=== PATIENT | male | born 1945 | race Caucasian/White ===

== ENCOUNTER 2018-01-03 00:15 | Emergency (ER) | payer MEDICARE ==
[2018-01-03] MEDS ORDERED: SODIUM CHLORIDE 0.9% 1,000 ML IV ONE (00:27)
[2018-01-03] MEDS ORDERED: ONDANSETRON 4 MG/2 ML VIAL IVP STA (00:27)
[2018-01-03] MEDS ORDERED: fentaNYL 100 MCG/2 ML VIAL IVP STA (00:44)
[2018-01-03 01:32] LABS: BASOPHILS # (AUTO) 0.1 10^3/uL (0.0-0.1); BASOPHILS % (AUTO) 1.7 %; EOSINOPHILS # (AUTO) 0.1 10^3/uL (0.0-0.7); EOSINOPHILS % (AUTO) 2.3 %; HGB - HEMOGLOBIN 16.4 g/dL (14.0-18.0); LYMPHOCYTES # (AUTO) 0.7 10^3/uL (1.5-3.5); LYMPHOCYTES % (AUTO) 11.3 %; MEAN CORPUSCULAR HEMOGLOBIN 28.8 pg (27.0-31.0); MEAN CORPUSCULAR HGB CONC 34.4 g/dL (32.0-36.0); MEAN CORPUSCULAR VOLUME 83.9 fL (80.0-94.0); MONOCYTES # (AUTO) 0.4 10^3/uL (0.0-1.0); MONOCYTES % (AUTO) 6.6 %; NEUTROPHILS # (AUTO) 4.7 10^3/uL (1.5-6.6); NEUTROPHILS % (AUTO) 78.1 %; PLT - PLATELET COUNT 181 10^3/uL (130-450); RED BLOOD COUNT 5.68 10^6/uL (4.70-6.10); RED CELL DISTRIBUTION WIDTH 14.2 % (12.0-15.0)
--- NOTE | 2018-01-03 01:32 | ED Physician Documentation ---
History of Present Illness - Stated complaint Stated Complaint: ABD PX - Chief complaint Chief Complaint: Abd Pain - History obtained from History obtained from: Patient - Additonal information Additional information: 72-year-old male presents the emergency department with mid abdominal pain which started earlier this evening. The patient's symptoms are described as moderate. The patient's pain is associated with nausea but the patient denies vomiting or diarrhea. The patient had an episode of pain similar to this a week ago which resolved spontaneously. The patient denies fever, chest pain or shortness of breath. The patient was recently diagnosed with metastatic melanoma but has not started therapy yet. No triggering factors. No relieving factors. Review of Systems Constitutional: denies: Fever Eyes: denies: Discharge Ears: denies: Ear pain Nose: denies: Congestion Throat: denies: Sore throat Cardiac: denies: Chest pain / pressure Respiratory: denies: Cough GI: reports: Abdominal Pain, Nausea. denies: Vomiting, Diarrhea : denies: Dysuria Skin: denies: Rash Musculoskeletal: denies: Neck pain Neurologic: denies: Generalized weakness Immunocompromised: denies: Asplenic, Transplant PD PAST MEDICAL HISTORY - Past Medical History Past Medical History: Yes Cardiovascular: Hypertension Respiratory: None Neuro: None Endocrine/Autoimmune: None, HyPOthyroidism GI: Other : Kidney stones HEENT: Other Musculoskeletal: Other Derm: Other - Past Surgical History Past Surgical History: Yes General: Other HEENT: Tonsil/Adenoidectomy - Present Medications Home Medications: Ambulatory Orders Medication Instructions Recorded Confirmed Levothyroxine Sodium [Levoxyl] 0 mg PO DAILY 08/28/15 12/30/17 hydroCHLOROthiazide 12.5 mg PO DAILY 08/28/15 12/30/17 [Hydrochlorothiazide] Hydrocodone/Acetaminophen 1 each PO Q6H PRN #14 tablet 01/03/18 [Hydrocodon-Acetaminophen 5-325] Ondansetron Odt [Zofran] 4 mg TL Q6H PRN #30 tablet 01/03/18 - Allergies Allergies/Adverse Reactions: Allergies Allergy/AdvReac Type Severity Reaction Status Date / Time morphine AdvReac Unknown Verified 01/03/18 00:26 - Social History Does the pt smoke?: No Smoking Status: Never smoker Does the pt drink ETOH?: No Does the pt have substance abuse?: No - Immunizations Immunizations are current?: Yes - POLST Patient has POLST: No PD ED PE NORMAL - General General: Alert and oriented X 3. No: No acute distress (The patient appears acutely uncomfortable) - HEENT HEENT: Atraumatic, PERRL, EOMI, Ears normal, Moist mucous membranes - Cardiac Cardiac: RRR, Strong equal pulses - Respiratory Respiratory: No respiratory distress, Clear bilaterally - Abdomen Abdomen: Soft, Non distended. No: Non tender (The patient is tender generalized throughout his abdomen, he has no rebound or peritoneal signs) - Derm Derm: Normal color - Extremities Extremities: No deformity, No tenderness to palpate, No edema - Neuro Neuro: Alert and oriented X 3, Normal speech - Psych Psych: Normal affect Results - Vitals Vitals: Vital Signs - 24 hr 01/03/18 01/03/18 01/03/18 00:24 01:22 02:43 Temperature 36.4 C L Heart Rate 61 53 L 94 Respiratory 18 16 17 Rate Blood Pressure 141/75 H 138/82 H 132/87 H O2 Saturation 98 95 98 Oxygen O2 Source Room air - EKG (time done) 02:14 Rate: Rate (enter#) Rhythm: Sinus bradycardia Intervals: Normal DC, QRS normal Ischemia: Normal ST segments - Labs Labs: Laboratory Tests 01/03/18 01/03/18 01/03/18 01:16 01:16 02:25 WBC 6.0 RBC 5.68 Hgb 16.4 Hct 47.7 MCV 83.9 MCH 28.8 MCHC 34.4 RDW 14.2 Plt Count 181 MPV 9.0 Neut # (Auto) 4.7 Lymph # (Auto) 0.7 L [place] # (Auto) 0.4 Eos # (Auto) 0.1 Baso # (Auto) 0.1 Absolute Nucleated RBC 0.00 Nucleated RBC % 0.1 Sodium 137 Potassium 3.1 L Chloride 103 Carbon Dioxide 26 Anion Gap 8.0 BUN 24 H Creatinine 0.8 Estimated GFR (MDRD) 95 Glucose 129 H Calcium 8.2 L Total Bilirubin 0.7 AST 18 ALT 13 Alkaline Phosphatase 54 Total Protein 6.1 L Albumin 3.4 Globulin 2.7 Albumin/Globulin Ratio 1.3 Lipase 24 Urine Color YELLOW Urine Clarity CLEAR Urine pH 6.0 Ur Specific [place] 1.020 Urine Protein NEGATIVE Urine Glucose (UA) NEGATIVE Urine Ketones NEGATIVE Urine Occult Blood NEGATIVE Urine Nitrite NEGATIVE Urine Bilirubin NEGATIVE Urine Urobilinogen 0.2 (NORMAL) Ur Leukocyte Esterase NEGATIVE Ur Microscopic Review NOT INDICATED Urine Culture Comments NOT INDICATED - Rads (name of study) CT abdomen/pelvis Radiology: Final report received (1. No acute inflammatory or obstructive process seen in the abdomen or pelvis 2. Widespread metastatic disease in the lungs, right kidney, peritoneal cavity, and subcutaneous tissues at least.3. Approximately 5 cm soft tissue density at the fundus of the gallbladder. Favor stone and/or sludge ball over metastasis. 4. Fatty liver. 5. Mildly enlarged prostate. ) PD MEDICAL DECISION MAKING - ED course ED course: The patient's workup does not reveal any acute abnormality that would necessitate admission to the hospital or acute surgical consultation. The patient is aware of the metastatic disease which apparently is from melanoma. The patient is already following with oncology and is scheduled to start therapy. The patient's pain on reevaluation is under control. I discussed with the patient and his the findings and plan for discharge. I discussed warning signs and recommended returning to the emergency department immediately for any worsening or any concerns. - Sepsis Event Vital Signs: Vital Signs - 24 hr 01/03/18 01/03/18 01/03/18 00:24 01:22 02:43 Temperature 36.4 C L Heart Rate 61 53 L 94 Respiratory 18 16 17 Rate Blood Pressure 141/75 H 138/82 H 132/87 H O2 Saturation 98 95 98 Oxygen O2 Source Room air Departure - Departure Disposition: 01 Home, Self Care Clinical Impression: Metastatic disease Abdominal pain Qualifiers: Abdominal location: generalized Qualified Code(s): R10.84 - Generalized abdominal pain Gallstone Qualifiers: Cholecystitis presence: without cholecystitis Biliary obstruction: without biliary obstruction Qualified Code(s): K80.20 - Calculus of gallbladder without cholecystitis without obstruction Condition: Good Instructions: Abdominal Pain, Gallstones Dc Follow-Up: Joanna hSepherd MD [Primary Care Provider] - ANUSHA DALEY MD [Provider Admit Priv/Credential] - (Call to schedule an appointment for further evaluation of your gallstone) Prescriptions: Hydrocodone/Acetaminophen [Hydrocodon-Acetaminophen 5-325] 1 each PO Q6H PRN # 14 tablet PRN Reason: pain Ondansetron Odt [Zofran] 4 mg TL Q6H PRN #30 tablet PRN Reason: Nausea / Vomiting Comments: Please return to the ER for worsening symptoms or any concerns
[2018-01-03 02:03] LABS: ALBUMIN 3.4 g/dL (3.2-5.5); ALBUMIN/GLOBULIN RATIO 1.3 (1.0-2.2); BILIRUBIN,TOTAL 0.7 mg/dL (0.2-1.0); CALCIUM 8.2 mg/dL (8.5-10.3); CREATININE 0.8 mg/dL (0.6-1.2); TOTAL PROTEIN 6.1 g/dL (6.7-8.2)
[2018-01-03] MEDS ORDERED: IOPAMIDOL-300 100 ML VIAL ONE (02:05)
[2018-01-03 02:31] LABS: BILIRUBIN,URINE NEGATIVE (NEGATIVE); GLUCOSE, URINE (UA) NEGATIVE (NEGATIVE); KETONES,URINE (UA) NEGATIVE (NEGATIVE); LEUKOCYTE ESTERASE, URINE NEGATIVE (NEGATIVE); NITRITE,URINE NEGATIVE (NEGATIVE); OCCULT BLOOD,URINE NEGATIVE (NEGATIVE); PROTEIN,URINE NEGATIVE (NEGATIVE); UROBILINOGEN,URINE 0.2 (NORMAL) E.U./dL (NORMAL)
[2018-01-03 02:32] LABS: CLARITY,URINE CLEAR (CLEAR)
[2018-01-03] MEDS ORDERED: POTASSIUM CHLORIDE 20 MEQ TABLET PO STA (02:36)
[2018-01-03 02:45] VITALS: BP 132/87
[2018-01-03] MEDS ORDERED: IOPAMIDOL-300 100 ML VIAL IVP ONE (02:48)
--- NOTE | 2018-01-03 03:01 | CT Report ---
Reason: abdominal pain Procedure Date: 01/03/2018 Accession Number: [id number] / [id number] Procedure: CT - Abdomen/Pelvis W/ CPT Code: FULL RESULT: EXAM: CT ABDOMEN AND PELVIS EXAM DATE: 01/03/2018 02:46 AM. CLINICAL HISTORY: Abdominal pain, metastatic melanoma. COMPARISONS: None. TECHNIQUE: Routine helical CT imaging was performed through the abdomen and pelvis. IV contrast: Yes . Enteric contrast: No . Reconstructions: Coronal and sagittal. In accordance with CT protocol optimization, one or more of the following dose reduction techniques were utilized for this exam: automated exposure control, adjustment of mA and/or KV based on patient size, or use of iterative reconstructive technique. FINDINGS: Lung Bases: Numerous pulmonary nodules, consistent with metastatic disease. Liver: Fatty. No definitively suspicious masses. Indeterminate tiny hypodensity in the left liver on image 14, favor cyst. Gallbladder/Bile Ducts: Soft tissue density at the fundus of the gallbladder measuring more than 5 cm without evidence of definitive cholecystitis. Spleen: Unremarkable. Pancreas: Unremarkable. Adrenal Glands: Unremarkable. Kidneys: Right renal solid nodule posteriorly on image 35 measures 28 x 27 mm. Additional right renal cysts. No suspicious left renal masses or hydronephrosis. Peritoneal Cavity/Bowel: No bowel obstruction or inflammatory process seen. No free air or significant free fluid. No masses or adenopathy. The appendix is not seen but there is no evidence of appendicitis. No excessive stool burden. Peritoneal nodule anterior to the liver measuring 13 mm on image 17. Peritoneal nodule noted on image 52 series 3 right paramedian measuring approximately 5 mm. Additional couple of left pelvic sidewall nodules measuring up to 10 mm on image 49. Pelvic Organs: Mildly enlarged prostate. The bladder appears within normal limits. Vasculature: No aneurysms or other significant abnormality. Bones: No significant abnormality. Other: Several subcutaneous nodules, consistent with metastases. These measure up to 18 mm in the right buttock on image 69. Abnormal left inguinal node or subcutaneous metastasis on image 79 measuring 18 x 21 mm. No retroperitoneal adenopathy. IMPRESSION: 1. No acute inflammatory or obstructive process seen in the abdomen or pelvis. 2. Widespread metastatic disease in the lungs, right kidney, peritoneal cavity, and subcutaneous tissues at least. 3. Approximately 5 cm soft tissue density at the fundus of the gallbladder. Favor stone and/or sludge ball over metastasis. 4. Fatty liver. 5. Mildly enlarged prostate. RADIA
== END 2018-01-03 03:30 | disposition home or self-care (01) ==
LOC: ED 00:15
DX: C43.9 Malignant melanoma of skin, unspecified (principal); R10.84 Generalized abdominal pain; K80.20 Calculus of gallbladder without cholecystitis without obstruction; R94.31 Abnormal electrocardiogram [ECG] [EKG]; I10 Essential (primary) hypertension; E03.9 Hypothyroidism, unspecified
CPT/HCPCS: 36415; 74177; 80053; 81003; 83690; 85025; 93005; 96361; 96374; 99284; A9270; Q9967; 81001; 87086

== ENCOUNTER 2018-02-04 12:34 | Outpatient (CLI) | payer MEDICARE ==
[2018-02-04] MEDS ORDERED: SODIUM CHLORIDE FLUSH 0.9% 10 ML SYRINGE ONE (13:07)
--- NOTE | 2018-02-04 16:14 | XRAY Report ---
Reason: OBESITY, HTN, MELANOMA, STAVE IV Procedure Date: 02/04/2018 Accession Number: [id number] / [id number] Procedure: XR - Chest 2 View X-Ray CPT Code: 16577 FULL RESULT: EXAM: CHEST RADIOGRAPHY EXAM DATE: 02/04/2018 12:46 PM. CLINICAL HISTORY: Obesity, hypertension, melanoma stage IV. COMPARISON: 02/17/2010 6:23 AM ABDOMEN/PELVIS W/ 01/03/2018 2:32 AM. TECHNIQUE: 2 views. FINDINGS: Interval development of multiple pulmonary masses. The largest mass in the right lung measures 2.8 cm. The largest left lung mass measures 3.9 cm. At least three additional approximately 1 cm masses are seen in the lower left lung. IMPRESSION: Interval development of pulmonary metastases measuring up to 3.9 cm as described. RADIA
== END 2018-02-04 12:35 | disposition home or self-care (01) ==
LOC: DI 12:34
PROVIDERS: ATTEND Internal Medicine Gastroenterology
DX: C43.9 Malignant melanoma of skin, unspecified (principal); C78.00 Secondary malignant neoplasm of unspecified lung; E66.9 Obesity, unspecified; I10 Essential (primary) hypertension
CPT/HCPCS: 71046

== ENCOUNTER 2018-02-05 13:47 | Outpatient (CLI) | payer MEDICARE ==
[2018-02-05 14:27] LABS: BASOPHILS % (AUTO) 0.4 %; EOSINOPHILS # (AUTO) 0.2 10^3/uL (0.0-0.7); HGB - HEMOGLOBIN 15.7 g/dL (14.0-18.0); LYMPHOCYTES # (AUTO) 0.6 10^3/uL (1.5-3.5); LYMPHOCYTES % (AUTO) 10.9 %; MEAN CORPUSCULAR HEMOGLOBIN 28.6 pg (27.0-31.0); MEAN CORPUSCULAR HGB CONC 33.9 g/dL (32.0-36.0); MEAN CORPUSCULAR VOLUME 84.1 fL (80.0-94.0); MEAN PLATELET VOLUME 8.4 fL (7.4-11.4); MONOCYTES # (AUTO) 0.5 10^3/uL (0.0-1.0); MONOCYTES % (AUTO) 8.7 %; NEUTROPHILS # (AUTO) 4.1 10^3/uL (1.5-6.6); PLT - PLATELET COUNT 184 10^3/uL (130-450); RED CELL DISTRIBUTION WIDTH 13.8 % (12.0-15.0); WHITE BLOOD COUNT 5.3 x10^3/uL (4.8-10.8)
[2018-02-05 14:39] LABS: ALBUMIN 3.7 g/dL (3.2-5.5); ALBUMIN/GLOBULIN RATIO 1.2 (1.0-2.2); BILIRUBIN,TOTAL 0.9 mg/dL (0.2-1.0); CALCIUM 8.8 mg/dL (8.5-10.3); CREATININE 0.8 mg/dL (0.6-1.2); TOTAL PROTEIN 6.8 g/dL (6.7-8.2)
== END 2018-02-05 13:48 | disposition home or self-care (01) ==
LOC: LAB 13:47
PROVIDERS: ATTEND Internal Medicine Gastroenterology
DX: Z01.812 Encounter for preprocedural laboratory examination (principal); C43.9 Malignant melanoma of skin, unspecified
CPT/HCPCS: 36415; 80053; 85025

== ENCOUNTER 2018-02-09 09:11 | Day surgery (SDC) | payer MEDICARE ==
[2018-02-09] MEDS ORDERED: ceFAZolin 2 GM/50 ML 2 GM/50 ML BAG IV ONE (09:26)
--- NOTE | 2018-02-09 09:43 | ANESTHESIA ---
Pre-Anesthesia VS, & Labs - Diagnosis stage 4 melanoma - Procedure portacath placement Vital Signs: Temp Pulse Resp BP Pulse Ox 36.4 C L 72 18 138/80 H 97 02/09/18 09:32 02/09/18 09:32 02/09/18 09:32 02/09/18 09:32 02/09/18 09:32 Height 5 ft 10 in Weight (kg) 100 kg Body Mass Index 32.3 - NPO >8 hours Home Medications and Allergies Levothyroxine Sodium [Levoxyl] 0 mg PO DAILY 08/28/15 hydroCHLOROthiazide [Hydrochlorothiazide] 12.5 mg PO DAILY 08/28/15 Allergies/Adverse Reactions: Allergies Allergy/AdvReac Type Severity Reaction Status Date / Time morphine AdvReac Itching Verified 02/09/18 09:34 Anes History & Medical History - Anesthetic History Anesthesia Complications: reports: No previous complications - Medical History Cardiovascular: reports: Hypertension. denies: Angina Pulmonary: reports: Shortness of breath (states recently has sob with exertion) Gastrointestinal: reports: GERD, Other (takes tums) Urinary: reports: Kidney stones Neuro: reports: None Musculoskeletal: reports: Other Endocrine/Autoimmune: reports: None, HyPOthyroidism Blood Disorders: reports: None Skin: reports: Other Smoking Status: Never smoker - Surgical History General: Other Eyes Ears Nose Throat (EENT): Tonsil/Adenoidectomy, Other (thyroidectomy) Exam General: Alert Dental: WNL, Partials Upper Mouth Openin Fingerbreadth Neck Mobility: Normal Mallampati classification: II Thyromental Distance: 4-6 cm Respiratory: Lungs clear Cardiovascular: Regular rate, Normal S1, Normal S2 Mental/Cognitive Status: Alert/Oriented X3 Plan Anesthesia Type: MAC Consent for Procedure(s) Verified and Reviewed: Yes Code Status: Attempt Resuscitation ASA classification: 4-Incapacitating disease (secondary to metatasitic disease) Is this case an emergency?: No
[2018-02-09] MEDS ORDERED: LACTATED RINGERS 1,000 ML IV ONE ×2 (09:52→12:54)
[2018-02-09] MEDS ORDERED: LIDOCAINE-MPF 1% 30 ML VIAL ONE (09:57)
[2018-02-09] MEDS ORDERED: SODIUM CHLORIDE FLUSH 0.9% 10 ML SYRINGE ONE (09:58)
[2018-02-09] MEDS ORDERED: ceFAZolin 1 GM VIAL ONE (10:01)
[2018-02-09 10:38] LABS: CALCIUM 8.5 mg/dL (8.5-10.3)
[2018-02-09] MEDS ORDERED: LIDOCAINE-MPF 2% 5 ML VIAL IM ONE (10:50)
[2018-02-09] MEDS ORDERED: MIDAZOLAM 2 MG/2 ML VIAL IVP ONE (10:50)
[2018-02-09] MEDS ORDERED: KETAMINE 500 MG/10 ML VIAL IVP ONE (10:50)
[2018-02-09] MEDS ORDERED: PROPOFOL 1000 MG/100 ML IV ONE (10:50)
[2018-02-09] MEDS ORDERED: PROPOFOL 200 MG/20 ML VIAL IVP ONE (10:50)
[2018-02-09] MEDS ORDERED: GLYCOPYRROLATE 1 MG/5 ML VIAL IVP ONE (10:50)
[2018-02-09] MEDS ORDERED: oxyCODONE 5 MG TABLET PO PRN (12:59)
[2018-02-09] MEDS ORDERED: ONDANSETRON 4 MG/2 ML VIAL IVP PRN (12:59)
[2018-02-09 14:38] VITALS: BP 120/66
--- NOTE | 2018-02-09 15:28 | XRAY Report ---
Reason: port a cath placement Procedure Date: 02/09/2018 Accession Number: [id number] / [id number] Procedure: FL - OR Port-A-Cath CPT Code: FULL RESULT: EXAM: FLUOROSCOPIC GUIDANCE EXAM DATE: 02/09/2018 12:37 PM. CLINICAL HISTORY: Port a cath placement. COMPARISON: None. FINDINGS IMPRESSION: Fluoroscopic guidance provided for right Port-A-Cath placement.. Total number of images: 1. RADIA
--- NOTE | 2018-02-09 15:32 | XRAY Report ---
Reason: s/p port placement Procedure Date: 02/09/2018 Accession Number: [id number] / [id number] Procedure: XR - Chest 1 View X-Ray CPT Code: 23863 FULL RESULT: EXAM: CHEST RADIOGRAPHY EXAM DATE: 02/09/2018 01:41 PM. CLINICAL HISTORY: S/p port placement. Metastatic melanoma COMPARISON: 02/04/2018 TECHNIQUE: 1 view. FINDINGS: Lungs/Pleura: Shallow inspiratory effort. No pneumothorax or pleural fluid. Multiple bilateral pulmonary metastasis. Mediastinum: Within exam limitations, the cardiomediastinal contour is unremarkable. Other: Right Port-A-Cath ends at approximately the cavoatrial junction. Question destructive lesion right shoulder. Suggest correlation with the any history of surgery or trauma to the right shoulder. If no significant history exists consider right shoulder x-rays. Surgical clip right chest IMPRESSION: Multiple metastatic lesions to the lungs. Right Port-A-Cath in place. Question destructive lesion right shoulder. See above. RADIA
--- NOTE | 2018-02-09 15:59 | PROCEDURE REPORT ---
DATE OF SERVICE: 02/09/2018 Physician: Con Luz MD PREOPERATIVE DIAGNOSIS: Stage IV melanoma. POSTOPERATIVE DIAGNOSIS: Stage IV melanoma. PROCEDURE PERFORMED: Insertion of PowerPort implantable venous access device. ANESTHESIA: Local plus monitored anesthesia care by Trino Haines CRNA. SURGEON: Con Luz MD ESTIMATED BLOOD LOSS: Minimal. COMPLICATIONS: None. FINDINGS: Initial attempts at placement on the left side were unsuccessful due to inability to pass the guidewire into the central venous circulation. On the right side; however, this was able to be accomplished. A standard PowerPort reservoir was placed in the right infraclavicular location with catheter tip located in the superior vena cava, near the junction with the right atrium confirmed on fluoroscopy. INDICATIONS: Patient is a 72-year-old gentleman with recent diagnosis of stage IV melanoma. He is in need of venous access to facilitate palliative chemotherapy and was advised to undergo placement of an implantable venous access device. TECHNIQUE: After informed consent, the patient was taken to the operating room where he was sedated and monitored. Preoperative preparation included application of sequential calf compression boots, administration 2 grams cefazolin intravenously within an hour of the incision. His anterior neck and chest wall were prepared with ChloraPrep solution and draped in the usual sterile fashion. Lidocaine 1% plain was used for local infiltration anesthesia, approximately 15 mL was used altogether. Beginning with the left side the patient was placed in Trendelenburg position. Needle and syringe were used to easily percutaneously access the left subclavian vein via an infraclavicular approach. The vein was readily accessed and a guidewire was passed into the subclavian vein, but was unable to be passed centrally with the catheter continuing to migrate up the internal jugular vein despite all the usual maneuvers. The guide wire was removed and then using ultrasound guidance, the left internal jugular vein was identified and cannulated. However, attempts to pass centrally were also unsuccessful with guidewire repeatedly entering the cephalic vein and the subclavian vein and unable to be passed centrally. Therefore, the needle and guidewire were removed and then attention was turned to the right side where using an infraclavicular approach, needle and syringe were used to access the right subclavian vein and a guidewire was able to be passed into the central venous circulation with guidewire location confirmed with fluoroscopy. The tract was dilated and an 8-[place] catheter, which had been soaked in antibiotic solution and flushed with heparinized saline was then advanced through the breakaway sheath into the central venous circulation. The sheath was removed. Catheter tip was confirmed to be located near the junction of the SVC and the right atrium. Catheter was seen to aspirate blood and flushed easily. An incision was made medial to the exit site of the catheter, approximately 3 cm in length. A subcutaneous pocket was created. A sufficient size to admit the reservoir, which had been soaked in antibiotic solution and flushed with heparinized saline. After hemostasis had been assured and the pocket irrigated with antibiotic solution the catheter was trimmed to appropriate length and attached to the reservoir hub with a locking device securely attached to the hub. The reservoir was placed into the pocket. Care was taken to avoid kinking of the catheter. The wound was irrigated with antibiotic solution. The reservoir was secured to the pectoral fascia with 4-0 Prolene sutures. Wound closure was accomplished in layers using continuous 3-0 Vicryl reapproximated [place]'s fascia and 4-0 Monocryl subcuticular skin closure, followed by Dermabond. The reservoir was then accessed percutaneously and seen to aspirate blood and flushed easily. It was flushed with 10 mL of heparinized saline and the location of the reservoir was marked with indelible ink. The procedure was terminated and patient transferred out of the operating room in satisfactory condition. Sponge and needle counts correct x2. No drains used. TD: 02/09/2018 13:24 IMAN
== END 2018-02-09 09:12 | disposition home or self-care (01) ==
LOC: SDS 09:11
PROVIDERS: ATTEND Internal Medicine Gastroenterology
PROC: 02HV33Z Insertion of Infusion Device into Superior Vena Cava, Percutaneous Approach (ICD-10-PCS; 2018-02-09)
PROC: 0JH60WZ Insertion of Totally Implantable Vascular Access Device into Chest Subcutaneous Tissue and Fascia, Open Approach (ICD-10-PCS; principal; 2018-02-09 10:15)
DX: C43.9 Malignant melanoma of skin, unspecified (principal); C78.02 Secondary malignant neoplasm of left lung; C78.01 Secondary malignant neoplasm of right lung; C79.31 Secondary malignant neoplasm of brain; C78.80 Secondary malignant neoplasm of unspecified digestive organ; I10 Essential (primary) hypertension; Z85.850 Personal history of malignant neoplasm of thyroid; E89.0 Postprocedural hypothyroidism; Z88.5 Allergy status to narcotic agent; Z79.899 Other long term (current) drug therapy; E66.9 Obesity, unspecified; Z68.32 Body mass index [BMI] 32.0-32.9, adult
CPT/HCPCS: 36415; 36561; 71045; 80048; C1788; J0690; J7120

== ENCOUNTER 2018-03-11 18:41 | Emergency (ER) | payer MEDICARE ==
[2018-03-11 19:18] LABS: BASOPHILS % (AUTO) 0.5 %; EOSINOPHILS # (AUTO) 0.2 10^3/uL (0.0-0.7); EOSINOPHILS % (AUTO) 5.4 %; HGB - HEMOGLOBIN 15.8 g/dL (14.0-18.0); LYMPHOCYTES # (AUTO) 0.6 10^3/uL (1.5-3.5); LYMPHOCYTES % (AUTO) 12.6 %; MEAN CORPUSCULAR HEMOGLOBIN 28.6 pg (27.0-31.0); MEAN CORPUSCULAR HGB CONC 33.4 g/dL (32.0-36.0); MEAN CORPUSCULAR VOLUME 85.6 fL (80.0-94.0); MEAN PLATELET VOLUME 7.9 fL (7.4-11.4); MONOCYTES # (AUTO) 0.4 10^3/uL (0.0-1.0); NEUTROPHILS # (AUTO) 3.3 10^3/uL (1.5-6.6); NEUTROPHILS % (AUTO) 72.5 %; PLT - PLATELET COUNT 204 10^3/uL (130-450); RED BLOOD COUNT 5.53 10^6/uL (4.70-6.10); RED CELL DISTRIBUTION WIDTH 14.9 % (12.0-15.0); WHITE BLOOD COUNT 4.6 x10^3/uL (4.8-10.8)
[2018-03-11 19:34] LABS: ALBUMIN 4.1 g/dL (3.2-5.5); ALBUMIN/GLOBULIN RATIO 1.2 (1.0-2.2); BILIRUBIN,TOTAL 5.6 mg/dL (0.2-1.0); CALCIUM 9.6 mg/dL (8.5-10.3); CREATININE 0.8 mg/dL (0.6-1.2); TOTAL PROTEIN 7.4 g/dL (6.7-8.2)
[2018-03-11 20:03] LABS: GLUCOSE, URINE (UA) NEGATIVE (NEGATIVE); KETONES,URINE (UA) NEGATIVE (NEGATIVE); LEUKOCYTE ESTERASE, URINE NEGATIVE (NEGATIVE); NITRITE,URINE NEGATIVE (NEGATIVE); OCCULT BLOOD,URINE NEGATIVE (NEGATIVE); PH,URINE 5.5 PH (5.0-7.5); PROTEIN,URINE NEGATIVE (NEGATIVE); UROBILINOGEN,URINE 0.2 (NORMAL) E.U./dL (NORMAL)
[2018-03-11 20:08] LABS: BILIRUBIN,URINE MODERATE (NEGATIVE); CLARITY,URINE CLEAR (CLEAR); ICTOTEST,URINE POSITIVE
--- NOTE | 2018-03-11 20:26 | ED Physician Documentation ---
History of Present Illness - Stated complaint Stated Complaint: ABD PX - Chief complaint Chief Complaint: Abd Pain - Additonal information Additional information: hx from pt 72 male [place] metastatic melanoma seenSept for abd pain found to have tumor blocking CBD no ERCP stent etc today inc abd pain same as prior nausea no diarrhea no urinary sx no fever last CT was Sept Review of Systems Constitutional: denies: Fever, Chills Cardiac: denies: Chest pain / pressure Respiratory: denies: Dyspnea GI: reports: Abdominal Pain, Nausea. denies: Diarrhea : denies: Dysuria Endocrine: denies: Easy bruising / bleeding Immunocompromised: denies: Immunocompromised PD PAST MEDICAL HISTORY - Past Medical History Cardiovascular: Hypertension Respiratory: Shortness of breath Neuro: None Endocrine/Autoimmune: None, HyPOthyroidism GI: GERD, Other : Kidney stones HEENT: Other Musculoskeletal: Other Derm: Other - Past Surgical History Past Surgical History: Yes General: Other HEENT: Tonsil/Adenoidectomy, Other - Present Medications Home Medications: Ambulatory Orders Medication Instructions Recorded Confirmed Levothyroxine Sodium [Levoxyl] 0 mg PO DAILY 08/28/15 02/17/18 hydroCHLOROthiazide 12.5 mg PO DAILY 08/28/15 02/17/18 [Hydrochlorothiazide] Ondansetron Odt [Zofran] 4 mg TL Q6H PRN #30 tablet 01/03/18 02/17/18 Hydrocodone/Acetaminophen 1 each PO Q8H PRN 03/03/18 02/17/18 [Hydrocodon-Acetaminophen 5-325] - Allergies Allergies/Adverse Reactions: Allergies Allergy/AdvReac Type Severity Reaction Status Date / Time morphine AdvReac Itching Verified 03/11/18 19:04 - Social History Does the pt smoke?: No Smoking Status: Never smoker Does the pt drink ETOH?: No Does the pt have substance abuse?: No - Immunizations Immunizations are current?: Yes - POLST Patient has POLST: No PD ED PE NORMAL - Vitals Vital signs reviewed: Yes - Cardiac Cardiac: RRR - Respiratory Respiratory: No respiratory distress - Abdomen Abdomen: Soft, Non tender, Other (moderate TTP mid upper abd s peritoneal signs or pulsatile mass) - Derm Derm: Normal color - Neuro Neuro: Alert and oriented X 3 Results - Vitals Vitals: Vital Signs - 24 hr 03/11/18 03/11/18 03/11/18 19:01 21:15 22:33 Temperature 36.9 C 36.8 C Heart Rate 87 79 79 Respiratory 16 17 17 Rate Blood Pressure 169/89 H 132/75 H 123/75 O2 Saturation 98 94 95 03/11/18 03/12/18 23:12 00:06 Temperature Heart Rate 81 88 Respiratory 17 17 Rate Blood Pressure 147/87 H 133/89 H O2 Saturation 95 95 Oxygen O2 Source Room air - Labs Labs: Laboratory Tests 03/11/18 03/11/18 03/11/18 19:13 19:13 19:57 WBC 4.6 L RBC 5.53 Hgb 15.8 Hct 47.3 MCV 85.6 MCH 28.6 MCHC 33.4 RDW 14.9 Plt Count 204 MPV 7.9 Neut # (Auto) 3.3 Lymph # (Auto) 0.6 L [place] # (Auto) 0.4 Eos # (Auto) 0.2 Baso # (Auto) 0.0 Absolute Nucleated RBC 0.00 Nucleated RBC % 0.1 Sodium 141 Potassium 3.1 L Chloride 100 L Carbon Dioxide 32 Anion Gap 9.0 BUN 18 Creatinine 0.8 Estimated GFR (MDRD) 95 Glucose 123 H Calcium 9.6 Total Bilirubin 5.6 H AST 381 H ALT 423 H Alkaline Phosphatase 188 H Total Protein 7.4 Albumin 4.1 Globulin 3.3 Albumin/Globulin Ratio 1.2 Lipase 31 Urine Color DARK YELLOW Urine Clarity CLEAR Urine pH 5.5 Ur Specific [place] >=1.030 H Urine Protein NEGATIVE Urine Glucose (UA) NEGATIVE Urine Ketones NEGATIVE Urine Occult Blood NEGATIVE Urine Nitrite NEGATIVE Urine Bilirubin MODERATE H Urine Urobilinogen 0.2 (NORMAL) Ur Leukocyte Esterase NEGATIVE Ur Microscopic Review NOT INDICATED Urine Culture Comments NOT INDICATED PD MEDICAL DECISION MAKING - ED course ED course: d/w [facility] doc re potential transfer for abd pain elev bili and known tumor blocking GB/CBD many hr later still waiting pt is pain free after toradol he has no fever nl WBC he just wants to go home unlieky ERCP or stent would be done at night any way they live close by will return if worse I will continue to communicate with Jerry but focus on trying to set up outpt Departure - Departure Disposition: 01 Home, Self Care Clinical Impression: Abnormal liver function test Abdominal pain Qualifiers: Abdominal location: right upper quadrant Qualified Code(s): R10.11 - Right upper quadrant pain Condition: Good Comments: We know from your previous CT scan that the tumor is blocking your gallbladder. Today you liver tests were much higher than before The plan was to transfer you to a bigger hospital for consideration of a stent to drain your gallbladder. But after several hr of waiting you have chosen to go home for now and touch base with [facility] tomorrow to proceed as an outpatient If you are worse in any way, please return to the ER
[2018-03-11] MEDS: ONDANSETRON 4 MG/2 ML VIAL IVP STA (20:45)
[2018-03-11] MEDS: SODIUM CHLORIDE 0.9% 1,000 ML IV ONE (20:45)
[2018-03-11] MEDS: KETOROLAC 60 MG/2 ML VIAL IVP STA (20:46)
[2018-03-12 01:01] VITALS: BP 148/85
[2018-03-12] MEDS: POTASSIUM CHLORIDE 20 MEQ TABLET PO STA (01:12)
== END 2018-03-12 01:05 | disposition home or self-care (01) ==
LOC: ED 18:41
DX: R94.5 Abnormal results of liver function studies (principal); R10.11 Right upper quadrant pain; I10 Essential (primary) hypertension; E03.9 Hypothyroidism, unspecified; Z87.442 Personal history of urinary calculi; C43.9 Malignant melanoma of skin, unspecified
CPT/HCPCS: 36415; 80053; 81001; 81003; 83690; 85025; 87086; 96361; 96374; 96375; 99283

== ENCOUNTER 2018-08-27 11:50 | Outpatient (CLI) | payer MEDICARE ==
[2018-08-27] MEDS ORDERED: IOVERSOL 320 50 ML VIAL ONE (12:09)
[2018-08-27] MEDS ORDERED: IOVERSOL 320 100 ML VIAL IVP ONE ×2 (12:10→13:28)
[2018-08-27] MEDS ORDERED: IOVERSOL 320 50 ML VIAL PO ONE (13:28)
--- NOTE | 2018-08-27 16:07 | CT Report ---
Reason: MELANOMA/DEHYDRATION Procedure Date: 08/27/2018 Accession Number: [id number] / [id number] Procedure: CT - SOFT TISSUE NECK W CPT Code: FULL RESULT: EXAM: CT SOFT TISSUE NECK WITH CONTRAST. EXAM DATE: 08/27/2018 01:04 PM. HISTORY: Melanoma. COMPARISONS: No prior soft tissue neck CT. TECHNIQUE: Routine soft tissue neck CT protocol. Reconstructions: Coronal and sagittal. IV contrast: 90 mL Isovue-300. In accordance with CT protocol optimization, one or more of the following dose reduction techniques were utilized for this exam: automated exposure control, adjustment of mA and/or KV based on patient size, or use of iterative reconstructive technique. FINDINGS: No pathologically enlarged cervical lymph node. No focal solid enhancing or space-occupying neck mass. Nonvisualized thyroid gland. Unremarkable appearance of the parotid and submandibular salivary glands. No acute inflammatory changes or enhancing mass of the pharynx or larynx. No significant asymmetry of the larynx. Symmetric unremarkable appearing orbits. No focal intracranial space occupying lesion identified. Chronic arthritic changes are present in the regional skeleton. Patent cervical carotid and vertebral arteries. No IJ obstruction or thrombus. Central venous catheter with chest port is present on the right. IMPRESSION: No evidence for tumor mass or adenopathy in the neck. RADIA
--- NOTE | 2018-08-27 16:53 | CT Report ---
Reason: MELANOMA/DEHYDRATION Procedure Date: 08/27/2018 Accession Number: [id number] / [id number] Procedure: CT - CHEST W CPT Code: FULL RESULT: EXAM: CT CHEST EXAM DATE: 08/27/2018 01:04 PM. CLINICAL HISTORY: Melanoma, dehydration COMPARISONS: CHEST ANGIO (AORTA) 04/21/2018 9:[address] WHOLE BODY 06/08/2018 2:09 PM. TECHNIQUE: Routine helical CT imaging was performed through the chest. IV contrast: 90 cc Isovue-300. Reconstructions: Coronal and sagittal. In accordance with CT protocol optimization, one or more of the following dose reduction techniques were utilized for this exam: automated exposure control, adjustment of mA and/or KV based on patient size, or use of iterative reconstructive technique. FINDINGS: Lungs/Pleura: Interval decrease in size of nodules within the lungs. Examples include left upper lobe 1.5 x 1.1 cm image 31 series 3 (1.7 x 1.6 cm on the previous examination), right upper lobe 0.4 x 0.9 cm image 21 (0.7 x 1.0 cm), and right middle lobe 0.5 x 0.8 cm image 32 (1.0 x 1.0 cm). No new nodules are seen. No evidence of consolidation or effusion. There is no evidence of lung edema. No pneumothorax. Mediastinum: Mild interval decrease in size of mediastinal and hilar lymph nodes. Index examples include low paratracheal 0.9 x 0.6 cm image 25 series 2 (0.7 x 1.1 cm on the previous examination), right hilar 1.7 x 1.0 cm image 29 (2.1 x 1.4 cm), and left hilar 1.0 x 0.7 cm image 32 (1.2 x 1.1 cm). No new enlarged thoracic lymph nodes are seen. Heart size is within normal limits. Aortic contour is within normal limits. Bones: No acute bony abnormalities are seen. Visualized Abdomen: Findings are detailed separately. Other: None. IMPRESSION: 1. Interval decrease in size of nodules within the lungs. 2. Mild interval decrease in size of mediastinal and hilar lymph nodes. 3. No acute pulmonary CT process. 4. Findings within the abdomen and pelvis are detailed separately. RADIA
--- NOTE | 2018-08-27 17:19 | CT Report ---
Reason: MELANOMA/DEHYDRATION Procedure Date: 08/27/2018 Accession Number: [id number] / [id number] Procedure: CT - Abdomen/Pelvis W CPT Code: FULL RESULT: EXAM: CT ABDOMEN AND PELVIS EXAM DATE: 08/27/2018 01:04 PM. CLINICAL HISTORY: Melanoma, dehydration COMPARISONS: CHEST ANGIO (AORTA) 04/21/2018 9:[address] WHOLE BODY 06/08/2018 2:09 PM ABDOMEN/PELVIS ANGIO 04/21/2018 9:31 AM. TECHNIQUE: Routine helical CT imaging was performed through the abdomen and pelvis. IV contrast: ISOVUE 300 90mL. Enteric contrast: Positive. Reconstructions: Coronal and sagittal. In accordance with CT protocol optimization, one or more of the following dose reduction techniques were utilized for this exam: automated exposure control, adjustment of mA and/or KV based on patient size, or use of iterative reconstructive technique. FINDINGS: Lung Bases: Findings are detailed separately. Liver: No suspicious hepatic lesions are seen. Gallbladder/Bile Ducts: There is hyperdensity within the gallbladder fundus. This demonstrated increased metabolic activity on PET scan; this suggests gallbladder metastasis. Spleen: Normal. Pancreas: There is fatty replacement of the pancreas. Adrenal Glands: Normal. Kidneys: There is a 2.3 x 2.3 cm isodense lesion within the posterior cortex of the right kidney. This is stable. Peritoneal Cavity/Bowel: No dilated or thick-walled bowel is seen. No intraperitoneal free air or free fluid. No enlarged mesenteric or retroperitoneal lymph nodes. No evidence of appendicitis. Pelvic Organs: Normal. The bladder and visualized pelvic organs are within normal limits. Vasculature: No acute vascular abnormalities are seen. Bones: No acute bony abnormalities. Other: Previously visualized right gluteal region soft tissue nodule is not definitely seen on this examination. Previously visualized hypermetabolic left inguinal lymph node has significantly decreased in size. No new subcutaneous nodules are seen. IMPRESSION: 1. Findings within the chest are detailed separately. 2. Relatively stable gallbladder intraluminal hyperdensity which is suspicious for metastasis. 3. Stable iso-to hypodense lesion within the posterior cortex of the right kidney. 4. No acute gastrointestinal tract abnormality is seen. 5. No significant bony abnormalities. RADIA
[2018-08-27] MEDS ORDERED: GADOBUTROL 10 MMOL/10 ML VIAL ONE (18:19)
[2018-08-27] MEDS ORDERED: GADOBUTROL 10 MMOL/10 ML VIAL IVP ONE (18:37)
--- NOTE | 2018-08-27 23:12 | MRI Report ---
Reason: MELANOMA/DEHYDRATION Procedure Date: 08/27/2018 Accession Number: [id number] / [id number] Procedure: MRI - Brain W/WO CPT Code: FULL RESULT: EXAM: MRI BRAIN WITHOUT AND WITH CONTRAST EXAM DATE: 08/27/2018 06:25 PM. CLINICAL HISTORY: Metastatic melanoma. Evaluate for brain metastasis. COMPARISON: Prior PET/CT imaging study 06/08/2018. TECHNIQUE: Multiplanar, multisequence T1-weighted and fluid-sensitive MR sequences of the brain were performed. Sequences optimized for routine evaluation. Other: None. IV Contrast: 8 cc Gadavist. Findings: Relevant images are indicated (image number, series number). There is no acute/subacute ischemic change in the brain. Mild brain atrophy. There is mild scattered periventricular, subcortical white matter disease. Mild compensatory ventricular enlargement. Shunt there does appear to be a 5.2 mm enhancing nodule within the left basal ganglia, abnormality seen on unenhanced axial T1 weighted image (64, 402). No other suspicious enhancing lesions of the brain, meninges. Note, postcontrast imaging does not show the entirety of the brain including vertex. No suspicious marrow lesion. Impressions: 1. Findings suspicious for single intra-axial enhancing lesion left basal ganglia, in junction with the left caudate head (65, 1002), measuring 5.2 mm diameter in this patient with history of metastatic melanoma, consider solitary brain metastasis. Otherwise no suspicious enhancement in the brain. 2. No acute or subacute ischemic change. 3. Mild brain atrophy. 4. Mild superimposed scattered white matter disease most likely related to chronic small vessel ischemic disease. RADIA
== END 2018-08-27 11:51 | disposition home or self-care (01) ==
LOC: DI 11:50
PROVIDERS: ATTEND Internal Medicine Hematology & Oncology
DX: C43.8 Malignant melanoma of overlapping sites of skin (principal); C79.31 Secondary malignant neoplasm of brain; E86.0 Dehydration; G31.9 Degenerative disease of nervous system, unspecified; R90.82 White matter disease, unspecified; N28.9 Disorder of kidney and ureter, unspecified; R91.8 Other nonspecific abnormal finding of lung field; K82.9 Disease of gallbladder, unspecified
CPT/HCPCS: 70491; 70553; 71260; 74177

== ENCOUNTER 2018-09-29 08:00 | Outpatient (CLI) | payer MEDICARE ==
[2018-09-29 12:52] LABS: CREATININE 0.9 mg/dL (0.6-1.2)
== END 2018-09-29 23:59 | disposition home or self-care (01) ==
LOC: LAB.R 08:00
PROVIDERS: ATTEND Radiology Radiation Oncology
DX: C43.8 Malignant melanoma of overlapping sites of skin (principal); C79.31 Secondary malignant neoplasm of brain
CPT/HCPCS: 82565; 84520

== ENCOUNTER 2018-11-10 09:00 | Outpatient (CLI) | payer MEDICARE ==
[2018-11-10 09:37] LABS: PSA TOTAL 4.18 ng/mL (0.000-2.000)
== END 2018-11-10 23:59 | disposition home or self-care (01) ==
LOC: LAB.R 09:00
PROVIDERS: ATTEND Student in an Organized Health Care Education/Training Program
DX: E29.1 Testicular hypofunction (principal)
CPT/HCPCS: 84153; 84403; 85014

== ENCOUNTER 2018-12-31 14:15 | Outpatient (CLI) | payer MEDICARE ==
[2018-12-31] MEDS ORDERED: GADOBUTROL 10 MMOL/10 ML VIAL ONE (14:39)
[2018-12-31] MEDS ORDERED: GADOBUTROL 15 MMOL/15 ML VIAL ONE (14:40)
[2018-12-31] MEDS ORDERED: GADOBUTROL 15 MMOL/15 ML VIAL IVP ONE (15:14)
--- NOTE | 2018-12-31 16:48 | MRI Report ---
Reason: METASTATIC MELANOMA Procedure Date: 12/31/2018 Accession Number: [id number] / [id number] Procedure: MRI - Brain W/WO CPT Code: FULL RESULT: EXAM: MRI BRAIN WITHOUT AND WITH CONTRAST EXAM DATE: 12/31/2018 03:24 PM. CLINICAL HISTORY: 73-year-old male. METASTATIC MELANOMA. COMPARISON: BRAIN W/WO 08/27/2018 5:53 PM. TECHNIQUE: Multiplanar, multisequence T1-weighted and fluid-sensitive MR sequences of the brain were performed before and after administration of intravenous contrast. Sequences optimized for routine evaluation. Other: None. IV Contrast: 10 ML Gadavist. FINDINGS: Brain Volume: Mild to moderate diffuse cerebral volume loss with ex vacuo dilatation of the ventricles and sulci. Parenchyma: No acute hemorrhage, mass effect, or infarct. Scattered T2/FLAIR hyperintense periventricular, deep, and subcortical white matter lesions within cerebral hemispheres bilaterally. Redemonstration 6 mm focus of enhancement left-sided anterior limb of internal capsule (series 1000 doing 58), with associated T2 hypointensity (series 601 image 11) and prominent susceptibility artifact (series 801 image 11). No other enhancing lesions. However, additional punctate T2 hypointense lesions with associated susceptibility artifact are seen in the right occipital lobe (series 601 image 12, series 801 image 12), anterior right frontal lobe (series 601 image 12, series 801 image 12), and 2 lesions in the right parietal lobe (series 601 image 17, series 801 image 17) Ventricles/Cisterns: No hydrocephalus. No abnormal extra-axial fluid collection or hemorrhage. Orbits: Symmetric and unremarkable. Sella Turcica: The pituitary gland, cavernous sinuses, suprasellar cistern and optic chiasm are unremarkable. IAC: Symmetric and unremarkable. Vasculature: Normal signal flow void is seen in the major arterial structures at the skull base. The dural sinuses are patent and enhance normally. Sinuses: Moderate mucosal thickening bilateral maxillary sinuses. The remaining paranasal sinuses are clear. Bones: No focal pathologic appearing marrow signal changes. Other: None. IMPRESSION: 1. No MRI evidence of acute intracranial abnormality. Specifically, no evidence of acute or subacute infarct, acute intracranial hemorrhage, mass effect, midline shift, or hydrocephalus. 2. Redemonstration 6 mm focus of enhancement left-sided anterior limb of internal capsule (series 1000 doing 58), with associated T2 hypointensity (series 601 image 11) and prominent susceptibility artifact (series 801 image 11). As previously discussed, this lesion may represent a melanoma metastasis, possibly a treated metastasis, with intralesional blood products. 3. No other enhancing lesions. However, there are additional punctate T2 hypointense lesions with associated susceptibility artifact: right occipital lobe (series 601 image 12, series 801 image 12), anterior right frontal lobe (series 601 image 12, series 801 image 12), and 2 lesions in the right parietal lobe (series 601 image 17, series 801 image 17). Excluding enhancement, these lesions share imaging characteristics with the enhancing lesion discussed above, and may also represent melanoma metastases as some metastases can solely be observable on T2*. This includes the possibility of treated metastases. However, other diagnostic considerations are possible, including chronic microhemorrhages and small cavernous malformations. 4. Scattered T2/FLAIR hyperintense periventricular, deep, and subcortical white matter lesions within cerebral hemispheres bilaterally. While nonspecific, these have a rectal represent sequela of chronic microangiopathy. [facility]
== END 2018-12-31 14:16 | disposition home or self-care (01) ==
LOC: DI 14:15
PROVIDERS: ATTEND Physician Assistant
DX: C43.8 Malignant melanoma of overlapping sites of skin (principal); C79.31 Secondary malignant neoplasm of brain
CPT/HCPCS: 70553; A9585

== ENCOUNTER 2019-01-01 13:40 | Outpatient (CLI) | payer MEDICARE ==
[2019-01-01] MEDS ORDERED: IOVERSOL 320 100 ML VIAL IVP ONE ×2 (14:03→15:14)
[2019-01-01] MEDS ORDERED: IOVERSOL 320 50 ML VIAL ONE (14:03)
[2019-01-01] MEDS ORDERED: IOVERSOL 320 50 ML VIAL PO ONE (15:14)
--- NOTE | 2019-01-04 10:45 | CT Report ---
Reason: METASTATIC MELANOMA Procedure Date: 01/01/2019 Accession Number: [id number] / [id number] Procedure: CT - CHEST W CPT Code: FULL RESULT: EXAM: CT CHEST EXAM DATE: 01/01/2019 03:28 PM. CLINICAL HISTORY: Metastatic melanoma. COMPARISONS: CHEST W/ 08/27/2018 1:04 PM CHEST ANGIO (AORTA) 04/21/2018 9:31 AM. TECHNIQUE: Routine helical CT imaging was performed through the chest. IV contrast: 90 cc Optiray 320. Reconstructions: Coronal and sagittal. In accordance with CT protocol optimization, one or more of the following dose reduction techniques were utilized for this exam: automated exposure control, adjustment of mA and/or KV based on patient size, or use of iterative reconstructive technique. FINDINGS: Lungs/Pleura: Bilateral pulmonary nodules again demonstrated. Within the left lung, the dominant nodule is again demonstrated within the anterior medial left upper lobe measuring 1.4 x 0.9 cm nodule, previously 1.5 x 1.2 cm. Just anterior to that there are 2 small peripheral nodules (3/, 29), one of which is new or increased. A previous very small lingular segment left upper lobe nodule (previously 3/31) is now not definitely seen. An ill-defined approximate 5 mm nodule within the anterior lingular segment likely represents a different new nodule. Some tiny nodules within the left lower lobe appear new and/or increased (3/, 37). Within the right lung, a medial upper lobe apical nodule measures 4 x 9 mm (3/19), is without change. A 3 mm right middle lobe nodule is stable (3/37) and an anteromedial peripheral right lower lobe 3 mm nodule(3/37) are stable. An irregular 4 x 8 mm right middle lobe nodule appears slightly decreased (3/31), previously 5 x 8 mm. A very small nodule within the anterior right middle lobe is stable (3/39, 40). No acute infiltrate. No pleural effusion. No pneumothorax. Mediastinum: An enlarged right hilar lymph node has decreased, now measuring 1.0 x 1.4 cm, previously 1.0 x 1.7 cm. A subcarinal lymph node has decreased, short axis 0.7 cm, previously 0.9 cm. Additional subcentimeter short axis mediastinal and left hilar lymph nodes are without substantial change. Normal heart size. No pericardial effusion. Right central venous port tip projects to near the cavoatrial junction. No axillary adenopathy. Bones: Unremarkable. Visualized Abdomen: Refer to the abdomen and pelvis CT report from today. Other: None. IMPRESSION: 1. Multiple bilateral pulmonary nodules again demonstrated, some new, some stable and some decreased, as detailed above. 2. Decreased right hilar adenopathy. Decreased subcarinal lymph node. Additional subcentimeter short axis mediastinal left hilar lymph nodes are without significant change. [facility]
--- NOTE | 2019-01-04 17:36 | CT Report ---
Reason: METASTATIC MELANOMA Procedure Date: 01/01/2019 Accession Number: [id number] / [id number] Procedure: CT - Abdomen/Pelvis W CPT Code: FULL RESULT: EXAM: CT ABDOMEN AND PELVIS WITH IV CONTRAST EXAM DATE: 01/01/2019 03:28 PM. CLINICAL HISTORY: Metastatic melanoma. COMPARISONS: ABDOMEN/PELVIS W/ 08/27/2018 1:04 PM. ABDOMEN/PELVIS ANGIO 04/21/2018 9:31 AM. ABDOMEN/PELVIS W/ 01/03/2018 2:32 AM. TECHNIQUE: Routine helical CT imaging was performed through the abdomen and pelvis. IV contrast: OPTI 320, 90 mL. Enteric contrast: Yes. Reconstructions: Coronal and sagittal. In accordance with CT protocol optimization, one or more of the following dose reduction techniques were utilized for this exam: automated exposure control, adjustment of mA and/or KV based on patient size, or use of iterative reconstructive technique. FINDINGS: Lung bases: Minimal bibasilar atelectasis. Liver: Small hypodensity again seen at the lateral segment left hepatic lobe measuring 1 cm, mildly increased, probable liver cyst. Gallbladder: The gallbladder is contracted, which limits evaluation. There is new calcification within the gallbladder, could represent calcification of a known gallbladder mass/metastasis versus calcified gallstones versus calcification of the gallbladder wall. Bile ducts: Unremarkable. Pancreas: Pancreatic lipomatosis. Spleen: Unremarkable. Adrenals: Small bilateral adrenal glands. Kidneys: Right upper pole renal cyst measuring 4 cm. A couple of small right renal cysts. Solid-appearing renal mass seen at the mid pole posterior right kidney, measures 2.5 x 2.6 cm, appears similar to the prior. Tiny hypodensity lower pole left kidney. No hydronephrosis. Left parapelvic renal cysts, small. Bowel: No dilated bowel loops are seen. No acute bowel findings. The appendix is not seen. No free fluid or free air. Pelvis: The bladder and remaining pelvic organs appear unremarkable. Vasculature: No acute findings. No inguinal or pelvic lymphadenopathy. No retroperitoneal or mesenteric lymphadenopathy. No subcutaneous nodules are seen. Bones: No acute bone findings. IMPRESSION: 1. The gallbladder is contracted, which limits evaluation. There is new calcification within the gallbladder, could represent calcification of a known gallbladder mass/metastasis versus calcified gallstones versus calcification of the gallbladder wall. 2. Solid-appearing right renal mass appears similar to the prior. This is concerning for renal cell carcinoma versus metastasis. Correlate clinically. 3. See above. [facility]
== END 2019-01-01 13:41 | disposition home or self-care (01) ==
LOC: DI 13:40
PROVIDERS: ATTEND Physician Assistant
DX: C43.8 Malignant melanoma of overlapping sites of skin (principal); C79.31 Secondary malignant neoplasm of brain; R91.8 Other nonspecific abnormal finding of lung field; R59.0 Localized enlarged lymph nodes; K82.8 Other specified diseases of gallbladder; N28.9 Disorder of kidney and ureter, unspecified
CPT/HCPCS: 71260; 74177; Q9967

== ENCOUNTER 2019-03-30 23:39 | Outpatient (CLI) | payer MEDICARE | END 2019-03-30 23:59 | disposition critical access hospital (66) | LOC: EMS 23:39 | PROVIDERS: ATTEND Surgery | DX: R41.0 Disorientation, unspecified (principal); R19.7 Diarrhea, unspecified; R03.1 Nonspecific low blood-pressure reading; R11.2 Nausea with vomiting, unspecified; R50.9 Fever, unspecified; Z91.81 History of falling | CPT/HCPCS: A0425; A0427 ==

== ENCOUNTER 2019-03-30 23:45 | Inpatient (IN) | payer MEDICARE ==
[2019-03-30] MEDS ORDERED: SODIUM CHLORIDE 0.9% 1,000 ML IV ONE (23:52)
--- NOTE | 2019-03-31 00:19 | ED Physician Documentation ---
PD HPI ALTERED MENTAL STATUS - Stated complaint Stated Complaint: ALOC - Chief complaint Chief Complaint: Neuro - History obtained from History obtained from: Patient, EMS - History of Present Illness Timing - onset: Last night (He started feeling generally ill with some nausea and malaise. He was seen in the [facility] clinic by Dr. Kebede this morning when he was supposed to be getting some interim immunotherapy for his melanoma. He had been receiving immunotherapy for over the last 6 months or so without any notable side effects. Since he was feeling ill this morning he was just given IV fluids and no chemotherapy. His states they went home and he was resting in bed. She went out for some errands and came home to find him on the floor with some diarrhea and unable to get himself back up. He felt warm. EMS was called and they found him to have a temperature of 104. He denied any headache chest pain or belly pain. He had had the nausea and malaise through the day and then this afternoon had vomiting and diarrhea.) Timing - details: Abrupt onset Quality / character: Confused, Disoriented Associated symptoms: Fever, NVD, General weakness. No: Headache, Cough, Urinary sx, Focal weakness Contributing factors: Cancer. No: Anticoagulated, Diabetic, New medication, Recent illness, Recent injury Basline status: Alert and oriented X 3 Treatment [employer]: Accucheck Similar symptoms before: Has not had sx before Recently seen: Clinic Review of Systems Constitutional: reports: Fever (today) Eyes: denies: Loss of vision Throat: reports: Sore throat GI: reports: Nausea, Vomiting, Diarrhea (today) Skin: denies: Rash, Lesions Musculoskeletal: denies: Neck pain, Back pain Neurologic: reports: Altered mental status (sluggish thought process). denies: Headache Endocrine: reports: Weight loss Immunocompromised: reports: Immunocompromised PD PAST MEDICAL HISTORY - Past Medical History Cardiovascular: Hypertension Respiratory: Shortness of breath Neuro: None Endocrine/Autoimmune: None, HyPOthyroidism GI: GERD, Other : Kidney stones HEENT: Other Musculoskeletal: Other Derm: Other - Past Surgical History Past Surgical History: Yes General: Other HEENT: Tonsil/Adenoidectomy, Other - Present Medications Home Medications: Ambulatory Orders Medication Instructions Recorded Confirmed Levothyroxine Sodium [Levoxyl] 88 mcg PO DAILY 08/28/15 03/30/19 Hydrocodone/Acetaminophen 1 each PO Q8H PRN 03/03/18 03/30/19 [Hydrocodon-Acetaminophen 5-325] Potassium Chloride 20 meq ORAL BID 04/21/18 03/30/19 oxyCODONE [Roxicodone] 5 mg PO Q4-6H PRN #20 tablet 04/21/18 03/30/19 Megestrol Acetate [Megace Es] 40 mg PO BID 05/26/18 03/30/19 Ondansetron [Ondansetron Odt] 8 mg PO Q8H PRN 07/15/18 03/30/19 Hydrocortisone 10 mg PO BID 07/21/18 03/30/19 Fludrocortisone [Florinef] 0.05 mg PO DAILY 07/22/18 03/30/19 dimenhyDRINATE [Dimenhydrinate] 12.5 mg PO Q8HR PRN 08/18/18 03/30/19 Fludrocortisone [Florinef] 0.5 mg PO DAILY 09/15/18 03/30/19 Testosterone [Androderm] 1 each TD DAILY 10/13/18 03/30/19 - Allergies Allergies/Adverse Reactions: Allergies Allergy/AdvReac Type Severity Reaction Status Date / Time nivolumab [From Opdivo] AdvReac Intermediate LOWER Verified 03/30/19 09:38 EXTREMITY PAIN morphine AdvReac Itching Verified 03/30/19 09:38 - Social History Does the pt smoke?: No Smoking Status: Never smoker Does the pt drink ETOH?: No Does the pt have substance abuse?: No - Immunizations Immunizations are current?: Yes - POLST Patient has POLST: No PD ED PE NORMAL - Vitals Vital signs reviewed: Yes - General General: Alert and oriented X 3 (He is alert and conversant though seems to have a bit of a weak voice.), Well developed/nourished, Other (Dry oral mucosa with some chapped lips. There is some redness in the posterior pharynx uniformly without any exudate. No white spots.) - HEENT HEENT: Atraumatic. No: Moist mucous membranes - Neck Neck: Supple, no meningeal sign, No adenopathy - Cardiac Cardiac: RRR, No murmur - Respiratory Respiratory: No respiratory distress, Clear bilaterally - Abdomen Abdomen: Normal bowel sounds, Soft, Non tender, Non distended, No organomegaly - Male Male : Deferred - Rectal Rectal: Deferred, Other (No rash or sores seen at the perirectal area. Digital exam was not performed.) - Back Back: No CVA TTP - Derm Derm: Warm and dry. No: Normal color (He is having some flushing coloration around the face. Generally there is no rash seen.) - Extremities Extremities: No tenderness to palpate, Normal ROM s pain, No edema - Neuro Neuro: Alert and oriented X 3, No motor deficit Eye Opening: Spontaneous Motor: Obeys Commands Verbal: Oriented GCS Score: 15 Results - Vitals Vitals: Vital Signs - 24 hr 03/30/19 03/30/19 03/31/19 23:47 23:58 00:40 Temperature 39 C H Heart Rate 98 96 Respiratory 14 18 Rate Blood Pressure 103/58 L 98/50 L O2 Saturation 97 87 L 99 03/31/19 03/31/19 03/31/19 01:15 01:30 01:48 Temperature 37.8 C H Heart Rate 100 105 H 104 H Respiratory 22 19 19 Rate Blood Pressure 116/63 77/50 L 81/54 L O2 Saturation 99 96 97 03/31/19 01:54 Temperature Heart Rate 104 H Respiratory 22 Rate Blood Pressure 71/49 L O2 Saturation 94 Oxygen O2 Source Nasal cannula - Labs Labs: Laboratory Tests 03/31/19 03/31/19 03/31/19 00:20 00:20 00:20 WBC 3.4 L RBC 5.62 Hgb 16.3 Hct 51.0 MCV 90.7 MCH 29.0 MCHC 32.0 RDW 14.7 Plt Count 114 L MPV 10.9 Neut # (Auto) 2.4 Lymph # (Auto) 0.6 L [place] # (Auto) 0.2 Eos # (Auto) 0.1 Baso # (Auto) 0.0 Absolute Nucleated RBC 0.00 Nucleated RBC % 0.0 Sodium 138 Potassium 3.6 Chloride 109 Carbon Dioxide 20 L Anion Gap 9.0 BUN 33 H Creatinine 1.4 H Estimated GFR (MDRD) 50 L Glucose 89 Lactic Acid 0.9 Calcium 7.5 L Magnesium Total Bilirubin 1.7 H AST 25 ALT 17 Alkaline Phosphatase 39 L Total Creatine Kinase Total Protein 5.7 L Albumin 3.3 Globulin 2.4 Albumin/Globulin Ratio 1.4 Lipase 26 Urine Color Urine Clarity Urine pH Ur Specific [place] Urine Protein Urine Glucose (UA) Urine Ketones Urine Occult Blood Urine Nitrite Urine Bilirubin Urine Urobilinogen Ur Leukocyte Esterase Urine RBC Urine WBC Urine WBC Clumps Ur Epithelial Cells Ur Squamous Epith Cells Urine Crystals Amorphous Sediment Urine Bacteria Urine Casts Urine Starch Urine Mucus Urine Trichomonas Urine Yeast Urine Sperm Ur Oval Fat Bodies Ur Microscopic Review Urine Culture Comments Influenza A (Rapid) Influenza B (Rapid) Group A Strep Rapid 03/31/19 03/31/19 03/31/19 00:20 00:20 00:20 WBC RBC Hgb Hct MCV MCH MCHC RDW Plt Count MPV Neut # (Auto) Lymph # (Auto) [place] # (Auto) Eos # (Auto) Baso # (Auto) Absolute Nucleated RBC Nucleated RBC % Sodium 139 Potassium 3.5 Chloride 109 Carbon Dioxide 20 L Anion Gap 10.0 BUN 34 H Creatinine 1.4 H Estimated GFR (MDRD) 50 L Glucose 89 Lactic Acid Calcium 7.6 L Magnesium 1.5 L Total Bilirubin 1.6 H AST 26 ALT 18 Alkaline Phosphatase 41 L Total Creatine Kinase 103 Total Protein 5.6 L Albumin 3.3 Globulin 2.3 Albumin/Globulin Ratio 1.4 Lipase Urine Color Urine Clarity Urine pH Ur Specific [place] Urine Protein Urine Glucose (UA) Urine Ketones Urine Occult Blood Urine Nitrite Urine Bilirubin Urine Urobilinogen Ur Leukocyte Esterase Urine RBC Urine WBC Urine WBC Clumps Ur Epithelial Cells Ur Squamous Epith Cells Urine Crystals Amorphous Sediment Urine Bacteria Urine Casts Urine Starch Urine Mucus Urine Trichomonas Urine Yeast Urine Sperm Ur Oval Fat Bodies Ur Microscopic Review Urine Culture Comments Influenza A (Rapid) Negative Influenza B (Rapid) Negative Group A Strep Rapid Negative 03/31/19 00:53 WBC RBC Hgb Hct MCV MCH MCHC RDW Plt Count MPV Neut # (Auto) Lymph # (Auto) [place] # (Auto) Eos # (Auto) Baso # (Auto) Absolute Nucleated RBC Nucleated RBC % Sodium Potassium Chloride Carbon Dioxide Anion Gap BUN Creatinine Estimated GFR (MDRD) Glucose Lactic Acid Calcium Magnesium Total Bilirubin AST ALT Alkaline Phosphatase Total Creatine Kinase Total Protein Albumin Globulin Albumin/Globulin Ratio Lipase Urine Color YELLOW Urine Clarity CLEAR Urine pH 5.0 Ur Specific [place] 1.020 Urine Protein NEGATIVE Urine Glucose (UA) NEGATIVE Urine Ketones NEGATIVE Urine Occult Blood TRACE-INTA Urine Nitrite NEGATIVE Urine Bilirubin NEGATIVE Urine Urobilinogen 0.2 (NORMAL) Ur Leukocyte Esterase NEGATIVE Urine RBC Cancelled Urine WBC Cancelled Urine WBC Clumps Cancelled Ur Epithelial Cells Cancelled Ur Squamous Epith Cells Cancelled Urine Crystals Cancelled Amorphous Sediment Cancelled Urine Bacteria Cancelled Urine Casts Cancelled Urine Starch Cancelled Urine Mucus Cancelled Urine Trichomonas Cancelled Urine Yeast Cancelled Urine Sperm Cancelled Ur Oval Fat Bodies Cancelled Ur Microscopic Review NOT INDICATED Urine Culture Comments NOT INDICATED Influenza A (Rapid) Influenza B (Rapid) Group A Strep Rapid PD MEDICAL DECISION MAKING - ED course Complexity details: re-evaluated patient (Prior to antibiotics starting but after the IV acetaminophen, the patient's blood pressure did lower down to the 80s systolic. He developed a bit more flushing of the face and chest. He denied any itching or trouble breathing. His temperature has decreased. His heart rate is still normal. I do not think it is an allergic reaction to the Tylenol. Again he had not started the antibiotics as yet. Still concern for infections and given the fever and some redness of the skin, be concern for toxin related such as staph scalded skin or such. Will be sure to promptly continue the IV antibiotics. He is given more IV fluids and if this has not improved his pressure promptly, will we can start low-dose pressors. is in the department evaluating the patient. The patient will go to the ICU.), considered differential (Concern for infection with a fever and general malaise. Presume intestinal illness given his symptoms of vomiting and diarrhea. He does not have belly pain or focal tenderness. We will check sepsis markers and blood count and give IV fluids. However we want to cover for general infections and sepsis so we will check chest x-ray and urine test and provide initial IV antibiotics.), d/w patient Departure - Departure Disposition: 66 [facility] DC/Xfer Clinical Impression: Immunocompromised, Generalized weakness, Nausea vomiting and diarrhea Fever Qualifiers: Fever type: unspecified Qualified Code(s): R50.9 - Fever, unspecified Condition: Stable Record reviewed to determine appropriate education?: Yes
[2019-03-31] MEDS ORDERED: SODIUM CHLORIDE 0.9% 1,000 ML IV ONE ×2 (00:30→01:55)
[2019-03-31] MEDS ORDERED: ACETAMINOPHEN 1,000 MG/100 ML 100 ML IV STA (00:30)
[2019-03-31 00:31] LABS: BASOPHILS % (AUTO) 0.9 %; EOSINOPHILS # (AUTO) 0.1 10^3/uL (0.0-0.7); EOSINOPHILS % (AUTO) 2.6 %; HGB - HEMOGLOBIN 16.3 g/dL (14.0-18.0); LYMPHOCYTES # (AUTO) 0.6 10^3/uL (1.5-3.5); LYMPHOCYTES % (AUTO) 18.7 %; MEAN CORPUSCULAR VOLUME 90.7 fL (80.0-94.0); MEAN PLATELET VOLUME 10.9 fL (7.4-11.4); MONOCYTES # (AUTO) 0.2 10^3/uL (0.0-1.0); MONOCYTES % (AUTO) 6.4 %; NEUTROPHILS # (AUTO) 2.4 10^3/uL (1.5-6.6); NEUTROPHILS % (AUTO) 68.8 %; PLT - PLATELET COUNT 114 10^3/uL (130-450); RED BLOOD COUNT 5.62 10^6/uL (4.70-6.10); RED CELL DISTRIBUTION WIDTH 14.7 % (12.0-15.0); WHITE BLOOD COUNT 3.4 x10^3/uL (4.8-10.8)
[2019-03-31] MEDS ORDERED: VANCOMYCIN INJ 2 GM in SODIUM CHLORIDE 0.9% 500 ML IV STA (00:31)
[2019-03-31] MEDS ORDERED: CEFEPIME 2 GM in SODIUM CHLORIDE 0.9% MINIBAG 100 ML IV STA (00:31)
[2019-03-31 00:41] LABS: ALBUMIN 3.3 g/dL (3.2-5.5); ALBUMIN/GLOBULIN RATIO 1.4 (1.0-2.2); BILIRUBIN,TOTAL 1.7 mg/dL (0.2-1.0); CALCIUM 7.5 mg/dL (8.5-10.3); CREATININE 1.4 mg/dL (0.6-1.2); TOTAL PROTEIN 5.7 g/dL (6.7-8.2)
[2019-03-31 00:44] LABS: ALBUMIN 3.3 g/dL (3.2-5.5); ALBUMIN/GLOBULIN RATIO 1.4 (1.0-2.2); BILIRUBIN,TOTAL 1.6 mg/dL (0.2-1.0); CALCIUM 7.6 mg/dL (8.5-10.3); CREATININE 1.4 mg/dL (0.6-1.2); MAGNESIUM 1.5 mg/dL (1.7-2.8); TOTAL PROTEIN 5.6 g/dL (6.7-8.2)
--- NOTE | 2019-03-31 00:58 | XRAY Report ---
Reason: ALOC, hypoxia Procedure Date: 03/31/2019 Accession Number: [id number] / [id number] Procedure: XR - Chest 2 View X-Ray CPT Code: 31941 Final Report FULL RESULT: EXAM: CHEST RADIOGRAPHY EXAM DATE: 03/31/2019 12:43 AM. CLINICAL HISTORY: ALOC, hypoxia. COMPARISON: CHEST 1 VIEW 02/09/2018 1:26 PM. TECHNIQUE: 2 views. FINDINGS: Lungs/Pleura: No focal opacities evident. No pleural effusion. No pneumothorax. Normal volumes. Mediastinum: Heart and mediastinal contours are unremarkable. Other: Port-A-Cath remains on the right with the tip in the superior vena cava. IMPRESSION: No acute infiltrates. RADIA
[2019-03-31 01:06] LABS: BILIRUBIN,URINE NEGATIVE (NEGATIVE); GLUCOSE, URINE (UA) NEGATIVE (NEGATIVE); KETONES,URINE (UA) NEGATIVE (NEGATIVE); LEUKOCYTE ESTERASE, URINE NEGATIVE (NEGATIVE); NITRITE,URINE NEGATIVE (NEGATIVE); OCCULT BLOOD,URINE TRACE-INTA (NEGATIVE); PROTEIN,URINE NEGATIVE (NEGATIVE); UROBILINOGEN,URINE 0.2 (NORMAL) E.U./dL (NORMAL)
[2019-03-31 01:07] LABS: CLARITY,URINE CLEAR (CLEAR)
[2019-03-31] MEDS ORDERED: IOVERSOL 320 100 ML VIAL IVP ONE ×2 (01:48→02:58)
[2019-03-31] MEDS ORDERED: WATER FOR INJECTION,STERILE 40 ML ONE (01:56)
[2019-03-31] MEDS ORDERED: ACETAMINOPHEN 325 MG TABLET PO PRN ×2 (02:12→12:49)
[2019-03-31] MEDS ORDERED: ONDANSETRON 4 MG/2 ML VIAL IVP PRN (02:12)
[2019-03-31] MEDS ORDERED: MAGNESIUM SULFATE 2 GRAM 2 GM/50 ML BAG IV ONE (02:26)
--- NOTE | 2019-03-31 02:36 | HISTORY & PHYSICAL EXAMINATION ---
Chief Complaint - Chief Complaint Chief Complaint: n/v/d, AMS, fever History of Present Illness - Admitted From Admitted From:: [facility] - History Obtained From Records Reviewed: yes History obtained from: patient and spouse - History of Present Illness HPI Comment/Other: Patient is a 73 y/o male who presented to the ED with complain of n/v/d and fever. His reports that he had 4 episodes of completely liquid stool that she witnessed today but it may have been more. He has metastatic melanoma and is on immunosuppresants (nivolumab and ipi limumab) every [address] [place]ebede [place] [facility] His last visit was 03/30/19. It was decided that he would not receive any treatment today because he appeared weak. Instead he was given IV hydration. When he went home he had the episodes of diarrhea. His found him where he had slumped to the floor and couldn't get up. He seemed confused at the time and felt warm. In the ED he was found to have a temperature of 39C. He had dry/chapped lips. He had a WBC of 3.4. Blood cultures were drawn. He was given IV fluids and started on antibiotics. In the course of treatment his blood pressure dropped to a SBP of 71. This did not improve despite 3L of IV fluids. The patient also suddenly became very flushed while receiving cefepime. As a result he was admitted to the ICU. History - Past Medical History Cardiovascular: reports: Hypertension Neuro: reports: None Endocrine/Autoimmune: reports: None, HyPOthyroidism GI: reports: GERD, Other : reports: Kidney stones HEENT: reports: Other Musculoskeletal: reports: Other Derm: reports: Other MRSA Hx?: No Other Past Medical History: Metastatic melanoma - Past Surgical History General: reports: Other HEENT: reports: Tonsil/Adenoidectomy, Other Other past surgical history: lithotripsy. port placement. thyroidectomy - Family & Social History Family History Comment/Other: mother and four aunts had lung cancer. They were a ll smokers. An uncle had leukemia Living arrangement: At home Living Situation: With spouse/s.o. Social History Notes: He denies alcohol, tobacco or illicit drug use - POLST Patient has POLST: No Meds/Allgy - Home Medications Home Medications: Ambulatory Orders Medication Instructions Recorded Confirmed Levothyroxine Sodium [Levoxyl] 88 mcg PO DAILY 08/28/15 03/30/19 Hydrocodone/Acetaminophen 1 each PO Q8H PRN 03/03/18 03/30/19 [Hydrocodon-Acetaminophen 5-325] Potassium Chloride 20 meq ORAL BID 04/21/18 03/30/19 oxyCODONE [Roxicodone] 5 mg PO Q4-6H PRN #20 tablet 04/21/18 03/30/19 Megestrol Acetate [Megace Es] 40 mg PO BID 05/26/18 03/30/19 Ondansetron [Ondansetron Odt] 8 mg PO Q8H PRN 07/15/18 03/30/19 Hydrocortisone 10 mg PO BID 07/21/18 03/30/19 Fludrocortisone [Florinef] 0.05 mg PO DAILY 07/22/18 03/30/19 dimenhyDRINATE [Dimenhydrinate] 12.5 mg PO Q8HR PRN 08/18/18 03/30/19 Fludrocortisone [Florinef] 0.5 mg PO DAILY 09/15/18 03/30/19 Testosterone [Androderm] 1 each TD DAILY 10/13/18 03/30/19 - Allergies Allergies/Adverse Reactions: Allergies Allergy/AdvReac Type Severity Reaction Status Date / Time nivolumab [From Opdivo] AdvReac Intermediate LOWER Verified 03/30/19 09:38 EXTREMITY PAIN morphine AdvReac Itching Verified 03/30/19 09:38 Review of Systems - Constitutional Constitutional: reports: Fatigue, Fever, Weakness - Eyes Eyes: denies: Blurred vision, Dipolpia - Ears, Nose & Throat Ears, Nose & Throat: denies: Tinnitus - Cardiovascular Cariovascular: reports: Palpitations. denies: Chest pain, Edema, L ightheadedness, Syncope, Exertional dyspnea, Decr. exercise tolerance - Respiratory Respiratory: denies: Cough, Sputum production, Wheezing, SOB at rest, SOB with exertion - Gastrointestinal Gastrointestinal: reports: Diarrhea, Nausea, Vomiting. denies: Abdominal pain, Abdominal distention - Genitourinary Genitourinary: denies: Dysuria, Frequency, Urgency, Hematuria, Incontinence, Flank pain - Musculoskeletal Musculoskeletal: denies: Back pain - Integumentary Integumentary: reports: Other (flushed). denies: Rash, Pruritis - Neurological Neurological: reports: General weakness - Psychiatric Psychiatric: denies: Depression, Anxiety - Endocrine Endocrine: denies: Polyuria, Polydypsia - Hematologic/Lymphatic Hematologic/Lymphatic: denies: Anemia, Bruising, Petechiae Prior Level of Functionality: He is usually independent of activities of daily living Exam - Vital Signs Vital Signs: Vital Signs x48h Temp Pulse Resp BP Pulse Ox 03/31/19 02:24 100 24 80/50 L 98 03/31/19 02:13 99 24 86/53 L 95 03/31/19 02:09 103 H 26 H 76/48 L 94 03/31/19 01:54 104 H 22 71/49 L 94 03/31/19 01:48 104 H 19 81/54 L 97 03/31/19 01:30 37.8 C H 105 H 19 77/50 L 96 03/31/19 01:15 100 22 116/63 99 03/31/19 00:40 96 18 98/50 L 99 03/30/19 23:58 87 L 03/30/19 23:47 39 C H 98 14 103/58 L 97 - Physical Exam General Appearance: positive: No acute distress, Alert Eyes Bilateral: positive: Normal inspection, PERRL, EOMI ENT: positive: Dry mucous membranes Neck: positive: Nml inspection, No JVD, Trachea midline Respiratory: positive: Chest non-tender, No respiratory distress, Breath sounds nml. negative: Wheezes, Rales, Rhonchi Cardiovascular: positive: No murmur, Tachycardia Abdomen: positive: Non-tender, No organomegaly, Nml bowel sounds, No distention. negative: Guarding, Rebound Back: positive: Nml inspection Skin: positive: Other (flushed appearance) Extremities: positive: Non-tender, Full ROM, Nml appearance, No pedal edema Neurologic/Psychiatric: positive: Oriented x3, CN's nml (2-12), Motor nml, Sensation nml, Mood/affect nml Sepsis Event Note (H) - Evaluation Current Stage of Sepsis: Septic shock Possible source of Sepsis: positive: Unknown - Sepsis Criteria Sepsis Criteria: Suspected or Documented, Recorded Temperature greater than 38.3C or Less than 36C, Recorded Heart Rate greater than 90 bpm, Recorded Respiratory Rate greater than 20, WBC count greater than 12,000 or less than 4000, SBP drop more than 40mHg, MAP less than 65 mmHg, SBP less than 90 mmHg Conclusion/Plan - Problem List (1) Septic shock Conclusion/Plan: Patient started on vancomycin with pharmacy to dose Cefepime and flagyl. Blood and stool cultures pending. CT chest was unremarkable for and acute infectious process CT abdomen and pelvis pending. C.diff test pending. Will trend lactic acid X2 more IV hydration. Patient received 3L normal saline so far with 2L pending. (2) Hypothyroidism Conclusion/Plan: Resume synthroid once verified (3) Metastatic melanoma Conclusion/Plan: Man[place] Kebede [place] [facility] (4) Acute kidney injury Conclusion/Plan: Likely prerenal 2/2 poor oral intake, vomiting and diarrhea And suspected sepsis. Expect improvement with IV hydration - Lab Results Fish Bones: 03/31/19 05:55 03/31/19 05:55 Core Measures - Anticipated LOS I expect patient to be DC'd or transferred within 96 hours.: Yes - DVT/VTE - Prophylaxis VTE/DVT Device ordered at admit?: Yes
[2019-03-31] MEDS ORDERED: VANCOMYCIN PER PHARMACY 100 GM in SODIUM CHLORIDE 0.9% 250 ML IV SCH (03:00)
[2019-03-31] MEDS: SODIUM CHLORIDE 0.9% 1,000 ML IV SCH ×6 (03:24→22:24)
--- NOTE | 2019-03-31 03:48 | CT Report ---
Reason: fever and hypotension Procedure Date: 03/31/2019 Accession Number: [id number] / [id number] Procedure: CT - CHEST W CPT Code: Final Report FULL RESULT: EXAM: CT CHEST EXAM DATE: 03/31/2019 02:53 AM CLINICAL HISTORY: Fever and hypotension. Current nontuberculous infection. COMPARISONS: CHEST W/ 01/01/2019 3:24 PM, ABDOMEN/PELVIS W/ 01/01/2019 3:24 PM. TECHNIQUE: Routine helical CT imaging was performed through the chest. IV contrast: 100 mL Optiray 320. Reconstructions: Coronal and sagittal. In accordance with CT protocol optimization, one or more of the following dose reduction techniques were utilized for this exam: automated exposure control, adjustment of mA and/or KV based on patient size, or use of iterative reconstructive technique. FINDINGS: Lungs and Pleura: Bibasilar dependent atelectasis is noted. There is no significant pulmonary consolidation demonstrated. Small peribronchovascular nodule within the left upper lobe paramediastinal location measuring 14 x 9 mm is noted, without significant change when accounting for differences in technique. Additional small irregular 8 mm nodular density within the right middle lobe is also stable (image 162 series 3). Subtle tiny inferior lingular nodule (image 188 series 3) again noted. There is a ground-glass nodule within the left upper lobe measuring 12 mm (image 92 series 3). Right middle lobe nodule measuring 5 mm, increased from the prior study (image 174 series 3). Small irregular additional anterior right middle lobe nodule measuring 8 mm (image 169 series 3), new from the prior study. Central Airways: Visualized central airways are without suspicious filling defects. Chest Wall: Right-sided Port-A-Cath device tip projects along the inferior portion of the right atrium. Thyroid: No significant abnormality. Mediastinum: No significant abnormality. Heart: Normal in size. No significant pericardial effusion. Aorta: Normal caliber. Upper Abdomen: Again seen is a cyst arising from the upper portion of the right kidney laterally posteriorly, measuring 3.9 cm (image 107 series 2). Subtle heterogeneous intermediate density lesion within the medial portion of the right mid kidney is noted, difficult to assess and characterize. Please refer to the report of the prior CT from 01/01/2019 with regards to description and assessment of this finding. There is a enhancing nodule within the gallbladder fundus region, measuring 16 mm (image 91 series 2). Stones are noted within the gallbladder neck region. Hepatic steatosis is present. Small low-density superiorly within liver segment-2 is noted, probably a cyst. No significant change from the prior study. Small hiatal hernia suspected. Bones: No suspicious bony lesions evident. Multilevel degenerative changes within the spine. IMPRESSION: 1. No significant pulmonary consolidation. Mild dependent atelectasis. No effusion. 2. A few scattered lung nodules are noted, largest of which measures 14 x 9 mm within the left upper lobe. Most of these appear stable. There is at least one new right middle lobe nodule measuring up to 8 mm. Additional right middle lobe nodule measuring 5 mm demonstrates increased size from the prior study. These may represent a sequelae of chronic indolent infection. Follow-up examination recommended at 3 months. 3. Small 12 mm left upper lobe ground-glass nodule. This may represent a nonspecific infectious or inflammatory process. Attention on the above recommended study would be helpful. 4. There is an apparent enhancing nodule within the gallbladder fundus, measuring 16 mm. While this could be a large polyp, a gallbladder adenocarcinoma is difficult to exclude with certainty on imaging. 5. Gallstones are noted.
--- NOTE | 2019-03-31 03:55 | CT Report ---
Reason: fever, diarrhea Procedure Date: 03/31/2019 Accession Number: [id number] Procedure: CT - Abdomen/Pelvis W CPT Code: Final Report FULL RESULT: EXAM: CT ABDOMEN AND PELVIS EXAM DATE: 03/31/2019 02:53 AM CLINICAL HISTORY: Fever, diarrhea. COMPARISONS: ABDOMEN/PELVIS W/ 01/01/2019 3:24 PM, ABDOMEN/PELVIS ANGIO 04/21/2018 9:31 AM, CHEST ANGIO (AORTA) 04/21/2018 9:31 AM. TECHNIQUE: Routine helical CT imaging was performed through the abdomen and pelvis. IV contrast: 100 mL Optiray 320. Enteric contrast: No. Reconstructions: Coronal and sagittal. In accordance with CT protocol optimization, one or more of the following dose reduction techniques were utilized for this exam: automated exposure control, adjustment of mA and/or KV based on patient size, or use of iterative reconstructive technique. FINDINGS: ABDOMEN: Liver: Stable tiny cyst within the superior portion of liver segment-2. Background of at least mild hepatic steatosis. Stomach/Distal Esophagus: No significant abnormality. Gallbladder: Gallstones are noted. Enhancing nodule within the gallbladder fundus region measuring 1.6 cm (image 26 series 3). Bile Ducts: No significant abnormality. Pancreas: Moderate fatty involution of the pancreas. Spleen: No significant abnormality. Kidneys: Indeterminate rounded intermediate density lesion within the medial portion of the right mid kidney, measuring 2.7 x 2.5 cm. Accounting for differences in technique, no significant change from the prior study. No kidney stone or hydronephrosis is demonstrated at this time. Adrenals: No significant abnormality. Bowel: There is fluid throughout the colon, suggesting a diarrheal event. No pathologic wall thickening of the colon or abnormal enhancement of the colonic wall demonstrated. No pericolonic stranding is demonstrated. There is no evidence of small bowel obstruction. Appendix: There is a tiny vestigial appendix. Lymph Nodes: No pathologically enlarged nodes. Vasculature: Normal caliber aorta. Fluid: No significant free fluid. Abdominal Wall: No significant abnormality. Other: No significant abnormality. PELVIS: Prostate and Seminal Vesicles: No significant abnormality. Bladder: There is a stable tiny lipoma within the right lateral bladder wall (image 87 series 3). No suspicious bladder filling defect noted. Lymph Nodes: No pathologically enlarged nodes. Fluid: No significant free fluid. Other: None. BONES: No suspicious bony lesions. There is moderate multilevel degenerative change within the spine. LOWER CHEST: No significant consolidation or effusion. IMPRESSION: 1. Enhancing nodule within the gallbladder fundus region measuring 1.6 cm is again noted. In a patient with history of melanoma, this could represent metastatic disease. A pathologic gallbladder polyp or a potential primary gallbladder carcinoma are in the differential diagnosis. 2. Gallstones are present without evidence of acute cholecystitis. No biliary dilation. 3. Fluid within the colon suggesting a diarrheal event. No findings to indicate primary colitis on this examination. 4. No evidence of bowel obstruction. 5. Stable 2.7 x 2.5 cm intermediate density lesion within the medial portion of the right mid kidney. This is indeterminate. Stability from the prior 2018 study favors a benign etiology. This could be further assessed with a follow-up renal ultrasound at 6 months. 6. Please refer to the report of the chest CT dictated separately. RADIA
[2019-03-31] MEDS: metroNIDAZOLE 500 MG/100 ML 500 MG/100 ML BAG IV SCH ×3 (04:36→20:07)
[2019-03-31 06:11] LABS: BASOPHILS % (AUTO) 0.5 %; EOSINOPHILS % (AUTO) 1.6 %; HGB - HEMOGLOBIN 16.1 g/dL (14.0-18.0); LYMPHOCYTES % (AUTO) 20.8 %; MEAN CORPUSCULAR HEMOGLOBIN 29.1 pg (27.0-31.0); MEAN CORPUSCULAR HGB CONC 32.1 g/dL (32.0-36.0); MEAN CORPUSCULAR VOLUME 90.6 fL (80.0-94.0); MEAN PLATELET VOLUME 11.2 fL (7.4-11.4); MONOCYTES % (AUTO) 2.9 %; NEUTROPHILS % (AUTO) 71.8 %; PLT - PLATELET COUNT 116 10^3/uL (130-450); RED BLOOD COUNT 5.53 10^6/uL (4.70-6.10); RED CELL DISTRIBUTION WIDTH 14.9 % (12.0-15.0); WHITE BLOOD COUNT 3.8 x10^3/uL (4.8-10.8)
[2019-03-31 06:14] LABS: ABNORMAL LYMPHS % (MANUAL) 0 %
[2019-03-31 06:21] LABS: CALCIUM 6.8 mg/dL (8.5-10.3); CREATININE 1.4 mg/dL (0.6-1.2); MAGNESIUM 2.3 mg/dL (1.7-2.8); PHOSPHORUS 2.6 mg/dL (2.5-4.6)
[2019-03-31 06:37] LABS: BAND NEUTROPHILS % (MANUAL) 10 %; DIFFERENTIAL COMMENT MANUAL DIFFERENTIAL; EOSINOPHILS # (MANUAL) 0.1 10^3/uL (0-0.7); LYMPHOCYTES % (MANUAL) 26 %; MONOCYTES # (MANUAL) 0.1 10^3/uL (0.0-1.0); PLATELET ESTIMATE, MANUAL DECREASED (<130,000) (NORMAL); RBC MORPHOLOGY (MULTIPLE) NORMAL APPEARANCE (NORMAL)
[2019-03-31 09:00] LABS: VBG PH 7.314 (7.31-7.41)
[2019-03-31] MEDS: SODIUM CHLORIDE FLUSH 0.9% 10 ML SYRINGE IVP PRN (09:12)
[2019-03-31] MEDS: NYSTATIN POWDER 15 GM TOP SCH ×3 (10:50→22:30)
[2019-03-31] MEDS: SODIUM CHLORIDE FLUSH 0.9% 10 ML SYRINGE IVP SCH ×2 (10:53→18:13)
--- NOTE | 2019-03-31 12:12 | PROVIDER PROGRESS NOTE ---
Assessment/Plan - Problem List (1) Severe sepsis Assessment/Plan: Has severe sepsis evidenced by low WBC, fever, hypotension and tachycardia and new diarrhea. Blood and stool for cx orders are written, no (+) results yet. He is on empiric iv Vanco, iv Cefepime and iv Flagyl, for a presumed abdominal source, such as colitis. Continue iv fluids Thomas to follow I's and O's Follow BMP and CBC daily (2) Shock Assessment/Plan: This is felt to be septic shock and hypovelemic shock. The hypovelemia is from diarrheal fluid losses plus adrenal insufficiency. Continue iv NS at 125 cc/hr. Add D5LR iv fluids, via a second iv. Resume Flourinef at a slightly higher dose (it was 0.05 mg daily at home, will use 0.1 mg daily here). Start "stress doses" of steroids (he was on Hydrocortisone 10 mg po bid at home, will start Hydrocortisone 30 mg iv tid for 3 days [the 3x3 rule] and then return to his po doses after that). (3) Adrenal insufficiency Assessment/Plan: He is adrenally suppressed from being on exogenous steroids of Hydrocortisone plus Fludrocortisone. The at bedside gave me details that he has a Dx of adrenakl insud=fficiency and that he ran out of his Hydrocortisone for 1.5 days. Resume Flourinef at a slightly higher dose (it was 0.05 mg daily at home, will use 0.1 mg daily here). Start "stress doses" of steroids (he was on Hydrocortisone 10 mg po bid at home, will start Hydrocortisone 30 mg iv tid for 3 days [the 3x3 rule] and then return to his po doses after that). (4) Diarrhea Assessment/Plan: Awaiting cultures. Replace fluid losses as above. Diet is only clear liquids, for bowel rest Thomas for I's and O's and comfort and to prevent a UTI with this much diarrhea (5) N&V (nausea and vomiting) Assessment/Plan: Continue prn antiemetics. Replace fluids as above and give D5 for some calories (6) Acute kidney injury Assessment/Plan: KEILY from intravascular volume depletion, and also possibly due to ATN from shock and renal hypoperfusion. Continue iv fluids. Monitor renal labs daily. (7) Hypothyroidism Qualifiers: Hypothyroidism type: postoperative Qualified Code(s): E89.0 - Postprocedural hypothyroidism Assessment/Plan: Hr had thyroid CA which was treated and cured and ulices is on replacement, and the Oncologist told him and the that the chemo would make the needed dose fluctuate. Currently his TSH is very low, indicating he was on an excessively high Synthroid dose. Will plan no Synthroid pill today. I told him and the at bedside this plan. Resume po Synthroid in 1-2 days, hopefully as his N/V improve, and at a lower dose. (8) Metastatic melanoma Assessment/Plan: He received no (planned) chemo at his [facility] appointment yesterday, since he appeared so ill. He gets a steroid dose before the Nivolumab once a month, which is on top of the tid Hydrocortisone and daily Fludrocortisone that he is on. The imaging of chest and abdomen showed "nodules" in chest and near GB, which may be his mets. - Current Meds Current Meds: Current Medications Generic Name Dose Route Start Last Admin Trade Name Georgeq PRN Reason Stop Dose Admin Sodium Chloride 1,000 mls @ 150 mls/hr 03/31/19 03:00 03/31/19 10:53 Normal Saline 0.9% IV 150 mls/hr .Q6H40M LUCHO Infusion Vancomycin HCl 100 gm/ Sodium 250 mls @ 167 mls/hr 03/31/19 03:00 03/31/19 03:44 Chloride IV Not Given Q400H LUCHO Metronidazole 500 mg in 100 mls @ 100 mls/hr 03/31/19 03:00 03/31/19 10:50 Flagyl 500 Mg/100 Ml IV 100 mls/hr Q8H LUCHO Administration Sodium Chloride 1,000 mls @ 999 mls/hr 03/31/19 02:34 03/31/19 06:14 Normal Saline 0.9% IV 04/01/19 03:35 Infused ONCE [facility] Infusion Nystatin 1 applic 03/31/19 09:00 03/31/19 10:50 Nystop TOP 1 applic BID LUCHO Administration Sodium Chloride 10 ml 03/31/19 09:00 03/31/19 10:53 Normal Saline Flush 0.9% IVP Not Given 0100,0900,1700 LUCHO Sodium Chloride 10 ml 03/31/19 02:12 03/31/19 09:12 Normal Saline Flush 0.9% IVP 30 ml PRN PRN Administration NEEDED PER PROVIDER ORDERS - Lab Result Fish Bone Diagrams: 03/31/19 05:55 03/31/19 05:55 - Additional Planning My Orders: My Active Orders 03/31/19 12:00 D5LR @ 83.333 mls/hr Dextrose 5%-Lactated Ringers [D5lr] 1,000 ml IV 83.333 mls/hr 03/31/19 13:00 Fludrocortisone [Florinef] 0.1 mg PO DAILY 03/31/19 14:00 Hydrocortisone Succinate [Solu-CORTEF] 30 mg IVP TID 04/03/19 09:00 Hydrocortisone [Cortef] 10 mg PO BID Subjective - Subjective Patient Reports: Diarrhea (Decreasing frequency), Other (Sore throat and has chills) Nursing Reports: Diarrhea (The RN reported that his diarrheal bowel movements are voluminous (250 cc at a time)) Objective Vital Signs: Vital Signs - 24 hr 03/30/19 03/30/19 03/31/19 23:47 23:58 00:40 Temperature 39 C H Heart Rate 98 96 Heart Rate [ Monitoring electrodes] Respiratory 14 18 Rate Blood Pressure 103/58 L 98/50 L Blood Pressure [Left Brachial artery] Blood Pressure [Right Brachial artery] O2 Saturation 97 87 L 99 03/31/19 03/31/19 03/31/19 01:15 01:30 01:48 Temperature 37.8 C H Heart Rate 100 105 H 104 H Heart Rate [ Monitoring electrodes] Respiratory 22 19 19 Rate Blood Pressure 116/63 77/50 L 81/54 L Blood Pressure [Left Brachial artery] Blood Pressure [Right Brachial artery] O2 Saturation 99 96 97 03/31/19 03/31/19 03/31/19 01:54 02:09 02:13 Temperature Heart Rate 104 H 103 H 99 Heart Rate [ Monitoring electrodes] Respiratory 22 26 H 24 Rate Blood Pressure 71/49 L 76/48 L 86/53 L Blood Pressure [Left Brachial artery] Blood Pressure [Right Brachial artery] O2 Saturation 94 94 95 03/31/19 03/31/19 03/31/19 02:24 02:55 02:56 Temperature Heart Rate 100 96 94 Heart Rate [ Monitoring electrodes] Respiratory 24 14 13 Rate Blood Pressure 80/50 L 74/53 L Blood Pressure [Left Brachial artery] Blood Pressure [Right Brachial artery] O2 Saturation 98 03/31/19 03/31/19 03/31/19 02:58 02:59 03:00 Temperature 38.1 C H Heart Rate 91 91 96 Heart Rate [ 93 Monitoring electrodes] Respiratory 10 L 13 18 Rate Blood Pressure 80/70 L Blood Pressure [Left Brachial artery] Blood Pressure 84/58 L [Right Brachial artery] O2 Saturation 03/31/19 03/31/19 03/31/19 03:01 03:05 03:10 Temperature Heart Rate 93 94 89 Heart Rate [ Monitoring electrodes] Respiratory 19 17 19 Rate Blood Pressure 84/58 L Blood Pressure [Left Brachial artery] Blood Pressure [Right Brachial artery] O2 Saturation 03/31/19 03/31/19 03/31/19 03:15 03:16 03:20 Temperature Heart Rate 96 96 93 Heart Rate [ Monitoring electrodes] Respiratory 19 18 19 Rate Blood Pressure 95/66 Blood Pressure [Left Brachial artery] Blood Pressure [Right Brachial artery] O2 Saturation 03/31/19 03/31/19 03/31/19 03:25 03:30 03:31 Temperature Heart Rate 88 88 89 Heart Rate [ Monitoring electrodes] Respiratory 9 L 17 15 Rate Blood Pressure 90/59 L Blood Pressure [Left Brachial artery] Blood Pressure [Right Brachial artery] O2 Saturation 03/31/19 03/31/19 03/31/19 03:35 03:40 03:45 Temperature Heart Rate 87 91 90 Heart Rate [ Monitoring electrodes] Respiratory 16 15 Rate Blood Pressure Blood Pressure [Left Brachial artery] Blood Pressure [Right Brachial artery] O2 Saturation 03/31/19 03/31/19 03/31/19 03:46 03:50 03:55 Temperature Heart Rate 89 105 H 89 Heart Rate [ Monitoring electrodes] Respiratory 12 16 15 Rate Blood Pressure 99/69 Blood Pressure [Left Brachial artery] Blood Pressure [Right Brachial artery] O2 Saturation 03/31/19 03/31/19 03/31/19 04:00 04:01 04:05 Temperature Heart Rate 88 89 89 Heart Rate [ 84 Monitoring electrodes] Respiratory 11 L 10 L 28 H Rate Blood Pressure 95/63 Blood Pressure [Left Brachial artery] Blood Pressure 95/63 [Right Brachial artery] O2 Saturation 99 03/31/19 03/31/19 03/31/19 04:10 04:15 04:20 Temperature Heart Rate 86 86 85 Heart Rate [ Monitoring electrodes] Respiratory 0 L 9 L Rate Blood Pressure Blood Pressure [Left Brachial artery] Blood Pressure [Right Brachial artery] O2 Saturation 03/31/19 03/31/19 03/31/19 04:25 04:30 04:31 Temperature Heart Rate 88 84 87 Heart Rate [ Monitoring electrodes] Respiratory 20 21 16 Rate Blood Pressure 80/41 L Blood Pressure [Left Brachial artery] Blood Pressure [Right Brachial artery] O2 Saturation 03/31/19 03/31/19 03/31/19 04:35 04:40 04:45 Temperature Heart Rate 83 84 84 Heart Rate [ Monitoring electrodes] Respiratory 16 15 14 Rate Blood Pressure Blood Pressure [Left Brachial artery] Blood Pressure [Right Brachial artery] O2 Saturation 03/31/19 03/31/19 03/31/19 04:50 04:55 05:00 Temperature Heart Rate 85 85 84 Heart Rate [ Monitoring electrodes] Respiratory 16 15 15 Rate Blood Pressure Blood Pressure [Left Brachial artery] Blood Pressure [Right Brachial artery] O2 Saturation 03/31/19 03/31/19 03/31/19 05:01 05:05 05:09 Temperature Heart Rate 85 91 83 Heart Rate [ Monitoring electrodes] Respiratory 19 24 17 Rate Blood Pressure 72/47 L Blood Pressure [Left Brachial artery] Blood Pressure [Right Brachial artery] O2 Saturation 03/31/19 03/31/19 03/31/19 05:10 05:12 06:05 Temperature Heart Rate 88 Heart Rate [ 86 93 Monitoring electrodes] Respiratory 12 11 L 20 Rate Blood Pressure 106/61 Blood Pressure 106/61 115/66 [Left Brachial artery] Blood Pressure [Right Brachial artery] O2 Saturation 100 99 03/31/19 03/31/19 03/31/19 07:39 08:00 09:00 Temperature 38.8 C H Heart Rate Heart Rate [ 89 89 94 Monitoring electrodes] Respiratory 22 19 22 Rate Blood Pressure Blood Pressure 114/56 L 105/57 L 125/70 [Left Brachial artery] Blood Pressure [Right Brachial artery] O2 Saturation 97 93 91 L 03/31/19 03/31/19 10:34 11:00 Temperature 37.6 C H Heart Rate Heart Rate [ 93 93 Monitoring electrodes] Respiratory 19 19 Rate Blood Pressure Blood Pressure 118/64 95/45 L [Left Brachial artery] Blood Pressure [Right Brachial artery] O2 Saturation 100 98 Oxygen O2 Source Nasal cannula I&O (Last 24 Hrs): Intake and Output Totals x24h 03/29/19 03/30/19 03/31/19 23:59 23:59 23:59 Intake Total 7530.0 Output Total 1250 Balance 6280.0 General: Alert, Oriented x3 HEENT: Mucous membr. moist/pink, Other (Cheeks flushed) Neck: Supple Neuro: Alert, Non Focal Cardiovascular: Regular rate, No murmurs Respiratory: No respiratory distress, Breath sounds nml Abdomen: Soft, No tenderness, Other (Hyperactive bowel sounds) Extremities: No edema, Other (Cool extremities, good pulses) - Results Results: Laboratory Results WBC 3.8 x10^3/uL (4.8-10.8) L 03/31/19 05:55 RBC 5.53 10^6/uL (4.70-6.10) 03/31/19 05:55 Hgb 16.1 g/dL (14.0-18.0) 03/31/19 05:55 Hct 50.1 % (42.0-52.0) 03/31/19 05:55 MCV 90.6 fL (80.0-94.0) 03/31/19 05:55 MCH 29.1 pg (27.0-31.0) 03/31/19 05:55 MCHC 32.1 g/dL (32.0-36.0) 03/31/19 05:55 RDW 14.9 % (12.0-15.0) 03/31/19 05:55 Plt Count 116 10^3/uL (130-450) L 03/31/19 05:55 MPV 11.2 fL (7.4-11.4) 03/31/19 05:55 Neut # (Auto) Not Reportable 03/31/19 05:55 Lymph # (Auto) Not Reportable 03/31/19 05:55 [place] # (Auto) Not Reportable 03/31/19 05:55 Eos # (Auto) Not Reportable 03/31/19 05:55 Baso # (Auto) Not Reportable 03/31/19 05:55 Absolute Nucleated RBC Not Reportable 03/31/19 05:55 Total Counted 100 03/31/19 05:55 Band Neuts % (Manual) 10 % (0-10) 03/31/19 05:55 Abnorm Lymph % (Manual) 0 % 03/31/19 05:55 Nucleated RBC % Not Reportable 03/31/19 05:55 Neutrophils # (Manual) 2.6 10^3/uL (1.5-6.6) 03/31/19 05:55 Lymphocytes # (Manual) 1.0 10^3/uL (1.5-3.5) L 03/31/19 05:55 Monocytes # (Manual) 0.1 10^3/uL (0.0-1.0) 03/31/19 05:55 Eosinophils # (Manual) 0.1 10^3/uL (0-0.7) 03/31/19 05:55 Basophils # (Manual) 0.0 10^3/uL (0-0.1) 03/31/19 05:55 Differential Comment MANUAL DIFFERENTIAL 03/31/19 05:55 Platelet Estimate DECREASED (<130,000) (NORMAL) 03/31/19 05:55 RBC Morph Micro Appear NORMAL APPEARANCE (NORMAL) 03/31/19 05:55 VBG pH 7.314 (7.31-7.41) 03/31/19 08:47 Ionized Calcium 1.01 mmol/L (1.15-1.33) L 03/31/19 08:47 Sodium 139 mmol/L (135-145) 03/31/19 05:55 Potassium 3.8 mmol/L (3.5-5.0) 03/31/19 05:55 Chloride 113 mmol/L (101-111) H 03/31/19 05:55 Carbon Dioxide 17 mmol/L (21-32) L 03/31/19 05:55 Anion Gap 9.0 (6-13) 03/31/19 05:55 BUN 32 mg/dL (6-20) H 03/31/19 05:55 Creatinine 1.4 mg/dL (0.6-1.2) H 03/31/19 05:55 Estimated GFR (MDRD) 50 (>89) L 03/31/19 05:55 Glucose 80 mg/dL (70-100) 03/31/19 05:55 Lactic Acid 0.9 mmol/L (0.5-2.2) 03/31/19 08:47 Calcium 6.8 mg/dL (8.5-10.3) L 03/31/19 05:55 Phosphorus 2.6 mg/dL (2.5-4.6) 03/31/19 05:55 Magnesium 2.3 mg/dL (1.7-2.8) 03/31/19 05:55 Total Bilirubin 1.6 mg/dL (0.2-1.0) H 03/31/19 00:20 AST 26 IU/L (10-42) 03/31/19 00:20 ALT 18 IU/L (10-60) 03/31/19 00:20 Alkaline Phosphatase 41 IU/L (42-121) L 03/31/19 00:20 Total Creatine Kinase 103 IU/L (22-269) 03/31/19 00:20 Total Protein 5.6 g/dL (6.7-8.2) L 03/31/19 00:20 Albumin 3.3 g/dL (3.2-5.5) 03/31/19 00:20 Globulin 2.3 g/dL (2.1-4.2) 03/31/19 00:20 Albumin/Globulin Ratio 1.4 (1.0-2.2) 03/31/19 00:20 Lipase 26 U/L (22-51) 03/31/19 00:20 TSH 0.12 uIU/mL (0.34-5.60) L 03/31/19 05:55 Cortisol < 0.4 ug/dL 03/31/19 08:47 Urine Color YELLOW 03/31/19 00:53 Urine Clarity CLEAR (CLEAR) 03/31/19 00:53 Urine pH 5.0 PH (5.0-7.5) 03/31/19 00:53 Ur Specific [place] 1.020 (1.002-1.030) 03/31/19 00:53 Urine Protein NEGATIVE mg/dL (NEGATIVE) 03/31/19 00:53 Urine Glucose (UA) NEGATIVE mg/dL (NEGATIVE) 03/31/19 00:53 Urine Ketones NEGATIVE mg/dL (NEGATIVE) 03/31/19 00:53 Urine Occult Blood TRACE-INTA (NEGATIVE) 03/31/19 00:53 Urine Nitrite NEGATIVE (NEGATIVE) 03/31/19 00:53 Urine Bilirubin NEGATIVE (NEGATIVE) 03/31/19 00:53 Urine Urobilinogen 0.2 (NORMAL) E.U./dL (NORMAL) 03/31/19 00:53 Ur Leukocyte Esterase NEGATIVE (NEGATIVE) 03/31/19 00:53 Urine RBC Cancelled 03/31/19 00:53 Urine WBC Cancelled 03/31/19 00:53 Urine WBC Clumps Cancelled 03/31/19 00:53 Ur Epithelial Cells Cancelled 03/31/19 00:53 Ur Squamous Epith Cells Cancelled 03/31/19 00:53 Urine Crystals Cancelled 03/31/19 00:53 Amorphous Sediment Cancelled 03/31/19 00:53 Urine Bacteria Cancelled 03/31/19 00:53 Urine Casts Cancelled 03/31/19 00:53 Urine Starch Cancelled 03/31/19 00:53 Urine Mucus Cancelled 03/31/19 00:53 Urine Trichomonas Cancelled 03/31/19 00:53 Urine Yeast Cancelled 03/31/19 00:53 Urine Sperm Cancelled 03/31/19 00:53 Ur Oval Fat Bodies Cancelled 03/31/19 00:53 Ur Microscopic Review NOT INDICATED 03/31/19 00:53 Urine Culture Comments NOT INDICATED 03/31/19 00:53 Nasal Screen MRSA (PCR) NEGATIVE (NEGATIVE) 03/31/19 03:00 Stl C. diff Tox B Gene NEGATIVE (NEGATIVE) 03/31/19 03:20 Influenza A (Rapid) Negative (Negative) 03/31/19 00:20 Influenza B (Rapid) Negative (Negative) 03/31/19 00:20 Group A Strep Rapid Negative (Negative) 03/31/19 00:20 - Procedures Procedures: Procedures INSERT VAD RESERVOIR IN CHEST SUBCU/FASCIA, OPEN (02/09/18) INSERTION OF INFUSION DEV INTO SUP VENA CAVA, PERC APPROACH (02/09/18) Sepsis Event Note (H) - Evaluation Current Stage of Sepsis: Septic shock Possible source of Sepsis: positive: Unknown - Sepsis Criteria Sepsis Criteria: Suspected or Documented, Recorded Temperature greater than 38.3C or Less than 36C, Recorded Heart Rate greater than 90 bpm, Recorded Respiratory Rate greater than 20, WBC count greater than 12,000 or less than 4000, SBP drop more than 40mHg, MAP less than 65 mmHg, SBP less than 90 mmHg
[2019-03-31] MEDS: DEXTROSE 5%-LACTATED RINGERS 1,000 ML IV SCH ×2 (12:56→22:24)
[2019-03-31] MEDS ORDERED: CEFEPIME 2 GM in SODIUM CHLORIDE 0.9% MINIBAG 100 ML IV SCH (13:00)
[2019-03-31] MEDS: FLUDROCORTISONE 0.1 MG TABLET PO SCH (13:57)
[2019-03-31] MEDS: HYDROCORTISONE SUCCINATE 100 MG/2 ML VIAL IVP SCH ×2 (14:59→22:07)
[2019-03-31] MEDS ORDERED: VANCOMYCIN INJ 1.25 GM in SODIUM CHLORIDE 0.9% 250 ML IV SCH ×2 (18:00→19:00)
[2019-03-31] MEDS: VANCOMYCIN INJ 1.25 GM in SODIUM CHLORIDE 0.9% 250 ML IV SCH (18:12)
--- NOTE | 2019-03-31 18:55 | PHARMACY PROGRESS NOTE ---
- Therapy Status Vancomycin regimen day #: 1 Therapy status: Awaiting steady state Basis for treatment: Empirical Treatment indication: Severe Sepsis Trough goal: 15-20 Concurrent antibiotics: cefepime, metronidazole - KEILY Risk Risk level for Acute Kidney Injury: Moderate Acute Kidney Injury risk factors: Goal trough >15, Admission to ICU, Sepsis - Monitoring and Recommendation Clinical response to treatment: I&O Previous 24 hours 03/29/19 03/30/19 03/31/19 23:59 23:59 23:59 Intake Total 9151.11 Output Total 1860 Balance 7291.11 Lab Results 03/31/19 03/31/19 03/31/19 05:55 00:20 00:20 BUN 32 H 34 H 33 H Creatinine 1.4 H 1.4 H 1.4 H Estimated GFR (MDRD) 50 L 50 L 50 L Cultures 03/31/19 03:20 Stool Campylobacter Antigen Assay - Final 03/31/19 03:20 Stool Stool Culture - Pending Monitoring plan: Daily serum creatinine Next trough due prior to maintenance dose #: 2 Next trough due (date/time): 04/02 at 2330 Areas for additional monitoring: IV to PO when appropriate, Therapy de- escalation based on culture results, Acute Kidney Injury Pharmacy recommendation: Continue current regime (Will continue to monitor clinical parameters, trough levels and dose adjust accordingly)
[2019-03-31] MEDS: ZINC OXIDE 20% OINT 30 GM TUBE TOP PRN (22:29)
[2019-04-01] MEDS: SODIUM CHLORIDE FLUSH 0.9% 10 ML SYRINGE IVP SCH ×3 (02:56→18:22)
[2019-04-01] MEDS: metroNIDAZOLE 500 MG/100 ML 500 MG/100 ML BAG IV SCH ×3 (03:04→18:28)
[2019-04-01] MEDS: SODIUM CHLORIDE FLUSH 0.9% 10 ML SYRINGE IVP PRN (04:49)
[2019-04-01 05:19] LABS: BASOPHILS % (AUTO) 0.3 %; EOSINOPHILS % (AUTO) 0.3 %; HGB - HEMOGLOBIN 14.2 g/dL (14.0-18.0); LYMPHOCYTES % (AUTO) 8.6 %; MEAN CORPUSCULAR HEMOGLOBIN 29.1 pg (27.0-31.0); MEAN CORPUSCULAR HGB CONC 32.8 g/dL (32.0-36.0); MEAN CORPUSCULAR VOLUME 88.7 fL (80.0-94.0); MEAN PLATELET VOLUME 11.2 fL (7.4-11.4); MONOCYTES % (AUTO) 6.4 %; NEUTROPHILS % (AUTO) 83.4 %; PLT - PLATELET COUNT 92 10^3/uL (130-450); RED BLOOD COUNT 4.88 10^6/uL (4.70-6.10); RED CELL DISTRIBUTION WIDTH 14.9 % (12.0-15.0); WHITE BLOOD COUNT 3.1 x10^3/uL (4.8-10.8)
[2019-04-01 05:21] LABS: ABNORMAL LYMPHS % (MANUAL) 0 %
[2019-04-01 05:24] LABS: VBG PH 7.307 (7.31-7.41)
[2019-04-01 05:30] LABS: ALBUMIN 2.6 g/dL (3.2-5.5); CALCIUM 6.7 mg/dL (8.5-10.3); CREATININE 1.1 mg/dL (0.6-1.2); MAGNESIUM 2.2 mg/dL (1.7-2.8)
[2019-04-01] MEDS: SODIUM CHLORIDE 0.9% 1,000 ML IV SCH ×4 (05:49→21:29)
[2019-04-01] MEDS: HYDROCORTISONE SUCCINATE 100 MG/2 ML VIAL IVP SCH ×3 (05:50→21:27)
[2019-04-01 06:09] LABS: BAND NEUTROPHILS % (MANUAL) 24 %; LYMPHOCYTES # (MANUAL) 0.2 10^3/uL (1.5-3.5); LYMPHOCYTES % (MANUAL) 5 %; METAMYELOCYTES % (MANUAL) 1 %; MONOCYTES # (MANUAL) 0.2 10^3/uL (0.0-1.0); MYELOCYTES % (MANUAL) 1 %
[2019-04-01 06:10] LABS: DIFFERENTIAL COMMENT MANUAL DIFFERENTIAL; PLATELET ESTIMATE, MANUAL DECREASED (<130,000) (NORMAL); RBC MORPHOLOGY (MULTIPLE) NORMAL APPEARANCE (NORMAL)
[2019-04-01] MEDS: FLUDROCORTISONE 0.1 MG TABLET PO SCH (09:28)
--- NOTE | 2019-04-01 10:40 | PHARMACY PROGRESS NOTE ---
- Best Possible Medication History Admit Date and Time: 03/31/19211 Processed by: Pharmacy Medication History completed: In progress (pending patient interview) Secondary Source(s): Insurance records As the person ultimately responsible for medication therapy, providers are able to order a medication from an existing home medication list in [facility] via the "Reconcile Routine" prior to Confirmation of that medication by community support worker. Such practice is discouraged except when the physician, in their clinical judgment, deems that a medical need exists for a medication without regard to previous use.
[2019-04-01] MEDS: DEXTROSE 5%-LACTATED RINGERS 1,000 ML IV SCH ×2 (10:54→21:29)
[2019-04-01] MEDS: VANCOMYCIN INJ 1.25 GM in SODIUM CHLORIDE 0.9% 250 ML IV SCH (11:59)
[2019-04-01] MEDS ORDERED: CEFEPIME 2 GM in SODIUM CHLORIDE 0.9% MINIBAG 100 ML IV SCH ×3 (13:00)
[2019-04-01] MEDS: CEFEPIME 2 GM in SODIUM CHLORIDE 0.9% MINIBAG 100 ML IV SCH (13:55)
--- NOTE | 2019-04-01 18:03 | PROVIDER PROGRESS NOTE ---
Assessment/Plan - Problem List (1) Severe sepsis Assessment/Plan: BP improving Continue iv hydration and empiric antibx Await blood and stool cx results (2) Shock Assessment/Plan: Improving BP, is still "soft" Plan as above Remain in ICU today (3) Adrenal insufficiency Assessment/Plan: Continue 3days of higher dose Hydrocortisone and higher dose of Flurinef (4) Diarrhea Assessment/Plan: Slightly less frequent, but still a large volume Await cx results Continue iv hydration and correct electrolyte losses (5) N&V (nausea and vomiting) Assessment/Plan: Resolved Advance diet from clears to a BRAT diet, easily digestible (6) Acute kidney injury Assessment/Plan: Improving Follow BMP daily (7) Hypothyroidism Qualifiers: Hypothyroidism type: postoperative Qualified Code(s): E89.0 - Postprocedural hypothyroidism Assessment/Plan: Thyroid po med on hold due to high TSH, indicting excessive thyroid dose, and fluctuation was expected from getting chemo, per the (8) Metastatic melanoma Assessment/Plan: He was on immunosuppressants which may have added to this (viral gastroenteritis) infection - Current Meds Current Meds: Current Medications Generic Name Dose Route Start Last Admin Trade Name Freq PRN Reason Stop Dose Admin Acetaminophen 650 mg 03/31/19 12:49 03/31/19 20:10 Tylenol PO 650 mg Q4HR PRN Administration Pain or Fever > 38C (100.4F) Fludrocortisone Acetate 0.1 mg 03/31/19 13:00 04/01/19 09:28 Florinef PO 0.1 mg DAILY LUCHO Administration Hydrocortisone Sodium Succinate 30 mg 03/31/19 14:00 04/01/19 14:11 Solu-Cortef IVP 04/03/19 00:00 30 mg TID LUCHO Administration Sodium Chloride 1,000 mls @ 150 mls/hr 03/31/19 03:00 04/01/19 14:55 Normal Saline 0.9% IV 150 mls/hr .Q6H40M LUCHO Administration Metronidazole 500 mg in 100 mls @ 100 mls/hr 03/31/19 03:00 04/01/19 11:55 Flagyl 500 Mg/100 Ml IV Infused Q8H LUCHO Infusion Dextrose/Lactated Ringer's 1,000 mls @ 83.333 mls/hr 03/31/19 12:00 04/01/19 10:54 D5lr IV 83.333 mls/hr .Q12H LUCHO Administration Vancomycin HCl 1.25 gm/ Sodium 250 mls @ 166 mls/hr 03/31/19 18:00 04/01/19 13:45 Chloride IV Infused Q18H LUCHO Infusion Cefepime HCl 2 gm/ Sodium 100 mls @ 200 mls/hr 04/01/19 13:00 04/01/19 14:30 Chloride IV Infused Q24H LUCHO Infusion Multi-Ingredient Ointment 1 applic 03/31/19 18:40 03/31/19 22:29 Zinc Oxide TOP 1 applic PRN PRN Administration Skin Care Nystatin 1 applic 03/31/19 09:00 03/31/19 22:30 Nystop TOP 1 applic BID LUCHO Administration Sodium Chloride 10 ml 03/31/19 09:00 04/01/19 09:28 Normal Saline Flush 0.9% IVP 10 ml 0100,0900,1700 LUCHO Administration Sodium Chloride 10 ml 03/31/19 02:12 03/31/19 09:12 Normal Saline Flush 0.9% IVP 30 ml PRN PRN Administration NEEDED PER PROVIDER ORDERS Sodium Chloride 20 ml 04/01/19 04:48 04/01/19 04:49 Normal Saline Flush 0.9% IVP 20 ml PRN PRN Administration After Blood Draw - Lab Result Fish Bone Diagrams: 04/02/19 04:45 04/02/19 04:45 - Additional Planning My Orders: My Active Orders 03/31/19 18:40 Zinc Oxide 20% Oint [Zinc Oxide] 1 applic TOP PRN PRN 04/01/19 04:48 Sodium Chloride Flush 0.9% [Normal Saline Flush 0.9%] 20 ml IVP PRN PRN 04/01/19 Lunch DIET [Soft (Low Fiber) Diet] [DIET] 04/03/19 09:00 Hydrocortisone [Cortef] 10 mg PO BID Subjective - Subjective Patient Reports: Feeling Better Objective Vital Signs: Vital Signs - 24 hr 03/31/19 03/31/19 03/31/19 19:00 20:00 21:00 Temperature 37.4 C Heart Rate [ 85 85 83 Monitoring electrodes] Respiratory 26 H 17 29 H Rate Blood Pressure 94/67 94/48 L 90/41 L [Left Brachial artery] O2 Saturation 99 100 99 03/31/19 03/31/19 04/01/19 22:00 23:00 00:00 Temperature 36.7 C 36.7 C Heart Rate [ 76 75 73 Monitoring electrodes] Respiratory 16 16 19 Rate Blood Pressure 95/69 93/64 94/63 [Left Brachial artery] O2 Saturation 99 94 99 04/01/19 04/01/19 04/01/19 01:00 02:00 03:00 Temperature 36.5 C Heart Rate [ 67 64 71 Monitoring electrodes] Respiratory 10 L 12 16 Rate Blood Pressure 91/66 89/67 L 105/58 L [Left Brachial artery] O2 Saturation 97 99 100 04/01/19 04/01/19 04/01/19 04:00 05:00 06:00 Temperature 36.5 C Heart Rate [ 67 72 72 Monitoring electrodes] Respiratory 17 16 16 Rate Blood Pressure 90/63 85/66 L 91/64 [Left Brachial artery] O2 Saturation 100 100 97 04/01/19 04/01/19 04/01/19 07:00 08:00 09:00 Temperature 36.1 C L Heart Rate [ 66 74 70 Monitoring electrodes] Respiratory 16 24 17 Rate Blood Pressure 107/66 114/90 H 120/78 [Left Brachial artery] O2 Saturation 99 100 100 04/01/19 04/01/19 04/01/19 10:00 11:00 12:00 Temperature 36.5 C Heart Rate [ 72 71 77 Monitoring electrodes] Respiratory 17 14 18 Rate Blood Pressure 110/71 100/48 L 123/88 H [Left Brachial artery] O2 Saturation 100 99 100 04/01/19 04/01/19 04/01/19 13:00 14:00 15:00 Temperature Heart Rate [ 74 78 78 Monitoring electrodes] Respiratory 16 16 16 Rate Blood Pressure 146/93 H 96/63 107/85 H [Left Brachial artery] O2 Saturation 98 98 99 04/01/19 04/01/19 16:00 17:00 Temperature 36.4 C L Heart Rate [ 77 75 Monitoring electrodes] Respiratory 17 15 Rate Blood Pressure 114/73 102/74 [Left Brachial artery] O2 Saturation 100 100 Oxygen O2 Source Room air I&O (Last 24 Hrs): Intake and Output Totals x24h 03/30/19 03/31/19 04/01/19 23:59 23:59 23:59 Intake Total 13624.885 4580.0 Output Total 2816 2024 Balance 8247.885 2555.0 General: Alert HEENT: Mucous membr. moist/pink, Other (Face less ashen) Neck: Supple Neuro: Alert Cardiovascular: Regular rate, No murmurs Respiratory: No respiratory distress Abdomen: Soft Extremities: No edema - Results Results: Laboratory Results WBC 3.1 x10^3/uL (4.8-10.8) L 04/01/19 04:35 RBC 4.88 10^6/uL (4.70-6.10) 04/01/19 04:35 Hgb 14.2 g/dL (14.0-18.0) 04/01/19 04:35 Hct 43.3 % (42.0-52.0) 04/01/19 04:35 MCV 88.7 fL (80.0-94.0) 04/01/19 04:35 MCH 29.1 pg (27.0-31.0) 04/01/19 04:35 MCHC 32.8 g/dL (32.0-36.0) 04/01/19 04:35 RDW 14.9 % (12.0-15.0) 04/01/19 04:35 Plt Count 92 10^3/uL (130-450) L 04/01/19 04:35 MPV 11.2 fL (7.4-11.4) 04/01/19 04:35 Neut # (Auto) Not Reportable 04/01/19 04:35 Lymph # (Auto) Not Reportable 04/01/19 04:35 Petroleum # (Auto) Not Reportable 04/01/19 04:35 Eos # (Auto) Not Reportable 04/01/19 04:35 Baso # (Auto) Not Reportable 04/01/19 04:35 Absolute Nucleated RBC Not Reportable 04/01/19 04:35 Total Counted 100 04/01/19 04:35 Band Neuts % (Manual) 24 % (0-10) H 04/01/19 04:35 Abnorm Lymph % (Manual) 0 % 04/01/19 04:35 Metamyelocytes % 1 % (-0) H 04/01/19 04:35 Myelocytes % 1 % (-0) H 04/01/19 04:35 Nucleated RBC % Not Reportable 04/01/19 04:35 Neutrophils # (Manual) 2.7 10^3/uL (1.5-6.6) 04/01/19 04:35 Lymphocytes # (Manual) 0.2 10^3/uL (1.5-3.5) L 04/01/19 04:35 Monocytes # (Manual) 0.2 10^3/uL (0.0-1.0) 04/01/19 04:35 Eosinophils # (Manual) 0.0 10^3/uL (0-0.7) 04/01/19 04:35 Basophils # (Manual) 0.0 10^3/uL (0-0.1) 04/01/19 04:35 Differential Comment MANUAL DIFFERENTIAL 04/01/19 04:35 Platelet Estimate DECREASED (<130,000) (NORMAL) 04/01/19 04:35 RBC Morph Micro Appear NORMAL APPEARANCE (NORMAL) 04/01/19 04:35 VBG pH 7.307 (7.31-7.41) L 04/01/19 04:35 Ionized Calcium 1.03 mmol/L (1.15-1.33) L 04/01/19 04:35 Sodium 144 mmol/L (135-145) 04/01/19 04:35 Potassium 3.9 mmol/L (3.5-5.0) 04/01/19 04:35 Chloride 121 mmol/L (101-111) H* 04/01/19 04:35 Carbon Dioxide 18 mmol/L (21-32) L 04/01/19 04:35 Anion Gap 5.0 (6-13) L 04/01/19 04:35 BUN 20 mg/dL (6-20) 04/01/19 04:35 Creatinine 1.1 mg/dL (0.6-1.2) 04/01/19 04:35 Estimated GFR (MDRD) 66 (>89) L 04/01/19 04:35 Glucose 141 mg/dL (70-100) H 04/01/19 04:35 Lactic Acid 0.9 mmol/L (0.5-2.2) 03/31/19 08:47 Calcium 6.7 mg/dL (8.5-10.3) L 04/01/19 04:35 Phosphorus 3.0 mg/dL (2.5-4.6) 04/01/19 04:35 Magnesium 2.2 mg/dL (1.7-2.8) 04/01/19 04:35 Total Bilirubin 1.6 mg/dL (0.2-1.0) H 03/31/19 00:20 AST 26 IU/L (10-42) 03/31/19 00:20 ALT 18 IU/L (10-60) 03/31/19 00:20 Alkaline Phosphatase 41 IU/L (42-121) L 03/31/19 00:20 Total Creatine Kinase 103 IU/L (22-269) 03/31/19 00:20 Total Protein 5.6 g/dL (6.7-8.2) L 03/31/19 00:20 Albumin 2.6 g/dL (3.2-5.5) L 04/01/19 04:35 Globulin 2.3 g/dL (2.1-4.2) 03/31/19 00:20 Albumin/Globulin Ratio 1.4 (1.0-2.2) 03/31/19 00:20 Lipase 26 U/L (22-51) 03/31/19 00:20 TSH 0.12 uIU/mL (0.34-5.60) L 03/31/19 05:55 Cortisol < 0.4 ug/dL 03/31/19 08:47 Urine Color YELLOW 03/31/19 00:53 Urine Clarity CLEAR (CLEAR) 03/31/19 00:53 Urine pH 5.0 PH (5.0-7.5) 03/31/19 00:53 Ur Specific [place] 1.020 (1.002-1.030) 03/31/19 00:53 Urine Protein NEGATIVE mg/dL (NEGATIVE) 03/31/19 00:53 Urine Glucose (UA) NEGATIVE mg/dL (NEGATIVE) 03/31/19 00:53 Urine Ketones NEGATIVE mg/dL (NEGATIVE) 03/31/19 00:53 Urine Occult Blood TRACE-INTA (NEGATIVE) 03/31/19 00:53 Urine Nitrite NEGATIVE (NEGATIVE) 03/31/19 00:53 Urine Bilirubin NEGATIVE (NEGATIVE) 03/31/19 00:53 Urine Urobilinogen 0.2 (NORMAL) E.U./dL (NORMAL) 03/31/19 00:53 Ur Leukocyte Esterase NEGATIVE (NEGATIVE) 03/31/19 00:53 Urine RBC Cancelled 03/31/19 00:53 Urine WBC Cancelled 03/31/19 00:53 Urine WBC Clumps Cancelled 03/31/19 00:53 Ur Epithelial Cells Cancelled 03/31/19 00:53 Ur Squamous Epith Cells Cancelled 03/31/19 00:53 Urine Crystals Cancelled 03/31/19 00:53 Amorphous Sediment Cancelled 03/31/19 00:53 Urine Bacteria Cancelled 03/31/19 00:53 Urine Casts Cancelled 03/31/19 00:53 Urine Starch Cancelled 03/31/19 00:53 Urine Mucus Cancelled 03/31/19 00:53 Urine Trichomonas Cancelled 03/31/19 00:53 Urine Yeast Cancelled 03/31/19 00:53 Urine Sperm Cancelled 03/31/19 00:53 Ur Oval Fat Bodies Cancelled 03/31/19 00:53 Ur Microscopic Review NOT INDICATED 03/31/19 00:53 Urine Culture Comments NOT INDICATED 03/31/19 00:53 Nasal Screen MRSA (PCR) NEGATIVE (NEGATIVE) 03/31/19 03:00 Stl C. diff Tox B Gene NEGATIVE (NEGATIVE) 03/31/19 03:20 Influenza A (Rapid) Negative (Negative) 03/31/19 00:20 Influenza B (Rapid) Negative (Negative) 03/31/19 00:20 Group A Strep Rapid Negative (Negative) 03/31/19 00:20 - Procedures Procedures: Procedures INSERT VAD RESERVOIR IN CHEST SUBCU/FASCIA, OPEN (02/09/18) INSERTION OF INFUSION DEV INTO SUP VENA CAVA, PERC APPROACH (02/09/18) Sepsis Event Note (H) - Evaluation Current Stage of Sepsis: Septic shock Possible source of Sepsis: positive: Unknown - Sepsis Criteria Sepsis Criteria: Suspected or Documented, Recorded Temperature greater than 38.3C or Less than 36C, Recorded Heart Rate greater than 90 bpm, Recorded Respiratory Rate greater than 20, WBC count greater than 12,000 or less than 4000, SBP drop more than 40mHg, MAP less than 65 mmHg, SBP less than 90 mmHg
[2019-04-01] MEDS: NYSTATIN POWDER 15 GM TOP SCH (21:29)
[2019-04-02] MEDS: ZINC OXIDE 20% OINT 30 GM TUBE TOP PRN ×3 (00:08→13:46)
[2019-04-02] MEDS: SODIUM CHLORIDE FLUSH 0.9% 10 ML SYRINGE IVP SCH ×3 (02:45→18:17)
[2019-04-02] MEDS: metroNIDAZOLE 500 MG/100 ML 500 MG/100 ML BAG IV SCH ×3 (02:45→18:40)
[2019-04-02] MEDS: SODIUM CHLORIDE 0.9% 1,000 ML IV SCH ×4 (03:01→21:23)
[2019-04-02] MEDS: SODIUM CHLORIDE FLUSH 0.9% 10 ML SYRINGE IVP PRN (04:52)
[2019-04-02 04:55] LABS: VBG PH 7.382 (7.31-7.41)
[2019-04-02 04:57] LABS: BASOPHILS % (AUTO) 0.2 %; EOSINOPHILS % (AUTO) 0.5 %; HGB - HEMOGLOBIN 12.4 g/dL (14.0-18.0); LYMPHOCYTES # (AUTO) 0.5 10^3/uL (1.5-3.5); LYMPHOCYTES % (AUTO) 10.4 %; MEAN CORPUSCULAR HEMOGLOBIN 28.7 pg (27.0-31.0); MEAN CORPUSCULAR HGB CONC 32.5 g/dL (32.0-36.0); MEAN CORPUSCULAR VOLUME 88.4 fL (80.0-94.0); MEAN PLATELET VOLUME 10.7 fL (7.4-11.4); MONOCYTES # (AUTO) 0.3 10^3/uL (0.0-1.0); MONOCYTES % (AUTO) 6.1 %; NEUTROPHILS # (AUTO) 3.6 10^3/uL (1.5-6.6); NEUTROPHILS % (AUTO) 82.1 %; PLT - PLATELET COUNT 90 10^3/uL (130-450); RED BLOOD COUNT 4.32 10^6/uL (4.70-6.10); RED CELL DISTRIBUTION WIDTH 14.8 % (12.0-15.0); WHITE BLOOD COUNT 4.4 x10^3/uL (4.8-10.8)
[2019-04-02 05:07] LABS: ALBUMIN 2.5 g/dL (3.2-5.5); CALCIUM 6.6 mg/dL (8.5-10.3); PHOSPHORUS 1.5 mg/dL (2.5-4.6)
[2019-04-02] MEDS ORDERED: CALCIUM GLUCONATE 1,000 MG in SODIUM CHLORIDE 0.9% 50 ML IV ONE (05:24)
[2019-04-02] MEDS ORDERED: CALCIUM GLUCONATE 1000 MG/10 ML VIAL ONE (05:39)
[2019-04-02] MEDS: HYDROCORTISONE SUCCINATE 100 MG/2 ML VIAL IVP SCH ×3 (05:58→21:23)
[2019-04-02] MEDS ORDERED: POTASSIUM PHOSPHATE 21 MMOL in SODIUM CHLORIDE 0.9% 250 ML IV ONE (06:00)
[2019-04-02] MEDS ORDERED: POTASSIUM CHLORIDE 20 MEQ TABLET PO ONE (06:00)
[2019-04-02] MEDS: VANCOMYCIN INJ 1.25 GM in SODIUM CHLORIDE 0.9% 250 ML IV SCH (06:23)
[2019-04-02] MEDS ORDERED: LOPERAMIDE 2 MG CAPSULE PO PRN (08:51)
[2019-04-02] MEDS: FLUDROCORTISONE 0.1 MG TABLET PO SCH ×2 (08:57→10:41)
--- NOTE | 2019-04-02 11:47 | PHARMACY PROGRESS NOTE ---
- Therapy Status Vancomycin regimen day #: 3 (2G loading dose, followed by 1.25G q18h) Therapy status: Awaiting steady state Basis for treatment: Empirical Treatment indication: Sepsis Trough goal: 15-20 Concurrent antibiotics: Metronidazole 500mg IV q8h & Cefepime 2G IV q24h - KEILY Risk Risk level for Acute Kidney Injury: High Acute Kidney Injury risk factors: Baseline CrCl <50 (In this context, baseline meaning "at time of vancomycin initiation"), Baseline BUN:SCr >20:1 (In this context, baseline meaning "prior to vancomycin initiation"), Goal trough >15, Admission to ICU, Sepsis - Monitoring and Recommendation Clinical response to treatment: I&O Previous 24 hours 03/31/19 04/01/19 04/02/19 23:59 23:59 23:59 Intake Total 77768.885 7140.697 2208.263 Output Total 2816 2345 525 Balance 8247.885 4795.697 1683.263 Lab Results 04/02/19 04/01/19 03/31/19 04:45 04:35 05:55 BUN 21 H 20 32 H Creatinine 1.0 1.1 1.4 H Estimated GFR (MDRD) 73 L 66 L 50 L 03/31/19 03/31/19 00:20 00:20 BUN 34 H 33 H Creatinine 1.4 H 1.4 H Estimated GFR (MDRD) 50 L 50 L Cultures 03/31/19 00:20 Throat Group A Strep Throat Culture - Final MIXED OROPHARYNGEAL SUSAN PRESENT. NO BETA STREP PRESENT IN CULTURE. 03/31/19 00:00 Blood Blood Culture - Preliminary NO GROWTH AFTER 2 DAYS 03/31/19 00:25 Blood Blood Culture - Preliminary NO GROWTH AFTER 2 DAYS 03/31/19 03:20 Stool Campylobacter Antigen Assay - Final 03/31/19 03:20 Stool Stool Culture - Preliminary Monitoring plan: Daily serum creatinine, Draw trough early, Suggest ongoing fluid replacement Next trough due prior to maintenance dose #: 4 (steady state typically reached around the 5th or 6th maintenance dose) Next trough due (date/time): 04/02 @ 2330 Areas for additional monitoring: IV to PO when appropriate, Therapy de-es calation based on culture results, Acute Kidney Injury Pharmacy recommendation: Continue current regime (As hydration status and kidney function have continued to improve, suspect trough will be lower than desired. Will continue existing regimen to allow for trough draw this evening for more targeted dose adjustment.)
[2019-04-02] MEDS: POTASSIUM CHLORIDE 20 MEQ TABLET PO SCH (11:55)
[2019-04-02] MEDS: SACCHAROMYCES BOULARDII 250 MG CAPSULE PO SCH ×2 (11:55→16:32)
[2019-04-02] MEDS: NYSTATIN POWDER 15 GM TOP SCH ×2 (13:26→21:24)
--- NOTE | 2019-04-02 13:26 | PROVIDER PROGRESS NOTE ---
Assessment/Plan - Problem List (1) Diarrhea Assessment/Plan: Improving in consistency and frequency. No (+) cultures in blood or stool. Will move out of ICU today, as BP is >100's consistently now Will decrease iv hydration rate today, and assess with no iv hydration tomorrow. Diet advancing as tolerated (avoiding fiber and milk products) Will stop empiric iv Vanco, Flagyl and Cefepime after toay's doses. Will start Florastor and prn Imodium Start PT this afternoon (2) Adrenal insufficiency Assessment/Plan: He is on his Hydrocortisone at a 3x3 (3 time higher dose for 3 days) which will go back to his usual dose tomorrow He is on double of his Flurinef dose, for more salt retention, also temporarily. This was explained to the patient when he asked about this dose today (3) Hypothyroidism Qualifiers: Hypothyroidism type: postoperative Qualified Code(s): E89.0 - Postprocedural hypothyroidism Assessment/Plan: Will resume his po thyroid replacement, which was on hold due to very low TSH, suggesting excessive dose (fluctuations expectedly caused by chemo). (4) Metastatic melanoma Assessment/Plan: He was on immunosuppressants. (5) Severe sepsis Assessment/Plan: Resolved (6) Shock Assessment/Plan: Resolved (7) N&V (nausea and vomiting) Assessment/Plan: Resiolved Tolerating advancement of diet (8) Acute kidney injury Assessment/Plan: Resolved with 2+ days of iv hydration - Current Meds Current Meds: Current Medications Generic Name Dose Route Start Last Admin Trade Name Freq PRN Reason Stop Dose Admin Acetaminophen 650 mg 03/31/19 12:49 03/31/19 20:10 Tylenol PO 650 mg Q4HR PRN Administration Pain or Fever > 38C (100.4F) Fludrocortisone Acetate 0.1 mg 03/31/19 13:00 04/02/19 10:41 Florinef PO 0.1 mg DAILY LUCHO Administration Hydrocortisone Sodium Succinate 30 mg 03/31/19 14:00 04/02/19 05:58 Solu-Cortef IVP 04/03/19 00:00 30 mg TID LUCHO Administration Metronidazole 500 mg in 100 mls @ 100 mls/hr 03/31/19 03:00 04/02/19 12:02 Flagyl 500 Mg/100 Ml IV 04/02/19 23:55 Infused Q8H LUCHO Infusion Vancomycin HCl 1.25 gm/ Sodium 250 mls @ 166 mls/hr 03/31/19 18:00 04/02/19 08:05 Chloride IV 04/02/19 23:55 Infused Q18H LUCHO Infusion Cefepime HCl 2 gm/ Sodium 100 mls @ 200 mls/hr 04/01/19 13:00 04/01/19 14:30 Chloride IV 04/02/19 23:55 Infused Q24H LUCHO Infusion Multi-Ingredient Ointment 1 applic 03/31/19 18:40 04/02/19 10:43 Zinc Oxide TOP 1 applic PRN PRN Administration Skin Care Nystatin 1 applic 03/31/19 09:00 04/01/19 21:29 Nystop TOP 1 applic BID LUCHO Administration Potassium Chloride 20 meq 04/02/19 12:00 04/02/19 11:55 K-Dur PO 20 meq DAILYWM LUCHO Administration Saccharomyces Boulardii 250 mg 04/02/19 09:00 04/02/19 11:55 Florastor PO 250 mg BIDWM LUCHO Administration Sodium Chloride 10 ml 03/31/19 09:00 04/02/19 10:42 Normal Saline Flush 0.9% IVP Not Given 0100,0900,1700 LUCHO Sodium Chloride 10 ml 03/31/19 02:12 03/31/19 09:12 Normal Saline Flush 0.9% IVP 30 ml PRN PRN Administration NEEDED PER PROVIDER ORDERS Sodium Chloride 20 ml 04/01/19 04:48 04/02/19 04:52 Normal Saline Flush 0.9% IVP 20 ml PRN PRN Administration After Blood Draw - Lab Result Fish Bone Diagrams: 04/02/19 04:45 04/02/19 04:45 - Additional Planning My Orders: My Active Orders 04/02/19 Evaluate and Treat PT [PT] Routine 04/02/19 08:51 Thomas Discontinuation [RC] ONCE Loperamide [Imodium] 2 mg PO QID PRN 04/02/19 08:52 Telemetry-Discontinue [RC] .ONCE 04/02/19 09:00 Saccharomyces Boulardii [Florastor] 250 mg PO BIDWM 04/02/19 12:00 Potassium Chloride [K-Dur] 20 meq PO DAILYWM 04/02/19 12:20 Sodium Chloride 0.9% [Normal Saline 0.9%] 1,000 ml IV 60 mls/hr 04/02/19 23:30 VANCOMYCIN TROUGH [CHEM] Timed 04/02/19 Lunch DIET [Soft (Low Fiber) Diet] [DIET] 04/03/19 07:00 Levothyroxine [Synthroid] 100 mcg PO QDAC 04/03/19 09:00 Hydrocortisone [Cortef] 10 mg PO BID Subjective - Subjective Patient Reports: Feeling Better, Other (HAd poor sleep overnight due to "restless right leg and all the monitors and ivs") Nursing Reports: Other (Only 1 BM at 0830, was slightly formed) Objective Vital Signs: Vital Signs - 24 hr 04/01/19 04/01/19 04/01/19 14:00 15:00 16:00 Temperature 36.4 C L Heart Rate [ 78 78 77 Monitoring electrodes] Respiratory 16 16 17 Rate Blood Pressure 96/63 107/85 H 114/73 [Left Brachial artery] O2 Saturation 98 99 100 04/01/19 04/01/19 04/01/19 17:00 18:00 19:00 Temperature 36.6 C Heart Rate [ 75 76 77 Monitoring electrodes] Respiratory 15 16 13 Rate Blood Pressure 102/74 130/80 110/85 H [Left Brachial artery] O2 Saturation 100 100 100 04/01/19 04/01/19 04/01/19 20:00 21:00 22:00 Temperature Heart Rate [ 71 71 71 Monitoring electrodes] Respiratory 14 18 18 Rate Blood Pressure 116/75 94/62 110/72 [Left Brachial artery] O2 Saturation 100 96 100 04/01/19 04/01/19 04/02/19 23:00 23:18 00:00 Temperature 36.6 C Heart Rate [ 70 84 Monitoring electrodes] Respiratory 18 25 H Rate Blood Pressure 113/75 119/76 [Left Brachial artery] O2 Saturation 100 97 04/02/19 04/02/19 04/02/19 01:00 02:00 03:00 Temperature 36.8 C Heart Rate [ 74 79 74 Monitoring electrodes] Respiratory 14 19 20 Rate Blood Pressure 104/57 L 112/75 104/68 [Left Brachial artery] O2 Saturation 100 97 98 04/02/19 04/02/19 04/02/19 04:00 05:00 06:00 Temperature Heart Rate [ 74 77 81 Monitoring electrodes] Respiratory 15 18 16 Rate Blood Pressure 108/71 89/51 L 107/69 [Left Brachial artery] O2 Saturation 97 97 97 04/02/19 04/02/19 04/02/19 07:00 08:00 09:00 Temperature 36.5 C Heart Rate [ 79 78 90 Monitoring electrodes] Respiratory 22 24 23 Rate Blood Pressure 115/68 124/84 H 92/64 [Left Brachial artery] O2 Saturation 95 98 95 04/02/19 12:00 Temperature 37.0 C Heart Rate [ 90 Monitoring electrodes] Respiratory 24 Rate Blood Pressure [Left Brachial artery] O2 Saturation 95 Oxygen O2 Source Room air I&O (Last 24 Hrs): Intake and Output Totals x24h 03/31/19 04/01/19 04/02/19 23:59 23:59 23:59 Intake Total 00006.885 7140.697 2308.263 Output Total 2816 2345 565 Balance 8247.885 4795.697 1743.263 General: Alert, Oriented x3 HEENT: Mucous membr. moist/pink, Other (Face flushed) Neck: Supple Neuro: Non Focal Cardiovascular: Regular rate, No murmurs Respiratory: No respiratory distress Abdomen: Normal bowel sounds, Soft, Other (Mildly distended, gassy) Extremities: No edema - Results Results: Laboratory Results WBC 4.4 x10^3/uL (4.8-10.8) L 04/02/19 04:45 RBC 4.32 10^6/uL (4.70-6.10) L 04/02/19 04:45 Hgb 12.4 g/dL (14.0-18.0) L 04/02/19 04:45 Hct 38.2 % (42.0-52.0) L 04/02/19 04:45 MCV 88.4 fL (80.0-94.0) 04/02/19 04:45 MCH 28.7 pg (27.0-31.0) 04/02/19 04:45 MCHC 32.5 g/dL (32.0-36.0) 04/02/19 04:45 RDW 14.8 % (12.0-15.0) 04/02/19 04:45 Plt Count 90 10^3/uL (130-450) L 04/02/19 04:45 MPV 10.7 fL (7.4-11.4) 04/02/19 04:45 Neut # (Auto) 3.6 10^3/uL (1.5-6.6) 04/02/19 04:45 Lymph # (Auto) 0.5 10^3/uL (1.5-3.5) L 04/02/19 04:45 [place] # (Auto) 0.3 10^3/uL (0.0-1.0) 04/02/19 04:45 Eos # (Auto) 0.0 10^3/uL (0.0-0.7) 04/02/19 04:45 Baso # (Auto) 0.0 10^3/uL (0.0-0.1) 04/02/19 04:45 Absolute Nucleated RBC 0.00 x10^3/uL 04/02/19 04:45 Total Counted 100 04/01/19 04:35 Band Neuts % (Manual) 24 % (0-10) H 04/01/19 04:35 Abnorm Lymph % (Manual) 0 % 04/01/19 04:35 Metamyelocytes % 1 % (-0) H 04/01/19 04:35 Myelocytes % 1 % (-0) H 04/01/19 04:35 Nucleated RBC % 0.0 /100WBC 04/02/19 04:45 Neutrophils # (Manual) 2.7 10^3/uL (1.5-6.6) 04/01/19 04:35 Lymphocytes # (Manual) 0.2 10^3/uL (1.5-3.5) L 04/01/19 04:35 Monocytes # (Manual) 0.2 10^3/uL (0.0-1.0) 04/01/19 04:35 Eosinophils # (Manual) 0.0 10^3/uL (0-0.7) 04/01/19 04:35 Basophils # (Manual) 0.0 10^3/uL (0-0.1) 04/01/19 04:35 Differential Comment MANUAL DIFFERENTIAL 04/01/19 04:35 Platelet Estimate DECREASED (<130,000) (NORMAL) 04/01/19 04:35 RBC Morph Micro Appear NORMAL APPEARANCE (NORMAL) 04/01/19 04:35 VBG pH 7.382 (7.31-7.41) 04/02/19 04:45 Ionized Calcium 1.02 mmol/L (1.15-1.33) L 04/02/19 04:45 Sodium 143 mmol/L (135-145) 04/02/19 04:45 Potassium 3.3 mmol/L (3.5-5.0) L 04/02/19 04:45 Chloride 118 mmol/L (101-111) H 04/02/19 04:45 Carbon Dioxide 19 mmol/L (21-32) L 04/02/19 04:45 Anion Gap 6.0 (6-13) 04/02/19 04:45 BUN 21 mg/dL (6-20) H 04/02/19 04:45 Creatinine 1.0 mg/dL (0.6-1.2) 04/02/19 04:45 Estimated GFR (MDRD) 73 (>89) L 04/02/19 04:45 Glucose 109 mg/dL (70-100) H 04/02/19 04:45 Lactic Acid 0.9 mmol/L (0.5-2.2) 03/31/19 08:47 Calcium 6.6 mg/dL (8.5-10.3) L 04/02/19 04:45 Phosphorus 1.5 mg/dL (2.5-4.6) L 04/02/19 04:45 Magnesium 2.0 mg/dL (1.7-2.8) 04/02/19 04:45 Total Bilirubin 1.6 mg/dL (0.2-1.0) H 03/31/19 00:20 AST 26 IU/L (10-42) 03/31/19 00:20 ALT 18 IU/L (10-60) 03/31/19 00:20 Alkaline Phosphatase 41 IU/L (42-121) L 03/31/19 00:20 Total Creatine Kinase 103 IU/L (22-269) 03/31/19 00:20 Total Protein 5.6 g/dL (6.7-8.2) L 03/31/19 00:20 Albumin 2.5 g/dL (3.2-5.5) L 04/02/19 04:45 Globulin 2.3 g/dL (2.1-4.2) 03/31/19 00:20 Albumin/Globulin Ratio 1.4 (1.0-2.2) 03/31/19 00:20 Lipase 26 U/L (22-51) 03/31/19 00:20 TSH 0.12 uIU/mL (0.34-5.60) L 03/31/19 05:55 Cortisol < 0.4 ug/dL 03/31/19 08:47 Urine Color YELLOW 03/31/19 00:53 Urine Clarity CLEAR (CLEAR) 03/31/19 00:53 Urine pH 5.0 PH (5.0-7.5) 03/31/19 00:53 Ur Specific [place] 1.020 (1.002-1.030) 03/31/19 00:53 Urine Protein NEGATIVE mg/dL (NEGATIVE) 03/31/19 00:53 Urine Glucose (UA) NEGATIVE mg/dL (NEGATIVE) 03/31/19 00:53 Urine Ketones NEGATIVE mg/dL (NEGATIVE) 03/31/19 00:53 Urine Occult Blood TRACE-INTA (NEGATIVE) 03/31/19 00:53 Urine Nitrite NEGATIVE (NEGATIVE) 03/31/19 00:53 Urine Bilirubin NEGATIVE (NEGATIVE) 03/31/19 00:53 Urine Urobilinogen 0.2 (NORMAL) E.U./dL (NORMAL) 03/31/19 00:53 Ur Leukocyte Esterase NEGATIVE (NEGATIVE) 03/31/19 00:53 Urine RBC Cancelled 03/31/19 00:53 Urine WBC Cancelled 03/31/19 00:53 Urine WBC Clumps Cancelled 03/31/19 00:53 Ur Epithelial Cells Cancelled 03/31/19 00:53 Ur Squamous Epith Cells Cancelled 03/31/19 00:53 Urine Crystals Cancelled 03/31/19 00:53 Amorphous Sediment Cancelled 03/31/19 00:53 Urine Bacteria Cancelled 03/31/19 00:53 Urine Casts Cancelled 03/31/19 00:53 Urine Starch Cancelled 03/31/19 00:53 Urine Mucus Cancelled 03/31/19 00:53 Urine Trichomonas Cancelled 03/31/19 00:53 Urine Yeast Cancelled 03/31/19 00:53 Urine Sperm Cancelled 03/31/19 00:53 Ur Oval Fat Bodies Cancelled 03/31/19 00:53 Ur Microscopic Review NOT INDICATED 03/31/19 00:53 Urine Culture Comments NOT INDICATED 03/31/19 00:53 Nasal Screen MRSA (PCR) NEGATIVE (NEGATIVE) 03/31/19 03:00 Stl C. diff Tox B Gene NEGATIVE (NEGATIVE) 03/31/19 03:20 Influenza A (Rapid) Negative (Negative) 03/31/19 00:20 Influenza B (Rapid) Negative (Negative) 03/31/19 00:20 Group A Strep Rapid Negative (Negative) 03/31/19 00:20 - Procedures Procedures: Procedures INSERT VAD RESERVOIR IN CHEST SUBCU/FASCIA, OPEN (02/09/18) INSERTION OF INFUSION DEV INTO SUP VENA CAVA, PERC APPROACH (02/09/18) Sepsis Event Note (H) - Evaluation Current Stage of Sepsis: Septic shock Possible source of Sepsis: positive: Unknown - Sepsis Criteria Sepsis Criteria: Suspected or Documented, Recorded Temperature greater than 38.3C or Less than 36C, Recorded Heart Rate greater than 90 bpm, Recorded R espiratory Rate greater than 20, WBC count greater than 12,000 or less than 4000, SBP drop more than 40mHg, MAP less than 65 mmHg, SBP less than 90 mmHg
[2019-04-02] MEDS: CEFEPIME 2 GM in SODIUM CHLORIDE 0.9% MINIBAG 100 ML IV SCH (13:48)
[2019-04-03] MEDS: SODIUM CHLORIDE FLUSH 0.9% 10 ML SYRINGE IVP SCH ×2 (05:57→08:43)
[2019-04-03] MEDS: SODIUM CHLORIDE FLUSH 0.9% 10 ML SYRINGE IVP PRN ×3 (06:12→08:54)
[2019-04-03 06:25] LABS: VBG PH 7.33 (7.31-7.41)
[2019-04-03 06:33] LABS: BASOPHILS % (AUTO) 0.2 %; EOSINOPHILS % (AUTO) 0.5 %; LYMPHOCYTES # (AUTO) 0.6 10^3/uL (1.5-3.5); LYMPHOCYTES % (AUTO) 13.6 %; MEAN CORPUSCULAR HEMOGLOBIN 29.3 pg (27.0-31.0); MEAN CORPUSCULAR HGB CONC 32.6 g/dL (32.0-36.0); MEAN CORPUSCULAR VOLUME 89.6 fL (80.0-94.0); MEAN PLATELET VOLUME 11.7 fL (7.4-11.4); MONOCYTES # (AUTO) 0.4 10^3/uL (0.0-1.0); MONOCYTES % (AUTO) 8.8 %; NEUTROPHILS # (AUTO) 3.1 10^3/uL (1.5-6.6); NEUTROPHILS % (AUTO) 76.2 %; PLT - PLATELET COUNT 70 10^3/uL (130-450); RED BLOOD COUNT 3.76 10^6/uL (4.70-6.10); RED CELL DISTRIBUTION WIDTH 15.1 % (12.0-15.0); WHITE BLOOD COUNT 4.1 x10^3/uL (4.8-10.8)
[2019-04-03 06:36] LABS: ALBUMIN 2.5 g/dL (3.2-5.5); CALCIUM 7.1 mg/dL (8.5-10.3)
[2019-04-03] MEDS ORDERED: LEVOTHYROXINE 100 MCG TABLET PO SCH (07:00)
--- NOTE | 2019-04-03 08:09 | Discharge Plan ---
Discharge Plan Problem Reviewed?: Yes Disposition: Home, Self Care Condition: Stable Prescriptions: Saccharomyces Boulardii [Daily Probiotic] 250 mg PO BID #14 capsule Diet: Soft Activity Restrictions: Activity as Tolerated Shower Restrictions: No Driving Restrictions: No Health Concerns: You were admitted in shock to the ICU, from diarrhea and severe dehydration. You were treated empirically for a potential bacterial cause of the diarrhea, but no bacteria grew out in the cultures in the lab, and therefore you probably had a viral gastroenteritis. It has resolved but your are still somewhat dehydrated. Plan of Treatment: Stay well hydrated. Advance your diet from soft to regular at your own pace. Avoid milk and milk products, because they are harder to handle by the gut. Resume your usual pre-hospital medications. A new prescription for a probiotic tablet has been ordered, and electronically sent to your pharmacy. Light activity is recommended until you feel stronger. Care Goals: Stabilization and improvement is the goal. Assessment: The patient understands and is agreement. Additional Instructions or Follow Up instructions: If you have new or worsening symptoms, contact your PCP or Oncologist or come to the ER. No Smoking: If you smoke, Please STOP! Call for help. Follow-up with: Joanna Shepherd MD [Primary Care Provider] -
[2019-04-03 08:19] VITALS: BP 109/65
--- NOTE | 2019-04-03 08:38 | DISCHARGE SUMMARY ---
Discharge Summary Admit Date: 03/31/19 Discharge Date: 04/03/19 Discharging Provider: Dr Mare Albrecht Code Status: Attempt Resuscitation Condition at Discharge: Stable Discharge Disposition: 01 Home, Self Care - DIAGNOSES Admission Diagnoses: (1) Septic shock (2) N/V/Diarrhea (3) Hypothyroidism (4) Metastatic melanoma (5) Acute kidney injury Discharge Diagnoses with Status of Each Condition: See below - HPI History of Present Illness: From the admission H&P of Dr Sg Dlol: Patient is a 73 y/o male who presented to the ED with complain of n/v/d and fever. His reports that he had 4 episodes of completely liquid stool that she witnessed today but it may have been more. He has metastatic melanoma and is on immunosuppresants (nivolumab and ipilimumab) every [address] Kebede at the [facility]. His last visit was yesterday. It was decided that he would not receive any treatment because he appeared weak. Instead he was given IV hydration. When he went home he had the episodes of diarrhea. His found him where he had slumped to the floor and couldn't get up. He seemed confused at the time and felt warm. In the ED he was found to have a temperature of 39C. He had dry/chapped lips. He had a WBC of 3.4. Blood cultures were drawn. He was given IV fluids and started on antibiotics. In the course of treatment his blood pressure dropped to a SBP of 71. This did not improve despite 3L of IV fluids. The patient also suddenly became very flushed while receiving treatment. As a result he was admitted to the ICU. - HOSPITAL COURSE Hospital Course: (1) Severe sepsis He was tachycardic, hypotensive, had a low WBC and fever of 39C and the source was felt to be intestinal. He was so obtunded that he could not remember his day of admission, when questioned later. A CT abdomen/pelvis was done that showed no acute pathology. He was treated with empiric iv Flagyl, Zosyn and Vanco. The blood cultures remained negative. The stool cultures had no bacterial growth and were negative for C. difficile. He was presumed to have viral gastroenteritis which took its course and he was better after 3-days. (2) Shock His blood pressure remained below 99 systolic for 2 days. Pressors were never started however. (3) Adrenal insufficiency When his full medication list was reconciled, it was found that he was on Hydrocortisone bid and Fludrocortisone daily, not just before chemotherapy and the confirmed that he has a diagnosis of adrenal insufficiency. We started 3 days of higher dose Hydrocortisone and higher dose of Flurinef. At the time of discharge, his previous doses were to be restarted (4) Diarrhea He had 2 days large volumes of painless diarrhea. After cultures were all negative, Imodium was started and these became less frequent. His IV hydration was slowly tapered to off, when he could tolerate liquids and a BRAT diet. He got empiric IV antibiotics. These were stopped on the day of discharge and he was sent home with new Florastor probiotic prescription. He had Imodium to use prn at home. (5) N&V (nausea and vomiting) This resolved by the second day with anti-emetics. We advanced his diet from clears to a BRAT easily digestible diet. He was sent home on a soft diet with advice to advance it as he tolerated. (6) Acute kidney injury Improved with iv hydration from BUN/creat of 33/1.4 to 24/1.0 at discharge. (7) Hypothyroidism Thyroid po med on hold due to high TSH, indicting excessive thyroid dose, and fluctuation was expected from getting chemo, per the . It was resumed at discharge. (8) Metastatic melanoma He was on immunosuppressants which may have added to this (presumed viral gastroenteritis) infection - ALLERGIES Allergies/Adverse Reactions: Allergies Allergy/AdvReac Type Severity Reaction Status Date / Time nivolumab [From Opdivo] AdvReac Intermediate LOWER Verified 03/30/19 09:38 EXTREMITY PAIN morphine AdvReac Itching Verified 03/30/19 09:38 - MEDICATIONS Home Medications: Ambulatory Orders Medication Instructions Recorded Confirmed RX: Levothyroxine Sodium [Levoxyl] 88 mcg PO DAILY 08/28/15 04/02/19 RX: Potassium Chloride 20 meq ORAL BID 04/21/18 04/02/19 RX: Fludrocortisone [Florinef] 0.05 mg PO DAILY 07/22/18 04/02/19 RX: Testosterone [Androderm] 4 mg TD DAILY 10/13/18 04/02/19 RX: Hydrocortisone 10 mg PO DAILY 04/01/19 04/02/19 RX: Saccharomyces Boulardii [Daily 250 mg PO BID #14 capsule 04/03/19 Probiotic] - PHYSICAL EXAM AT DISCHARGE General Appearance: positive: No acute distress, Alert Eyes Bilateral: positive: Normal inspection ENT: positive: ENT inspection nml, No signs of dehydration, Other (Cheeks flushed) Neck: positive: Nml inspection, No JVD Respiratory: positive: No respiratory distress, Breath sounds nml Cardiovascular: positive: Regular rate & rhythm, No murmur Abdomen: positive: Non-tender, No distention Extremities: positive: Non-tender, No pedal edema Neurologic/Psychiatric: positive: Oriented x3, Other (Grossly intact) - LABS Result Diagrams: 04/03/19 06:10 04/03/19 06:10 - DIAGNOSTIC IMAGING Diagnostic Imaging Results: Final report reviewed - SEPSIS Current Stage of Sepsis: Septic shock Possible source of Sepsis: Unknown Sepsis Criteria: Suspected or Documented, Recorded Temperature greater than 38.3C or Less than 36C, Recorded Heart Rate greater than 90 bpm, Recorded Respiratory Rate greater than 20, WBC count greater than 12,000 or less than 4000, SBP drop more than 40mHg, MAP less than 65 mmHg, SBP less than 90 mmHg - FOLLOW UP Follow Up: See PCP and Oncologist in 1-2 weeks. - TIME SPENT Time Spent in Discharge (Minutes): 60
[2019-04-03] MEDS: SACCHAROMYCES BOULARDII 250 MG CAPSULE PO SCH (08:53)
[2019-04-03] MEDS: POTASSIUM CHLORIDE 20 MEQ TABLET PO SCH (08:53)
[2019-04-03] MEDS: FLUDROCORTISONE 0.1 MG TABLET PO SCH (08:54)
[2019-04-03] MEDS ORDERED: HYDROCORTISONE 10 MG TABLET PO SCH (09:00)
[2019-04-03] MEDS: NYSTATIN POWDER 15 GM TOP SCH (09:01)
== END 2019-04-03 09:30 | disposition home or self-care (01) | DRG 871 ==
LOC: EDUNIT# → ED 23:45 → ICU 03-31 02:12 → MS3 04-02 14:36
PROVIDERS: ADMIT Internal Medicine; ATTEND Internal Medicine
DX: I95.9 Hypotension, unspecified (principal); R50.9 Fever, unspecified; R11.2 Nausea with vomiting, unspecified; R19.7 Diarrhea, unspecified; R53.1 Weakness; A41.9 Sepsis, unspecified organism; R65.21 Severe sepsis with septic shock; R57.1 Hypovolemic shock; K21.9 Gastro-esophageal reflux disease without esophagitis; N17.9 Acute kidney failure, unspecified; E27.40 Unspecified adrenocortical insufficiency; C79.9 Secondary malignant neoplasm of unspecified site; A08.4 Viral intestinal infection, unspecified; E89.0 Postprocedural hypothyroidism; R23.2 Flushing; T38.0X6A Underdosing of glucocorticoids and synthetic analogues, initial encounter; Z91.138 Patient's unintentional underdosing of medication regimen for other reason; Y92.009 Unspecified place in unspecified non-institutional (private) residence as the place of occurrence of the external cause; C43.9 Malignant melanoma of skin, unspecified; I10 Essential (primary) hypertension; Z79.899 Other long term (current) drug therapy; Z79.52 Long term (current) use of systemic steroids; Z95.828 Presence of other vascular implants and grafts; Z85.850 Personal history of malignant neoplasm of thyroid
CPT/HCPCS: 36415; 51701; 71046; 71260; 74177; 80048; 80053; 80202; 81001; 81003; 82040; 82330; 82533; 82550; 83605; 83690; 83735; 84100; 84443; 85025; 87040; 87045; 87046; 87070; 87086; 87150; 87275; 87276; 87430; 87493; 93005; 96361; 96365; 96367; 99284

== ENCOUNTER 2019-04-26 12:13 | Outpatient (CLI) | payer MEDICARE ==
[2019-04-26] MEDS ORDERED: GADOBUTROL 10 MMOL/10 ML VIAL ONE (12:42)
[2019-04-26] MEDS ORDERED: GADOBUTROL 10 MMOL/10 ML VIAL IVP ONE (13:21)
--- NOTE | 2019-04-26 13:49 | MRI Report ---
Reason: MELANOMA Procedure Date: 04/26/2019 Accession Number: [id number] / [id number] Procedure: MRI - Brain W/WO CPT Code: Final Report FULL RESULT: EXAM: MRI BRAIN WITHOUT AND WITH CONTRAST EXAM DATE: 04/26/2019 01:17 PM. CLINICAL HISTORY: 73-year-old man with history of melanoma. COMPARISON: BRAIN W/WO 12/31/2018 2:47 PM. TECHNIQUE: Multiplanar, multisequence T1-weighted and fluid-sensitive MR sequences of the brain were performed before and after administration of intravenous contrast. Sequences optimized for routine evaluation. Other: None. IV Contrast: 9 cc Gadavist. FINDINGS: Parenchyma: The following enhancing lesion is again demonstrated: (Image corresponds to series 1002) 1. Left inferior basal ganglia, image 60. 6 mm, unchanged. There is corresponding hemosiderin staining and local volume loss. No new enhancing lesions are demonstrated. For additional foci of hemosiderin staining without enhancement are present in the right occipital, parietal, and frontal lobes, unchanged. No evidence of acute infarct. Pituitary: Unremarkable. Ventricles and Extra-axial Spaces: Ventricles are symmetric and normal in size for age. Extra-axial spaces are unremarkable. No abnormal enhancement. Orbits: Unremarkable. Sinuses: Mild mucosal thickening is present along the floors of the maxillary sinuses bilaterally. Mastoid air cells are clear. Major Vascular Flow Voids: Intact. Dural Venous Sinuses and Major Central Veins: Patent on post-contrast images. IMPRESSION: 1. Enhancing lesion with hemosiderin staining in the inferior left basal ganglia, consistent with metastasis and stable compared to the 12/31/2018 exam. No new lesions are identified. 2. For additional foci of hemosiderin staining without enhancement in the right cerebral hemisphere, unchanged. Tiny may represent treated metastases or remote microhemorrhages. RADIA
== END 2019-04-26 12:14 | disposition home or self-care (01) ==
LOC: DI 12:13
PROVIDERS: ATTEND Internal Medicine Hematology & Oncology
DX: G93.9 Disorder of brain, unspecified (principal); C43.8 Malignant melanoma of overlapping sites of skin
CPT/HCPCS: 70553; A9585

== ENCOUNTER 2019-06-07 06:09 | Day surgery (SDC) | payer MEDICARE ==
[2019-06-07] MEDS ORDERED: MIDAZOLAM 2 MG/2 ML VIAL IVP ONE (06:10)
[2019-06-07] MEDS ORDERED: fentaNYL 100 MCG/2 ML VIAL IVP ONE (06:10)
[2019-06-07] MEDS ORDERED: PROPOFOL 200 MG/20 ML VIAL IVP ONE (06:10)
[2019-06-07] MEDS ORDERED: LACTATED RINGERS 1,000 ML IV ONE ×2 (06:19→09:21)
[2019-06-07] MEDS ORDERED: CEFAZOLIN SODIUM IN 0.9 % NACL 2 GM/100 ML BAG IV ONE (06:20)
--- NOTE | 2019-06-07 07:22 | ANESTHESIA ---
Pre-Anesthesia VS, & Labs - Diagnosis faulty port - Procedure portacath removal, replacement of same Vital Signs: Temp Pulse Resp BP Pulse Ox 36 C L 74 18 139/86 H 97 06/07/19 06:28 06/07/19 06:28 06/07/19 06:28 06/07/19 06:28 06/07/19 06:28 Height 5 ft 8 in Weight (kg) 96 kg Body Mass Index 30.5 - NPO >8 hours Home Medications and Allergies Levothyroxine Sodium [Levoxyl] 88 mcg PO DAILY 08/28/15 Potassium Chloride 20 meq ORAL BID 04/21/18 Fludrocortisone [Florinef] 0.05 mg PO DAILY 07/22/18 Hydrocortisone 10 mg PO DAILY 04/01/19 Allergies/Adverse Reactions: Allergies Allergy/AdvReac Type Severity Reaction Status Date / Time nivolumab [From Opdivo] AdvReac Intermediate LOWER Verified 05/18/19 10:47 EXTREMITY PAIN morphine AdvReac Itching Verified 05/18/19 10:47 Anes History & Medical History - Anesthetic History Anesthesia Complications: reports: No previous complications Family history of Anesthesia Complications: Denies Family history of Malignant Hyperthermia: Denies - Medical History Cardiovascular: reports: Hypertension, Murmur Pulmonary: reports: None Gastrointestinal: reports: None Urinary: reports: Kidney stones Neuro: reports: None Musculoskeletal: reports: Osteoarthritis Endocrine/Autoimmune: reports: HyPOthyroidism Blood Disorders: reports: None Skin: reports: Other Smoking Status: Never smoker - Surgical History General: Colonoscopy, EGD, Other Eyes Ears Nose Throat (EENT): Tonsil/Adenoidectomy, Other Cardiothoracic: Other (portacath 2017) Exam General: Alert, Oriented x3, Cooperative Dental: WNL Mouth Openin Fingerbreadth Neck Mobility: Normal Mallampati classification: II Thyromental Distance: greater than 6 cm Respiratory: Lungs clear, Normal breath sounds, No respiratory distress Cardiovascular: Regular rate Neurological: Normal speech Mental/Cognitive Status: Alert/Oriented X3, Normal for patient Cognitive Status: Within normal limits Plan Anesthesia Type: General (backup), MAC Consent for Procedure(s) Verified and Reviewed: Yes Code Status: Attempt Resuscitation ASA classification: 3-Severe systemic disease Is this case an emergency?: No
[2019-06-07] MEDS ORDERED: BUPIVACAINE 0.5% PF 30 ML VIAL SUBQ ONE ×2 (08:59)
[2019-06-07] MEDS ORDERED: LIDOCAINE 1%-EPI 1:100000 30 ML MDV SUBQ ONE ×2 (08:59)
--- NOTE | 2019-06-07 09:17 | OPERATIVE REPORT ---
Operative Report - General Procedure Date: 06/07/19 Planned Procedure: Removal and replacement of right power port Pre-Op Diagnosis: Leaking power port Procedure Performed: Power port removed and new port placed over a J wire. Post Op Diagnosis: Same - Procedure Note Primary Surgeon: Patt Anesthesia Provider: SELENA Urbano Anesthesia Technique: Local, MAC Pathology: None Estimated Blood Loss (mL): 5 Findings: New port functions well and without evidence of leak Complications: None apparent - Other Other Information/Narrative: After obtaining informed consent, the patient is brought to the operating room and placed in the supine position on the. Following successful induction of sedation with monitored anesthesia care, appropriate padding of all bony prominences, and placement of appropriate monitors, the bilateral chest and neck were prepped and draped in the standard surgical fashion. A timeout was held per scope protocol. All elements of the surgical safety checklist were followed before, during, and after the procedure. Following infiltration with local anesthetic to create a field block, an incision was created directly over the site of the existing incision in the right chest. This was carried down through the skin and subcutaneous tissue to reveal the port below. The port was carefully dissected free from the pocket. The tubing was gently grasped and divided just proximal to its attachment to the port. Holding the tubing carefully, a J-wire was placed through the tubing and into the vena cava. The existing tubing was then removed leaving the J-wire in place.The tubing for a new port device was then placed over the wire and into the vein. It was trimmed at 20 cm. It was attached to the port and the collar placed. The port was checked and flushed and esdras easily. It was then sewn into the pocket with interrupted Prolene sutures. It was checked once again and then locked with heparin solution. The pocket was closed in 2 layers with Vicryl and Monocryl suture. All sponge, needle, and instrument counts were correct at the conclusion of the case. The patient was allowed awaken from anesthesia without difficulty and taken to the postanesthesia care unit in good condition.
[2019-06-07] MEDS ORDERED: oxyCODONE 5 MG TABLET PO PRN (09:24)
--- NOTE | 2019-06-07 09:56 | XRAY Report ---
Reason: Port placement Procedure Date: 06/07/2019 Accession Number: [id number] / [id number] Procedure: XR - Chest for Line Placement CPT Code: Final Report FULL RESULT: EXAM: CHEST RADIOGRAPHY EXAM DATE: 06/07/2019 09:35 AM. CLINICAL HISTORY: Port placement. COMPARISON: CHEST 1 VIEW 05/18/2019 12:20 PM. TECHNIQUE: Upright AP view. FINDINGS: Lungs/Pleura: No focal opacities evident. No pleural effusion. No pneumothorax. Mediastinum: Within exam limitations, the cardiomediastinal contour is normal. Other: Right subclavian Port-A-Cath with its tip at the superior cavoatrial junction, as before. Minimal undulation/kinking of the catheter in the medial subclavian region, as before. IMPRESSION: Right subclavian Port-A-Cath with its tip at the superior cavoatrial junction, as before. Minimal undulation/kinking of the catheter in the medial subclavian region, as before. RADIA
[2019-06-07 10:00] VITALS: BP 124/82
== END 2019-06-07 06:10 | disposition home or self-care (01) ==
LOC: SDS 06:09
PROVIDERS: ATTEND Surgery
PROC: 0J2TXYZ Change Other Device in Trunk Subcutaneous Tissue and Fascia, External Approach (ICD-10-PCS; principal; 2019-06-07 07:30)
DX: T82.518A Breakdown (mechanical) of other cardiac and vascular devices and implants, initial encounter (principal); Y82.8 Other medical devices associated with adverse incidents; Y92.234 Operating room of hospital as the place of occurrence of the external cause; Y83.9 Surgical procedure, unspecified as the cause of abnormal reaction of the patient, or of later complication, without mention of misadventure at the time of the procedure; C79.9 Secondary malignant neoplasm of unspecified site; E03.9 Hypothyroidism, unspecified; R01.1 Cardiac murmur, unspecified; I10 Essential (primary) hypertension; K21.9 Gastro-esophageal reflux disease without esophagitis
CPT/HCPCS: 36582; C1788; J0690; J7120; 71045

== ENCOUNTER 2019-07-08 18:39 | Outpatient (CLI) | payer MEDICARE | END 2019-07-08 18:40 | disposition critical access hospital (66) | LOC: EMS 18:39 | PROVIDERS: ATTEND Surgery | DX: R55 Syncope and collapse (principal) | CPT/HCPCS: A0425; A0429 ==

== ENCOUNTER 2019-07-08 18:47 | Emergency (ER) | payer MEDICARE ==
--- NOTE | 2019-07-08 20:15 | ED Physician Documentation ---
History of Present Illness - Stated complaint Stated Complaint: NEAR SYNCOPE, FLU EXPOSURE - Chief complaint Chief Complaint: Abd Pain - History obtained from History obtained from: Patient (Patient is a 73-year-old male who is on chronic IV amnio therapy once a month and is being treated for stage IV metastatic melanoma. For the last 3 days he has been having intractable nausea, not vomiting and diarrhea he reports subjective shaking and chills but denies a fever. He denies severe abdominal pain.) Review of Systems Constitutional: reports: Chills, Myalgias Eyes: reports: Reviewed and negative Ears: reports: Reviewed and negative Nose: reports: Reviewed and negative Throat: reports: Reviewed and negative Cardiac: reports: Reviewed and negative Respiratory: reports: Reviewed and negative GI: reports: Vomiting, Diarrhea : reports: Reviewed and negative Skin: reports: Reviewed and negative Musculoskeletal: reports: Reviewed and negative Neurologic: reports: Reviewed and negative Psychiatric: reports: Reviewed and negative Endocrine: reports: Reviewed and negative Immunocompromised: reports: Reviewed and negative PD PAST MEDICAL HISTORY - Past Medical History Past Medical History: Yes Cardiovascular: Hypertension, Murmur Respiratory: None Neuro: None Endocrine/Autoimmune: HyPOthyroidism GI: None : Kidney stones HEENT: Chronic vision loss Psych: None Musculoskeletal: Osteoarthritis Derm: Other - Past Surgical History Past Surgical History: Yes General: Colonoscopy, EGD, Other Cardiovascular: Other HEENT: Tonsil/Adenoidectomy, Other - Present Medications Home Medications: Ambulatory Orders Medication Instructions Recorded Confirmed Levothyroxine Sodium [Levoxyl] 88 mcg PO DAILY 08/28/15 06/07/19 Potassium Chloride 20 meq ORAL BID 04/21/18 06/07/19 Fludrocortisone [Florinef] 0.05 mg PO DAILY 07/22/18 06/07/19 Hydrocortisone 10 mg PO DAILY 04/01/19 06/07/19 Saccharomyces Boulardii [Daily 250 mg PO BID #14 capsule 04/03/19 06/07/19 Probiotic] Hydrocodone/Acetaminophen 1 each PO Q6H PRN #10 tablet 06/07/19 [Hydrocodone-Acetamin 5-325 mg] Ondansetron Odt [Zofran] 4 mg TL Q6H PRN #10 tablet 07/08/19 - Allergies Allergies/Adverse Reactions: Allergies Allergy/AdvReac Type Severity Reaction Status Date / Time nivolumab [From Opdivo] AdvReac Intermediate LOWER Verified 07/08/19 18:51 EXTREMITY PAIN morphine AdvReac Itching Verified 07/08/19 18:51 - Social History Does the pt smoke?: No Smoking Status: Never smoker Does the pt drink ETOH?: No Does the pt have substance abuse?: No - Immunizations Immunizations are current?: Yes - POLST Patient has POLST: No PD ED PE NORMAL - Vitals Vital signs reviewed: Yes - General General: Alert and oriented X 3, No acute distress - HEENT HEENT: PERRL - Neck Neck: Supple, no meningeal sign - Cardiac Cardiac: RRR, No murmur - Respiratory Respiratory: Clear bilaterally - Abdomen Abdomen: Normal bowel sounds, Soft, Non tender, Non distended - Derm Derm: Warm and dry - Extremities Extremities: No deformity - Neuro Neuro: Alert and oriented X 3 - Psych Psych: Normal mood, Normal affect Results - Vitals Vitals: Vital Signs - 24 hr 07/08/19 07/08/19 07/08/19 18:49 19:14 20:25 Temperature 37.3 C Heart Rate 78 87 83 Respiratory 16 17 16 Rate Blood Pressure 117/78 114/73 131/71 H O2 Saturation 94 97 97 07/08/19 07/08/19 07/08/19 20:35 20:48 21:51 Temperature 37.0 C Heart Rate 88 72 Respiratory 17 18 17 Rate Blood Pressure 108/75 O2 Saturation 100 98 07/08/19 22:20 Temperature Heart Rate Respiratory 16 Rate Blood Pressure 111/68 O2 Saturation Oxygen O2 Source Room air - EKG (time done) 20:29 Rate: Other (no stemi) - Labs Labs: Laboratory Tests 07/08/19 07/08/19 07/08/19 19:06 19:06 19:06 WBC 4.2 L RBC 5.82 Hgb 16.4 Hct 50.4 MCV 86.6 MCH 28.2 MCHC 32.5 RDW 14.9 Plt Count 157 MPV 11.9 H Neut # (Auto) 2.6 Lymph # (Auto) 0.8 L [place] # (Auto) 0.5 Eos # (Auto) 0.3 Baso # (Auto) 0.0 Absolute Nucleated RBC 0.00 Nucleated RBC % 0.0 PT 15.8 H INR 1.4 H APTT 93.3 H* Sodium 134 L Potassium 3.7 Chloride 101 Carbon Dioxide 24 Anion Gap 9.0 BUN 36 H Creatinine 1.2 Estimated GFR (MDRD) 60 L Glucose 106 H Lactic Acid Calcium 8.4 L Phosphorus 3.9 Magnesium 2.1 Ammonia Total Creatine Kinase 68 Troponin I High Sens B-Natriuretic Peptide Ethyl Alcohol < 5.0 Influenza A (Rapid) Influenza B (Rapid) 07/08/19 07/08/19 07/08/19 19:06 19:06 20:20 WBC RBC Hgb Hct MCV MCH MCHC RDW Plt Count MPV Neut # (Auto) Lymph # (Auto) [place] # (Auto) Eos # (Auto) Baso # (Auto) Absolute Nucleated RBC Nucleated RBC % PT INR APTT Sodium Potassium Chloride Carbon Dioxide Anion Gap BUN Creatinine Estimated GFR (MDRD) Glucose Lactic Acid Calcium Phosphorus Magnesium Ammonia Total Creatine Kinase Troponin I High Sens 7.8 B-Natriuretic Peptide 48 Ethyl Alcohol Influenza A (Rapid) Negative Influenza B (Rapid) Negative 07/08/19 07/08/19 20:48 20:48 WBC RBC Hgb Hct MCV MCH MCHC RDW Plt Count MPV Neut # (Auto) Lymph # (Auto) [place] # (Auto) Eos # (Auto) Baso # (Auto) Absolute Nucleated RBC Nucleated RBC % PT INR APTT Sodium Potassium Chloride Carbon Dioxide Anion Gap BUN Creatinine Estimated GFR (MDRD) Glucose Lactic Acid 1.5 Calcium Phosphorus Magnesium Ammonia 12.6 Total Creatine Kinase Troponin I High Sens B-Natriuretic Peptide Ethyl Alcohol Influenza A (Rapid) Influenza B (Rapid) PD MEDICAL DECISION MAKING - ED course Complexity details: re-evaluated patient (22:55 Patient reevaluated, he is awake, alert, oriented, He is nontoxic and nonseptic appearing his vital signs are stable.tolerated p.o. challenge steady gait is requesting be discharged home his labs were reviewed they are unremarkable his blood pressure is 115/75 currently with a pulse of 75 and regular he is afebrile patient would like to be discharged home at this time.) Departure - Departure Disposition: 01 Home, Self Care Clinical Impression: Vomiting Qualifiers: Vomiting type: unspecified Vomiting Intractability: unspecified Nausea presence: unspecified Qualified Code(s): R11.10 - Vomiting, unspecified Condition: Good Instructions: ED Diet Vomiting Diarrhea Follow-Up: Joanna Shepherd MD [Primary Care Provider] - Tomorrow Prescriptions: Ondansetron Odt [Zofran] 4 mg TL Q6H PRN #10 tablet PRN Reason: Nausea / Vomiting
[2019-07-08] MEDS ORDERED: SODIUM CHLORIDE 0.9% 1,000 ML IV ONE (20:26)
[2019-07-08] MEDS ORDERED: ONDANSETRON 4 MG/2 ML VIAL IVP STA (20:28)
[2019-07-08 20:35] LABS: BASOPHILS % (AUTO) 0.7 %; EOSINOPHILS # (AUTO) 0.3 10^3/uL (0.0-0.7); EOSINOPHILS % (AUTO) 7.8 %; HGB - HEMOGLOBIN 16.4 g/dL (14.0-18.0); LYMPHOCYTES # (AUTO) 0.8 10^3/uL (1.5-3.5); LYMPHOCYTES % (AUTO) 18.9 %; MEAN CORPUSCULAR HEMOGLOBIN 28.2 pg (27.0-31.0); MEAN CORPUSCULAR HGB CONC 32.5 g/dL (32.0-36.0); MEAN CORPUSCULAR VOLUME 86.6 fL (80.0-94.0); MEAN PLATELET VOLUME 11.9 fL (7.4-11.4); MONOCYTES # (AUTO) 0.5 10^3/uL (0.0-1.0); MONOCYTES % (AUTO) 11.3 %; NEUTROPHILS # (AUTO) 2.6 10^3/uL (1.5-6.6); NEUTROPHILS % (AUTO) 60.6 %; PLT - PLATELET COUNT 157 10^3/uL (130-450); RED BLOOD COUNT 5.82 10^6/uL (4.70-6.10); RED CELL DISTRIBUTION WIDTH 14.9 % (12.0-15.0); WHITE BLOOD COUNT 4.2 x10^3/uL (4.8-10.8)
[2019-07-08 20:45] LABS: BUN - BLOOD UREA NITROGEN 36 mg/dL (6-20); CALCIUM 8.4 mg/dL (8.5-10.3); CARBON DIOXIDE - CO2 24 mmol/L (21-32); CHLORIDE 101 mmol/L (101-111); CK- CREATINE KINASE 68 IU/L (22-269); CREATININE 1.2 mg/dL (0.6-1.2); GFR - MDRD 60 (>89); GLUCOSE 106 mg/dL (70-100); MAGNESIUM 2.1 mg/dL (1.7-2.8); PHOSPHORUS 3.9 mg/dL (2.5-4.6); SODIUM 134 mmol/L (135-145)
[2019-07-08 20:46] LABS: INR 1.4 (0.8-1.2); PT - PROTHROMBIN TIME 15.8 secs (9.9-12.6)
--- NOTE | 2019-07-08 21:03 | XRAY Report ---
Reason: weakness Procedure Date: 07/08/2019 Accession Number: [id number] / [id number] Procedure: XR - Chest 1 View X-Ray CPT Code: 23323 Final Report FULL RESULT: EXAM: CHEST RADIOGRAPHY EXAM DATE: 07/08/2019 08:38 PM. CLINICAL HISTORY: Weakness. COMPARISON: CHEST FOR LINE PLACEMENT 06/07/2019 9:18 AM. TECHNIQUE: 1 view. FINDINGS: Lungs/Pleura: No focal opacities evident. No pleural effusion. No pneumothorax. Mediastinum: Within exam limitations, the cardiomediastinal contour is normal. Other: Right Port-A-Cath central line again noted. IMPRESSION: No acute cardiopulmonary disease seen. RADIA
[2019-07-08 21:05] LABS: PARTIAL THROMBOPLASTIN TIME 93.3 secs (24.9-33.3)
[2019-07-08 22:21] VITALS: BP 111/68
== END 2019-07-08 23:16 | disposition home or self-care (01) ==
LOC: ED 18:47
DX: R11.2 Nausea with vomiting, unspecified (principal); R19.7 Diarrhea, unspecified; R68.83 Chills (without fever); C79.2 Secondary malignant neoplasm of skin; C80.1 Malignant (primary) neoplasm, unspecified; Z79.899 Other long term (current) drug therapy; I10 Essential (primary) hypertension
CPT/HCPCS: 36415; 71045; 80048; 80320; 82140; 82550; 83605; 83735; 83880; 84100; 84484; 85025; 85610; 85730; 87040; 87275; 87276; 93005; 96361; 96374; 99284

== ENCOUNTER 2020-03-16 15:10 | Outpatient (CLI) | payer MEDICARE ==
[2020-03-16] MEDS ORDERED: SODIUM CHLORIDE FLUSH 0.9% 10 ML SYRINGE ONE (15:44)
[2020-03-16] MEDS ORDERED: IOVERSOL 320 50 ML VIAL ONE (16:05)
[2020-03-16] MEDS ORDERED: IOVERSOL 320 100 ML VIAL IVP ONE ×2 (16:05→17:09)
[2020-03-16] MEDS ORDERED: IOVERSOL 320 50 ML VIAL PO ONE (17:09)
[2020-03-16] MEDS ORDERED: GADOBUTROL 10 MMOL/10 ML VIAL ONE (17:19)
--- NOTE | 2020-03-16 17:33 | CT Report ---
PROCEDURE: CHEST W INDICATIONS: METASTACTIC MELANOMA CONTRAST: IV CONTRAST: Optiray 320 ml: 100 PO CONTRAST: Optiray 320 ml50 TECHNIQUE: After the administration of intravenous contrast, 5 mm thick sections acquired from the pulmonary api devaughn to the posterior costophrenic angles. 7 mm thick coronal MIP reformats were acquired. For radia tion dose reduction, the following was used: automated exposure control, adjustment of mA and/or kV according to patient size. COMPARISON: 10/11/2019, 03/31/2019 FINDINGS: Image quality: Excellent. Lungs and pleura: A 1.1 x 0.5 cm nodule in the anterior Left upper lobe at a midlung level (3/152), is stable in size and morphology. A 4 mm wispy groundglass nodule in the right middle lobe is unchang ed. (3/173). No new nodules. There are mild gravitational changes posteriorly in the right lung and s carring at the left lung base. No pleural effusions or pneumothorax. Central and peripheral airways are patent and normal in caliber. Mediastinum: Heart size is normal. No pericardial effusion. No mediastinal or hilar adenopathy by size criteria. Thoracic aorta and central pulmonary arteries are normal in size. Esophagus is maxwell l in caliber. No hiatal hernia. Bones and chest wall: Right chest Mediport in place. No suspicious bony lesions. No vertebral body compression fractures. No axillary or supraclavicular adenopathy by size criteria. Thyroid gland is not seen.. Abdomen: See separate report. IMPRESSION: 1. Stable bilateral lung nodules, nonspecific but probably postinfectious/inflammatory/scar. 2. No new lung nodules or adenopathy in the chest. 3. Thyroid gland atrophy versus surgical absence. Reviewed by: Mackenzie Deng MD on 03/16/2020 5:31 PM PST Approved by: Mackenzie Deng MD on 03/16/2020 5:31 PM PST Station ID: [id number]
[2020-03-16] MEDS ORDERED: GADOBUTROL 10 MMOL/10 ML VIAL IVP ONE (17:39)
--- NOTE | 2020-03-16 17:47 | CT Report ---
PROCEDURE: Abdomen/Pelvis W INDICATIONS: METASTACTIC MELANOMA CONTRAST: IV CONTRAST: Optiray 320 ml: 100 PO CONTRAST: Optiray 320 ml50 TECHNIQUE: After the administration of 100 cc Optiray 320 IV contrast, 5 mm thick sections acquired from the shabbir phragms to the symphysis. 5 mm thick coronal and sagittal reformats were acquired. For radiation do se reduction, the following was used: automated exposure control, adjustment of mA and/or kV accordi ng to patient size. COMPARISON: 10/11/2019, 03/31/2019, 01/03/2018 FINDINGS: Image quality: Excellent. ABDOMEN: Lung bases: Lung bases are clear. Heart size is normal. Solid organs: Subcentimeter cyst in the upper aspect of the left hepatic lobe. No other discrete live r mass. No splenic lesions. The gallbladder is partially decompressed and contains numerous calcifica tions of varying sizes. No pericholecystic inflammation. Adrenal glands are atrophic bilaterally. No suspicious nodules. 2.7 x 2.1 cm hypodense mass in the posterior medial aspect of the right renal midpole fairly stable s ize compared to the prior studies. There is an exophytic upper pole right renal cyst, and a small low er pole left parapelvic cyst. No biliary dilatation. The pancreas demonstrates fatty attenuation and there is a stable round hyperd ense nodule in the dorsal tail measuring 6 mm. No pancreatic ductal dilatation. Peritoneum and bowel: Bowel loops demonstrate normal wall thickness and caliber. No free fluid or a ir. Nodes and vessels: No retroperitoneal or mesenteric adenopathy by size criteria. Aorta and inferior vena cava are normal in size. Miscellaneous: No ventral hernias. PELVIS: Genitourinary: Bladder wall thickness is normal. Miscellaneous: No inguinal hernias or adenopathy. Bones: No suspicious bony lesions. Mild S-shaped scoliosis of the thoracolumbar spine and multileve l disc degeneration. No vertebral body compression fractures. IMPRESSION: 1. 2.7 cm chronic right posterior solid appearing renal mass for which differential diagnosis include s renal cell carcinoma, oncocytoma, proteinaceous cyst, and metastatic disease. No significant change compared to the most remote prior study. If not previously performed, follow-up evaluation with oscar l protocol MR or CT is recommended versus tissue biopsy. 2. Cholelithiasis. 3. 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 4. No suspicious adenopathy. Reviewed by: Mackenzie Deng MD on 03/16/2020 5:45 PM PST Approved by: Mackenzie Deng MD on 03/16/2020 5:45 PM PST Station ID: [id number]
--- NOTE | 2020-03-16 18:17 | MRI Report ---
PROCEDURE: Brain W/WO INDICATIONS: METASTACTIC MELANOMA CONTRAST: IV CONTRAST: Gadavist ml: 10 TECHNIQUE: Noncontrast axial T1 spin echo, axial T2 fast spin echo, sagittal and axial FLAIR, coronal T2 fast sp in echo, axial gradient echo, axial diffusion and ADC through the brain. After the administration of contrast, axial and coronal T1 spin echo with fat saturation through the brain. COMPARISON: 10/11/2019 FINDINGS: Image quality: Excellent. CSF spaces: Basal cisterns are patent. No extra-axial fluid collections. Ventricles are normal in size and shape. Brain: There is again seen an enhancing focus involving the left basal ganglia. There is blooming ar tifact seen at this site, which is consistent with prior hemorrhage. Blooming artifact can be seen elsewhere, as before. No midline shift. There is cerebral volume loss for age. There is periventricular white matter chr onic small vessel ischemic change. The brainstem appears normal. Diffusion-weighted images demonstr ate no acute ischemic insults. No chronic ischemic insults. Normal intravascular flow voids are pre sent. Skull and face: Calvarial marrow is normal in signal. Orbits appear normal. Sinuses: Mucous retention cysts are seen involving the inferior aspects of the maxillary sinuses. The paranasal sinuses otherwise appear clear. IMPRESSION: Stable enhancing focus within the medial left frontal lobe. Metastatic disease is suspec daily. Surrounding blooming artifact is seen, which is consistent with prior hemorrhage. Blooming artifact can be seen elsewhere, which are nonspecific. Differential diagnosis includes rajesh nous angiomas, areas of treated metastatic disease with hemorrhage, and potentially amyloid disease. Reviewed by: Grover Royal MD on 03/16/2020 5:16 PM [place] Approved by: Grover Royal MD on 03/16/2020 5:16 PM AKST Station ID: [id number]
== END 2020-03-16 15:11 | disposition home or self-care (01) ==
LOC: DI 15:10
PROVIDERS: ATTEND Internal Medicine Hematology & Oncology
DX: C43.8 Malignant melanoma of overlapping sites of skin (principal); C78.7 Secondary malignant neoplasm of liver and intrahepatic bile duct; C78.01 Secondary malignant neoplasm of right lung; R91.8 Other nonspecific abnormal finding of lung field; N28.89 Other specified disorders of kidney and ureter; K80.20 Calculus of gallbladder without cholecystitis without obstruction
CPT/HCPCS: 70553; 71260; 74177; A9585; Q9967

== ENCOUNTER 2020-05-16 08:00 | Outpatient (CLI) | payer MEDICARE ==
[2020-05-16 09:58] LABS: BASOPHILS # (AUTO) 0.1 10^3/uL (0.0-0.1); BASOPHILS % (AUTO) 1.5 %; EOSINOPHILS # (AUTO) 0.3 10^3/uL (0.0-0.7); EOSINOPHILS % (AUTO) 5.3 %; HGB - HEMOGLOBIN 15.9 g/dL (14.0-18.0); LYMPHOCYTES # (AUTO) 1.2 10^3/uL (1.5-3.5); LYMPHOCYTES % (AUTO) 25.4 %; MEAN CORPUSCULAR HEMOGLOBIN 28.1 pg (27.0-31.0); MEAN CORPUSCULAR HGB CONC 31.2 g/dL (32.0-36.0); MEAN CORPUSCULAR VOLUME 89.9 fL (80.0-94.0); MEAN PLATELET VOLUME 11.2 fL (7.4-11.4); MONOCYTES # (AUTO) 0.4 10^3/uL (0.0-1.0); MONOCYTES % (AUTO) 7.7 %; NEUTROPHILS # (AUTO) 2.7 10^3/uL (1.5-6.6); NEUTROPHILS % (AUTO) 58.4 %; PLT - PLATELET COUNT 161 10^3/uL (130-450); RED BLOOD COUNT 5.66 10^6/uL (4.70-6.10); RED CELL DISTRIBUTION WIDTH 15.3 % (12.0-15.0); WHITE BLOOD COUNT 4.7 x10^3/uL (4.8-10.8)
[2020-05-16 10:17] LABS: ALBUMIN 4.2 g/dL (3.2-5.5); ALBUMIN/GLOBULIN RATIO 1.8 (1.0-2.2); ALKALINE PHOSPHATASE 53 IU/L (42-121); ALT ALANINE AMINOTRANSFERASE 15 IU/L (10-60); AST ASPARTATE AMINOTRANSFERASE 19 IU/L (10-42); BUN - BLOOD UREA NITROGEN 32 mg/dL (6-20); CALCIUM 9.2 mg/dL (8.5-10.3); CARBON DIOXIDE - CO2 24 mmol/L (21-32); CHLORIDE 104 mmol/L (101-111); CHOL/HDL RATIO 3.6 (<5.0); CHOLESTEROL 211 mg/dL; CREATININE 1.1 mg/dL (0.6-1.2); GLUCOSE 97 mg/dL (70-100); HDL CHOLESTEROL 59 mg/dL; LDL CHOLESTEROL,CALCULATED 125 mg/dL; LDL/HDL RATIO 2.1 (<3.6); TOTAL PROTEIN 6.5 g/dL (6.7-8.2); VLDL CHOLESTEROL 27 mg/dL
== END 2020-05-16 23:59 | disposition home or self-care (01) ==
LOC: LAB.R 08:00
PROVIDERS: ATTEND Internal Medicine
DX: E87.6 Hypokalemia (principal); Z13.6 Encounter for screening for cardiovascular disorders; C79.9 Secondary malignant neoplasm of unspecified site; C73 Malignant neoplasm of thyroid gland; I10 Essential (primary) hypertension; E03.9 Hypothyroidism, unspecified; Z79.899 Other long term (current) drug therapy
CPT/HCPCS: 80053; 80061; 81599; 83721; 84153; 84403; 84432; 84443; 85025; 86800

== ENCOUNTER 2020-08-30 10:31 | Outpatient (CLI) | payer MEDICARE ==
[2020-08-30] MEDS ORDERED: IOPAMIDOL-300 100 ML VIAL ONE (10:39)
[2020-08-30] MEDS ORDERED: IOPAMIDOL-300 50 ML VIAL ONE (10:39)
[2020-08-30] MEDS ORDERED: GADOBUTROL 10 MMOL/10 ML VIAL ONE (11:35)
[2020-08-30] MEDS ORDERED: IOPAMIDOL-300 50 ML VIAL PO ONE (11:52)
[2020-08-30] MEDS ORDERED: IOPAMIDOL-300 100 ML VIAL IVP ONE (11:53)
--- NOTE | 2020-08-30 14:07 | CT Report ---
PROCEDURE: Abdomen/Pelvis W INDICATIONS: MELANOMA CONTRAST: IV CONTRAST: Isovue 300 ml: 100 PO CONTRAST: Isovue 300 ml50 TECHNIQUE: After the administration of nonionic contrast, 5 mm thick sections acquired from the diaphragms to th e symphysis. 5 mm thick coronal and sagittal reformats were acquired. For radiation dose reduction, the following was used: automated exposure control, adjustment of mA and/or kV according to patient size. COMPARISON: 03/16/[address] FINDINGS: Image quality: Excellent. ABDOMEN: Lung bases: Lung bases are clear. Heart size is normal. Solid organs: Liver and spleen are normal in size and enhancement. Gallbladder contains a densely c alcified gallstone at the gallbladder fundus, and does not appear obstructed or inflamed. Biliary sy stem is non dilated. Pancreas enhances normally except for presence of a previously identified small ovoid 7 x 8 mm nodule at the pancreatic tail posterior margin, stable from 04/21/2018 comparison con trast-enhanced CT scanning through that area.. No adrenal nodules. Kidneys demonstrate normal size and enhancement, without hydronephrosis. There is a radiodensity that measures approximately 60 Houn sfield units at the posterior cortex of the right mid kidney, and this also has been previously prese nt on multiple prior CT scans. Peritoneum and bowel: Bowel loops demonstrate normal wall thickness and caliber. No free fluid or a ir. Nodes and vessels: No retroperitoneal or mesenteric adenopathy by size criteria. Aorta and inferior vena cava are normal in size. Miscellaneous: No ventral hernias. PELVIS: Genitourinary: Bladder wall thickness is normal. Miscellaneous: No inguinal hernias or adenopathy. Bones: No suspicious bony lesions. No vertebral body compression fractures. IMPRESSION: 1. No definite interval tire changer aircraft multiple prior CT scans including extending into the 04/21/2018 t lionel frame. There is a small 7 x 8 mm enhancing nodule at the posterior pancreatic parenchymal more ma rgin of the pancreatic tail, potentially a small islet cell tumor that has not enlarged. 2. A rounded posterior right renal cortical 60 Hounsfield unit structure is present that has not been fully assessed but has not changed significantly over time. This could be a proteinaceous cyst and t herefore a targeted single organ right renal ultrasound is recommended to assist in determining wheth er this represents a solid mass or a proteinaceous cyst internally. 3. Dense moderate sized gallbladder fundal calculus, without adjacent inflammation. 4. No definite melanoma metastatic disease. Reviewed by: Diallo Saunders MD on 08/30/2020 2:06 PM PDT Approved by: Diallo Saunders MD on 08/30/2020 2:06 PM PDT Station ID: [id number]
--- NOTE | 2020-08-30 14:17 | CT Report ---
PROCEDURE: CHEST W INDICATIONS: MELANOMA CONTRAST: IV CONTRAST: Isovue 300 ml: 100 PO CONTRAST: Isovue 300 ml50 TECHNIQUE: After the administration of intravenous contrast, 5 mm thick sections acquired from the pulmonary api devaughn to the posterior costophrenic angles. 7 mm thick coronal MIP reformats were acquired. For radia tion dose reduction, the following was used: automated exposure control, adjustment of mA and/or kV according to patient size. COMPARISON: 03/16/2020 and 10/11/[address] scanning.. FINDINGS: Image quality: Excellent. Lungs and pleura: No acute air space opacities. 2 previously present nodules are stable over time, the smaller of which is located within the minor fissure margin on the right, seen on series 3 image 149 and measuring only 4 mm in diameter, without change. The second is located medially within the le ft upper lobe, and measures approximately 6 x 8 mm, also without exchange mechanic time. No new nodule has developed.. No pleural effusions or pneumothorax. Central and peripheral airways are patent and norm al in caliber. Mediastinum: Heart size is normal. No pericardial effusion. No mediastinal or hilar adenopathy by size criteria. Thoracic aorta and central pulmonary arteries are normal in size. Esophagus is maxwell l in caliber. No hiatal hernia. Bones and chest wall: No suspicious bony lesions. No vertebral body compression fractures. No axil anam or supraclavicular adenopathy by size criteria. Thyroid gland . Abdomen: Visualized upper abdominal solid organs appear normal. Upper abdominal bowel loops are nor mal in caliber. Please refer to dedicated abdomen CT from same day for additional details. IMPRESSION: Likely benign stable appearing nodules within the right and left lung parenchyma as discussed, measur ing 4 mm and 6 x 8 mm respectively without exchange mechanic time. No new nodules have developed. Reviewed by: Diallo Saunders MD on 08/30/2020 2:16 PM PDT Approved by: Diallo Saunders MD on 08/30/2020 2:16 PM PDT Station ID: [id number]
--- NOTE | 2020-08-30 14:47 | MRI Report ---
PROCEDURE: Brain W/WO INDICATIONS: MELANOMA CONTRAST: IV CONTRAST: Gadavist ml: 10 TECHNIQUE: Noncontrast axial T1 spin echo, axial T2 fast spin echo, sagittal and axial FLAIR, coronal T2 fast sp in echo, axial gradient echo, axial diffusion and ADC through the brain. After the administration of contrast, axial and coronal T1 spin echo with fat saturation through the brain. COMPARISON: MRI brain 03/16/2020, 10/11/2019, 04/26/2019, 12/31/2018, 08/27/2018 FINDINGS: Image quality: Excellent. The ventricular system and cortical sulci demonstrate atrophy, consistent for patient's stated age. There are areas of hyperintense T2/FLAIR signal in the periventricular and subcortical white matter. There is no acute intra or extra-axial fluid collection. There is a stable 6 mm focus in the medial aspect of the left basal ganglia/anterior limb of the internal capsule. This area demonstrates correl ative hypointensity on gradient sequence. It demonstrates relative T1 hyperintensity. No new addition al foci of abnormal enhancement are identified. Brainstem is unremarkable. There are no areas of res tricted diffusion. Globes are symmetrical. Sinuses demonstrate bilateral mucus retention cysts versu s polyps, unchanged.. Osseous structures are intact. IMPRESSION: 1. Stable enhancing left medial focus of enhancement with blooming artifact felt to be likely related to prior hemorrhage. Enhancing focus and relative T1 hyperintensity are suggestive of melanoma metas tatic disease. Reviewed by: Rubia Perez MD on 08/30/2020 2:46 PM PDT Approved by: Rubia Perez MD on 08/30/2020 2:46 PM PDT Station ID: [id number]
[2020-08-30] MEDS ORDERED: GADOBUTROL 10 MMOL/10 ML VIAL IVP ONE (16:04)
== END 2020-08-30 10:32 | disposition home or self-care (01) ==
LOC: DI 10:31
PROVIDERS: ATTEND Physician Assistant
DX: C43.9 Malignant melanoma of skin, unspecified (principal); K86.9 Disease of pancreas, unspecified; N28.89 Other specified disorders of kidney and ureter; K80.20 Calculus of gallbladder without cholecystitis without obstruction; R91.8 Other nonspecific abnormal finding of lung field; R93.0 Abnormal findings on diagnostic imaging of skull and head, not elsewhere classified
CPT/HCPCS: 70553; 71260; 74177; A9585; Q9967

== ENCOUNTER 2021-02-19 07:45 | Outpatient (CLI) | payer MEDICARE ==
[2021-02-19] MEDS ORDERED: IOVERSOL 320 100 ML VIAL IVP ONE ×2 (07:55→10:00)
[2021-02-19] MEDS ORDERED: IOVERSOL 320 50 ML VIAL ONE (07:55)
[2021-02-19] MEDS ORDERED: GADOBUTROL 15 MMOL/15 ML VIAL ONE (08:38)
[2021-02-19] MEDS ORDERED: IOVERSOL 320 50 ML VIAL PO ONE (09:59)
--- NOTE | 2021-02-19 10:41 | CT Report ---
PROCEDURE: CHEST W INDICATIONS: MELANOMA CONTRAST: IV CONTRAST: Optiray 320 ml: 100 PO CONTRAST: Optiray 320 ml50 TECHNIQUE: After the administration of intravenous contrast, 1 mm axial images were acquired from the pulmonary apices through the posterior costophrenic angles. Axial 5 mm soft tissue kernel reconstructions were performed as well as 8 mm axial MIP and coronal and sagittal 5 mm reformations. For radiation dose reduction, the following was used: automated exposure control, adjustment of mA and/or kV according to patient size. COMPARISON: Prior studies dating back to March 31, 2019 FINDINGS: CT CHEST: Thyroid: Not well visualized distally. Vasculature: The thoracic aorta and arch vasculature have a normal contrasted appearance and are norm al size and contour. No evidence for dissection. Minimal calcified edematous change of the aorta. A right portacatheter is seen. Heart: No cardiomegaly or significant pericardial effusion. Mediastinum: No pathologic lymph node enlargement by size criteria. Lung/pleura: No pleural effusion, consolidation, or pneumothorax. 10 x 5 mm nodular density is again in the anterior aspect of the left upper lobe, which may reflect scarring. Tracheobronchial tree: Patent. Bones: No acute abnormality. Remote fractures of the right third through sixth ribs. Chest wall: The chest wall and axilla are within normal limits. IMPRESSION: 1.No significant interval change. Continue surveillance or PET CT imaging as clinically warranted. Reviewed by: Abdi Estrada MD on 02/19/2021 10:40 AM PDT Approved by: Abdi Estrada MD on 02/19/2021 10:40 AM PDT Station ID: [id number]
--- NOTE | 2021-02-19 12:07 | CT Report ---
PROCEDURE: Abdomen/Pelvis W INDICATIONS: MELANOMA CONTRAST: IV CONTRAST: Optiray 320 ml: 100 PO CONTRAST: Optiray 320 ml50 TECHNIQUE: After the administration of oral and IV contrast, 5 mm thick sections acquired from the diaphragms to the symphysis. 5 mm thick coronal and sagittal reformats were acquired. For radiation dose reducti on, the following was used: automated exposure control, adjustment of mA and/or kV according to dyan ent size. COMPARISON: August 30, 2020 FINDINGS: Gallbladder: No gallbladder wall thickening or pericholecystic fluid. Redemonstrated cholelithiasis and/or gallbladder wall calcification. Biliary tree: No intra-or extrahepatic biliary ductal dilatation. Liver: The liver demonstrates normal enhancement, size, and contour. 7.2 mm hypoattenuating lesion in the left hepatic lobe, which may reflect a cyst. Spleen: Normal enhancement, size and morphology is seen. Pancreas: No surrounding inflammatory change. Fatty replacement. Persistent 7 mm solid nodule in the pancreatic tail. Adrenals: Normal size without masses. Kidneys/ureters: Bilateral parapelvic and cortical hypoattenuating lesions are seen, measuring up to 4.1 cm, most consistent with cysts. 2.3 cm slightly hypodense lesion in the right lower pole, which d emonstrates attenuation values greater than simple fluid. Vasculature: No evidence of aneurysm or other significant vascular pathology. Lymphatic system: No pathologic enlargement by size criteria. GI/mesentery: Trace hiatal hernia. No evidence of intestinal obstruction. The appendix is not clearl y identified. Peritoneum/Retroperitoneum: No free intraperitoneal gas or large collection. Urinary bladder: The urinary bladder is distended with a smooth thin wall. A 4.8 mm nodular focus is seen (series 6, image 78) along the right aspect of urinary bladder, which may demonstrate fat attenu ation. Pelvic organs: No significant abnormality. Bones/soft tissues: No significant abnormality. Small fat-containing periumbilical hernia. Multifocal degenerative change of the osseous structures. IMPRESSION: 1.Stable appearance of the gallbladder with cholelithiasis and/or gallbladder wall calcification. 2.Redemonstrated 2.3 cm right lower pole slightly hypodense lesion, which is incompletely characteriz ed. Differential considerations include a proteinaceous/hemorrhagic cyst or solid mass. Consider magn etic resonance imaging with renal protocol for further evaluation as clinically warranted. 3. 4.8 mm nodular focus in the right aspect of the urinary bladder, which may represent a lipoma. Con tailing hand CT follow-up for cystoscopy as clinically warranted. 4.Stable 7 mm solid nodule in the pancreatic tail. Reviewed by: Abdi Estrada MD on 02/19/2021 12:05 PM PDT Approved by: Abdi Estrada MD on 02/19/2021 12:05 PM PDT Station ID: [id number]
--- NOTE | 2021-02-19 14:24 | MRI Report ---
PROCEDURE: Brain W/WO INDICATIONS: MELANOMA CONTRAST: IV CONTRAST: Gadavist ml: 10.5 TECHNIQUE: Noncontrast axial T1 spin echo, axial T2 fast spin echo, sagittal and axial FLAIR, coronal T2 fast sp in echo, axial gradient echo, axial diffusion and ADC through the brain. After the administration of contrast, axial and coronal T1 spin echo with fat saturation through the brain. COMPARISON: Numerous priors, including 08/30/2020, 03/16/2020, 10/11/2019, 04/26/2019, 08/27/2018 FINDINGS: Image quality: Excellent. CSF spaces: Basal cisterns are patent. No extra-axial fluid collections. Ventricles are normal in size and shape. Brain: Within the left basal ganglia medially, there is again seen an enhancing focus that measures up to 4 mm, as on series 1002 image 52. There is associated surrounding blooming artifact. Compared t o the prior study, this is not significantly changed. No other areas of enhancement are detected. However, several areas of susceptibility artifact are see n elsewhere, which are suspicious for areas of prior hemorrhage. No midline shift. There is cerebral volume loss for age. There is periventricular white matter grout machine operator aysha small vessel ischemic change. The brainstem appears normal. Diffusion-weighted images demonstra te no acute ischemic insults. No chronic ischemic insults. Normal intravascular flow voids are pres ent. Skull and face: Calvarial marrow is normal in signal. Orbits appear normal. Sinuses: Sinuses and mastoids appear clear. IMPRESSION: Stable solitary enhancing focus seen along the medial aspect of the left basal ganglia, which is not significantly changed compared to the prior examination. There is blooming artifact seen , which is consistent with hemorrhage. Stable areas of susceptibility artifact are seen elsewhere, which are consistent with prior hemorrhag e, although differential diagnosis would also include treated metastatic disease. Reviewed by: Grover Royal MD on 02/19/2021 1:22 PM DIYA Approved by: Grover Royal MD on 02/19/2021 1:22 PM DIYA Station ID: [id number]
--- NOTE | 2021-02-19 15:16 | CT Report ---
PROCEDURE: SOFT TISSUE NECK W INDICATIONS: MELANOMA CONTRAST: IV CONTRAST: Optiray 320 ml: 100 PO CONTRAST: Optiray 320 ml50 TECHNIQUE: After the administration of intravenous contrast, 3.0 mm axial sections acquired from the sella to th e aortic arch. Additional oblique axial 3.0 mm sections acquired through the pharynx. 3 mm thick co aspen reformats were generated. For radiation dose reduction, the following was used: automated exp osure control, adjustment of mA and/or kV according to patient size. COMPARISON: CT soft tissue neck 08/27/2018 FINDINGS: Image quality: Excellent. Lymph nodes: No enlarged lymph nodes seen throughout the neck. Vessels: Visualized vasculature appears patent. Neck spaces: The oropharynx, nasopharynx, and pharynx demonstrate no mucosal lesions. The vocal cor ds, false vocal cords, pyriform sinuses, epiglottis, vallecula, and tongue base all appear normal. E xtramucosal spaces appear unremarkable. Glands: The parotid and submandibular glands appear normal. The thyroid is not visualized. Miscellaneous: Visualized brain and orbits appear normal. Lung apices appear clear. Superficial so ft tissues appear normal. Bones: No suspicious bony lesions. Visualized sinuses and mastoids appear unremarkable. IMPRESSION: No adenopathy or evidence of tumor mass. CLINICAL RECOMMENDATION STATEMENTS: In patients <35 years with an ITN detected on CT, MRI, or extrathyroidal ultrasound, the Committee re commends further evaluation with dedicated thyroid ultrasound if the nodule is "e1 cm and has no susp icious imaging features, and if the patient has normal life expectancy. In patients "e35 years with an ITN detected on CT, MRI, or extrathyroidal ultrasound, the Committee r ecommends further evaluation with dedicated thyroid ultrasound if the nodule is "e1.5 cm and has no s uspicious imaging features, and if the patient has normal life expectancy. (ACR, 2014) Reviewed by: Rubia Perez MD on 02/19/2021 3:14 PM PDT Approved by: Rubia Perez MD on 02/19/2021 3:14 PM PDT Station ID: [id number]
[2021-02-19] MEDS ORDERED: GADOBUTROL 15 MMOL/15 ML VIAL IVP ONE (15:44)
== END 2021-02-19 07:46 | disposition home or self-care (01) ==
LOC: DI 07:45
PROVIDERS: ATTEND Internal Medicine Hematology & Oncology
DX: C43.9 Malignant melanoma of skin, unspecified (principal); K82.8 Other specified diseases of gallbladder; N28.9 Disorder of kidney and ureter, unspecified; N32.9 Bladder disorder, unspecified; K86.9 Disease of pancreas, unspecified; G93.9 Disorder of brain, unspecified
CPT/HCPCS: 70491; 70553; 71260; 74177; A9585; Q9967

== ENCOUNTER 2021-05-03 11:37 | Outpatient (CLI) | payer MEDICARE | END 2021-05-03 11:38 | disposition home or self-care (01) | LOC: LAB 11:37 | PROVIDERS: ATTEND Student in an Organized Health Care Education/Training Program | DX: E29.1 Testicular hypofunction (principal) | CPT/HCPCS: 36415; 84153; 84403 ==

== ENCOUNTER 2021-06-12 13:23 | Outpatient (CLI) | payer MEDICARE ==
[2021-06-12 14:22] LABS: CHOL/HDL RATIO 3.9 (<5.0); CHOLESTEROL 177 mg/dL; HDL CHOLESTEROL 45 mg/dL; LDL CHOLESTEROL,CALCULATED 116 mg/dL; LDL/HDL RATIO 2.6 (<3.6); TRIGLYCERIDES 78 mg/dL; VLDL CHOLESTEROL 16 mg/dL
[2021-06-12 14:45] LABS: PSA FREE 0.72 ng/mL (0.16-2.81)
[2021-06-12 14:46] LABS: PSA TOTAL 3.6 ng/mL (0.000-2.000)
== END 2021-06-12 13:24 | disposition home or self-care (01) ==
LOC: LAB.R 13:23
PROVIDERS: ATTEND Internal Medicine
DX: R97.20 Elevated prostate specific antigen [PSA] (principal); Z13.6 Encounter for screening for cardiovascular disorders
CPT/HCPCS: 80061; 83721; 84153; 84154

== ENCOUNTER 2023-04-08 11:08 | Outpatient (CLI) | payer MEDICARE ==
[2023-04-08 11:44] LABS: CHOL/HDL RATIO 3.9 (<5.0); CHOLESTEROL 217 mg/dL; HDL CHOLESTEROL 56 mg/dL; LDL CHOLESTEROL,CALCULATED 132 mg/dL; LDL/HDL RATIO 2.4 (<3.6); TRIGLYCERIDES 144 mg/dL (48-352); VLDL CHOLESTEROL 29 mg/dL
[2023-04-09 19:07] LABS: THYROGLOBULIN ANTIBODY <1.0 IU/mL (0.0-0.9); THYROGLOBULIN BY IMA <0.1 ng/mL (1.4-29.2)
== END 2023-04-08 11:09 | disposition home or self-care (01) ==
LOC: LAB 11:08
PROVIDERS: ATTEND Internal Medicine
DX: I10 Essential (primary) hypertension (principal); L57.0 Actinic keratosis; N52.9 Male erectile dysfunction, unspecified; N28.89 Other specified disorders of kidney and ureter; R97.20 Elevated prostate specific antigen [PSA]; H61.20 Impacted cerumen, unspecified ear; A41.9 Sepsis, unspecified organism; K21.9 Gastro-esophageal reflux disease without esophagitis
CPT/HCPCS: 36415; 80061; 83721; 84153; 84439; 86800

== ENCOUNTER 2023-09-16 10:26 | Outpatient (CLI) | payer MEDICARE ==
[2023-09-17 19:07] LABS: THYROGLOBULIN ANTIBODY <1.0 IU/mL (0.0-0.9)
== END 2023-09-16 10:27 | disposition home or self-care (01) ==
LOC: LAB 10:26
PROVIDERS: ATTEND Student in an Organized Health Care Education/Training Program
DX: E29.1 Testicular hypofunction (principal); Z85.850 Personal history of malignant neoplasm of thyroid
CPT/HCPCS: 36415; 81599; 84402; 84403; 84439; 86800

== ENCOUNTER 2023-12-05 14:41 | Inpatient (IN) | payer MEDICARE ==
--- NOTE | 2023-12-05 14:58 | ED Physician Documentation ---
PD HPI NVD - Stated complaint Stated Complaint: DEHYDRATION,LOW BP - Chief complaint Chief Complaint: Neuro - History obtained from History obtained from: Patient - History of Present Illness Timing - onset: How many days ago (3-4) Timing - duration: Days (3-4) Timing - details: Gradual onset, Still present Associated symptoms: No: Fever, Abdominal pain Contributing factors: Other (had dark stool diarrhea and he presumed a "stomach flu".). No: Sick contact, Bad food Improved by: No: Eating Review of Systems Constitutional: reports: Myalgias, Fatigue. denies: Fever, Chills Nose: denies: Rhinorrhea / runny nose, Congestion Throat: denies: Sore throat Cardiac: denies: Chest pain / pressure, Palpitations, Pedal edema Respiratory: reports: Dyspnea (for several days). denies: Cough GI: reports: Nausea, Diarrhea. denies: Abdominal Pain, Vomiting, Constipation PD PAST MEDICAL HISTORY - Past Medical History Cardiovascular: Hypertension, Murmur Respiratory: None Neuro: None Endocrine/Autoimmune: HyPOthyroidism GI: None : Kidney stones HEENT: Chronic vision loss Psych: None Musculoskeletal: Osteoarthritis Derm: Other (metastatic melanoma in remission. Getting PET scan? in a month for periodic review. ) - Past Surgical History Past Surgical History: Yes General: Colonoscopy, EGD, Other Cardiovascular: Other HEENT: Tonsil/Adenoidectomy, Other - Present Medications Home Medications: Ambulatory Orders Medication Instructions Recorded Confirmed Levothyroxine Sodium [Levoxyl] 25 mcg PO DAILY 08/28/15 12/05/23 Fludrocortisone [Florinef] 0.05 mg PO DAILY 07/22/18 12/05/23 Hydrocortisone 10 mg PO DAILY PM 09/24/19 12/05/23 Hydrocortisone 20 mg PO DAILY 09/24/19 12/05/23 Tadalafil [Cialis] 10 mg PO DAILY PRN 12/05/23 12/05/23 Testosterone Cypionate 150 mg IM Q14D 12/05/23 12/05/23 - Allergies Allergies/Adverse Reactions: Allergies Allergy/AdvReac Type Severity Reaction Status Date / Time nivolumab [From Opdivo] AdvReac Intermediate LOWER Verified 12/05/23 14:49 EXTREMITY PAIN morphine AdvReac Itching Verified 12/05/23 14:49 - Social History Does the pt smoke?: No Smoking Status: Never smoker Does the pt drink ETOH?: No Does the pt have substance abuse?: No - Immunizations Immunizations are current?: Yes - POLST Patient has POLST: No PD ED PE NORMAL - Vitals Vital signs reviewed: Yes (hypotensive on arrival, with improved to normosystolic after some more IV l) - General General: Alert and oriented X 3, No acute distress, Well developed/nourished - HEENT HEENT: Pharynx benign - Neck Neck: Supple, no meningeal sign, No adenopathy - Cardiac Cardiac: RRR, No murmur - Respiratory Respiratory: No respiratory distress, Clear bilaterally - Abdomen Abdomen: Soft, Non tender, Non distended - Rectal Rectal: Other (soft stool in vault that is melenotic, tests guiac positive per lab. ) - Derm Derm: Warm and dry. No: Normal color (pallor) - Extremities Extremities: No tenderness to palpate, Normal ROM s pain - Neuro Neuro: Alert and oriented X 3, No motor deficit, Normal speech Results - Vitals Vitals: Vital Signs - 24 hr 12/05/23 12/05/23 14:43 17:30 Temperature 36.5 C Heart Rate 62 65 Respiratory 22 16 Rate Blood Pressure 83/44 L 120/61 O2 Saturation 98 Oxygen O2 Source Room air - Labs Labs: Microbiology 12/05/23 15:20 Occult Blood - Final Stool - Soft Consistency Laboratory Tests 12/05/23 12/05/23 12/05/23 15:00 15:00 15:00 WBC 4.8 RBC 3.14 L Hgb 8.5 L Hct 27.9 L MCV 88.9 MCH 27.1 MCHC 30.5 L RDW 17.4 H Plt Count 148 MPV 11.5 H Neut # (Auto) 3.1 Lymph # (Auto) 0.[address] [place] # (Auto) 0.3 Eos # (Auto) 0.2 Baso # (Auto) 0.0 Absolute Nucleated RBC 0.00 Nucleated RBC % 0.0 Sodium 140 Potassium 3.3 L Chloride 109 Carbon Dioxide 25 Anion Gap 6.0 BUN 39 H Creatinine 1.2 Estimated GFR (MDRD) 59 L Glucose 133 H Calcium 8.0 L Magnesium 2.0 Total Bilirubin 0.7 AST 13 ALT 7 L Alkaline Phosphatase 30 L Total Protein 5.5 L Albumin 3.5 Globulin 2.0 L Albumin/Globulin Ratio 1.8 Lipase 25 Nasal Adenovirus (PCR) Nasal B. parapertussis DNA (PCR) Nasal Coronavir 229E PCR Nasal Coronavir HKU1 PCR Nasal Coronavir NL63 PCR Nasal Coronavir OC43 PCR Nasal Enterovir/Rhinovir PCR Nasal Influenza B PCR Nasal Influenza A PCR Nasal Parainfluen 1 PCR Nasal Parainfluen 2 PCR Nasal Parainfluen 3 PCR Nasal Parainfluen 4 PCR Nasal RSV (PCR) Nasal B.pertussis DNA PCR Nasal C.pneumoniae (PCR) Manuel Human Metapneumo PCR Nasal M.pneumoniae (PCR) Nasal SARS-CoV-2 (PCR) Blood Type Blood Type Recheck A POSITIVE Antibody Screen 12/05/23 12/05/23 12/05/23 15:05 16:11 17:53 WBC RBC Hgb 9.0 L Hct 29.9 L MCV MCH MCHC RDW Plt Count MPV Neut # (Auto) Lymph # (Auto) [place] # (Auto) Eos # (Auto) Baso # (Auto) Absolute Nucleated RBC Nucleated RBC % Sodium Potassium Chloride Carbon Dioxide Anion Gap BUN Creatinine Estimated GFR (MDRD) Glucose Calcium Magnesium Total Bilirubin AST ALT Alkaline Phosphatase Total Protein Albumin Globulin Albumin/Globulin Ratio Lipase Nasal Adenovirus (PCR) NOT DETECTED Nasal B. parapertussis DNA (PCR) NOT DETECTED Nasal Coronavir 229E PCR NOT DETECTED Nasal Coronavir HKU1 PCR NOT DETECTED Nasal Coronavir NL63 PCR NOT DETECTED Nasal Coronavir OC43 PCR NOT DETECTED Nasal Enterovir/Rhinovir PCR NOT DETECTED Nasal Influenza B PCR NOT DETECTED Nasal Influenza A PCR NOT DETECTED Nasal Parainfluen 1 PCR NOT DETECTED Nasal Parainfluen 2 PCR NOT DETECTED Nasal Parainfluen 3 PCR NOT DETECTED Nasal Parainfluen 4 PCR NOT DETECTED Nasal RSV (PCR) NOT DETECTED Nasal B.pertussis DNA PCR NOT DETECTED Nasal C.pneumoniae (PCR) NOT DETECTED Manuel Human Metapneumo PCR NOT DETECTED Nasal M.pneumoniae (PCR) NOT DETECTED Nasal SARS-CoV-2 (PCR) NOT DETECTED Blood Type A POSITIVE Blood Type Recheck Antibody Screen NEGATIVE PD Medical Decision Making - ED course Complexity details: reviewed results (low BP with notable drop from August to now of Hgb 15 to 8.5, presumedly mainly in past 3 days, associated with hypotension today and near syncope. ), considered differential (he has had diarrhea (soft dark stool) for 3-4 days, associated with nausea. No emesis. No abd pain. Greadually weaker over few days. [place] ROSA, no CP. Today had syncope with standing. BP low in 80s systolic by EMS and at [facility]. Presume upper GI bleeding.), d/w patient - Critical Care Time(min): 40 Comments: hypotensive initially with IV fluids, repeat labs, eval for causes. Time Includes: Direct patient care, Reassess patient, Document care, Coordinate care Data interpretation: Labs, Pulse ox Departure - Departure Disposition: ED Place in Observation Clinical Impression: Acute upper GI bleed, Transient hypotension, Anemia due to acute blood loss, Near syncope Condition: Stable Discharge Date/Time: 12/05/23 18:47
[2023-12-05] MEDS: SODIUM CHLORIDE 0.9% 1,000 ML IV STA (15:41)
[2023-12-05] MEDS: PANTOPRAZOLE 40 MG VIAL IVP STA (15:42)
[2023-12-05 15:49] LABS: BASOPHILS % (AUTO) 0.8 %; EOSINOPHILS # (AUTO) 0.2 10^3/uL (0.0-0.7); EOSINOPHILS % (AUTO) 4.6 %; HCT - HEMATOCRIT 27.9 % (42.0-52.0); HGB - HEMOGLOBIN 8.5 g/dL (14.0-18.0); LYMPHOCYTES # (AUTO) 0.9 10^3/uL (1.5-3.5); LYMPHOCYTES % (AUTO) 18.5 %; MEAN CORPUSCULAR HEMOGLOBIN 27.1 pg (27.0-31.0); MEAN CORPUSCULAR HGB CONC 30.5 g/dL (32.0-36.0); MEAN CORPUSCULAR VOLUME 88.9 fL (80.0-94.0); MEAN PLATELET VOLUME 11.5 fL (7.4-11.4); MONOCYTES # (AUTO) 0.3 10^3/uL (0.0-1.0); MONOCYTES % (AUTO) 6.5 %; NEUTROPHILS # (AUTO) 3.1 10^3/uL (1.5-6.6); NEUTROPHILS % (AUTO) 65.4 %; PLT - PLATELET COUNT 148 10^3/uL (130-450); RED BLOOD COUNT 3.14 10^6/uL (4.70-6.10); RED CELL DISTRIBUTION WIDTH 17.4 % (12.0-15.0); WHITE BLOOD COUNT 4.8 x10^3/uL (4.8-10.8)
[2023-12-05 15:58] LABS: ALBUMIN 3.5 g/dL (3.2-5.5); ALBUMIN/GLOBULIN RATIO 1.8 (1.0-2.2); BILIRUBIN,TOTAL 0.7 mg/dL (0.2-1.0); CREATININE 1.2 mg/dL (0.6-1.3); POTASSIUM 3.3 mmol/L (3.5-4.5); TOTAL PROTEIN 5.5 g/dL (6.4-8.9)
[2023-12-05 16:57] LABS: CORONAVIRUS 229E-RESP PCR NOT DETECTED; CORONAVIRUS HKU1-RESP PCR NOT DETECTED; CORONAVIRUS NL63-RESP PCR NOT DETECTED; CORONAVIRUS OC43-RESP PCR NOT DETECTED; HUMAN METAPNEUMOVIRUS NOT DETECTED; INFLUENZA A- RESP PCR PANEL NOT DETECTED; INFLUENZA B - RESP PCR PANEL NOT DETECTED; PARAINFLUENZA VIRUS 1 NOT DETECTED; RHINOVIRUS/ENTEROVIRUS NOT DETECTED; SARS-CoV-2 -RESP PCR PANEL NOT DETECTED
[2023-12-05 16:58] LABS: B. PARAPERTUSSIS- RESP PCR PAN NOT DETECTED; B. PERTUSSIS- RESP PCR PANEL NOT DETECTED; C. PNEUMONIAE- RESP PCR PANEL NOT DETECTED; M. PNEUMONIAE- RESP PCR PANEL NOT DETECTED; PARAINFLUENZA VIRUS 2 NOT DETECTED; PARAINFLUENZA VIRUS 3 NOT DETECTED; PARAINFLUENZA VIRUS 4 NOT DETECTED; RSV- RESP PCR PANEL NOT DETECTED
[2023-12-05 17:58] LABS: HCT - HEMATOCRIT 29.9 % (42.0-52.0)
--- NOTE | 2023-12-05 17:58 | HISTORY & PHYSICAL EXAMINATION ---
Chief Complaint - Chief Complaint Chief Complaint: Diarrhea and malaise History of Present Illness - Admitted From Admitted From:: ED - History Obtained From Records Reviewed: last oncology note History obtained from: PAtient and - History of Present Illness HPI Comment/Other: 77-year-old gentleman who presents to the emergency department after initially presenting to walk-in clinic and was noted to have hypotension. Has a 4-day history of diarrhea and nausea. Notes that his stools have been rather dark with increasing weakness and malaise as the week has gone on. 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 He is currently in remission with his last dose of chemotherapy on February 25, 2023. He gets either a PET scan or a CT/MRI every 3 months he is due for a PET scan later this month in [place]. He has a history of chemotherapy induced adrenal insufficiency for which she takes hydrocortisone 10 mg at at bedtime and 20 mg in the morning as well as Florinef 0.05 mg daily. He takes an 81 mg aspirin every day for DVT prophylaxis. He does not take any NSAIDs. He does not drink alcohol. He does not smoke cigarettes. With regards to his CODE STATUS he request to be full code and full care. His is his medical decision-maker. Had an EGD and colonoscopy in 2019 as part of his workup related to his melanoma. He was diagnosed with his melanoma in December 2017. History - Past Medical History Cardiovascular: reports: Hypertension, Murmur Respiratory: reports: None Neuro: reports: None Endocrine/Autoimmune: reports: HyPOthyroidism GI: reports: None : reports: Kidney stones HEENT: reports: Chronic vision loss Psych: reports: None Musculoskeletal: reports: Osteoarthritis Derm: reports: Other MRSA Hx?: No - Past Surgical History General: reports: Colonoscopy, EGD, Other Cardiovascular: reports: Other HEENT: reports: Tonsil/Adenoidectomy, Other - Family & Social History Family History Comment/Other: mother and four aunts had lung cancer. They were all smokers. An uncle had leukemia Living arrangement: At home Living Situation: With spouse/s.o. Social History Notes: He denies alcohol, tobacco or illicit drug use - Substance History Use: Uses substance without health or social issues: NONE - POLST Patient has POLST: No POLST Status: Full Code Meds/Allgy - Home Medications Home Medications: Ambulatory Orders Medication Instructions Recorded Confirmed Levothyroxine Sodium [Levoxyl] 88 mcg PO DAILY 08/28/15 11/18/23 Fludrocortisone [Florinef] 0.05 mg PO DAILY 07/22/18 11/18/23 Hydrocortisone 10 mg PO DAILY PM 09/24/19 11/18/23 Hydrocortisone 20 mg PO DAILY 09/24/19 11/18/23 Tadalafil [Cialis] 10 mg PO DAILY PRN 12/05/23 12/05/23 Testosterone Cypionate 150 mg IM Q14D 12/05/23 12/05/23 - Allergies Allergies/Adverse Reactions: Allergies Allergy/AdvReac Type Severity Reaction Status Date / Time nivolumab [From Opdivo] AdvReac Intermediate LOWER Verified 12/05/23 14:49 EXTREMITY PAIN morphine AdvReac Itching Verified 12/05/23 14:49 Review of Systems - Constitutional Constitutional: reports: Fatigue, Malaise, Weakness - Eyes Eyes: denies: Pain - Ears, Nose & Throat Ears, Nose & Throat: denies: Ear pain, Tinnitus, Vertigo - Cardiovascular Cariovascular: denies: Irregular heart rate, Palpitations - Respiratory Respiratory: denies: Cough, Wheezing, Orthopnea - Gastrointestinal Gastrointestinal: reports: Black stools, Nausea. denies: Abdominal pain - Genitourinary Genitourinary: denies: Dysuria - Musculoskeletal Musculoskeletal: denies: Muscle pain - Integumentary Integumentary: denies: Rash - Neurological Neurological: reports: General weakness - Psychiatric Psychiatric: denies: Depression - Endocrine Endocrine: denies: Polyuria, Polydypsia - Hematologic/Lymphatic Hematologic/Lymphatic: denies: Blood clots - All Other Systems All Other Systems: reports: Reviewed and negative Prior Level of Functionality: Independent in ADLs. Does not describe himself is particularly active. He enjoys keeping his lawn free of dandelions Exam - Vital Signs Vital Signs: Vital Signs x48h Temp Pulse Resp BP Pulse Ox 12/05/23 17:30 65 16 120/61 12/05/23 14:43 36.5 C 62 22 83/44 L 98 - Physical Exam General Appearance: positive: No acute distress, Alert Eyes Bilateral: positive: Normal inspection ENT: positive: ENT inspection nml Neck: positive: Nml inspection, Trachea midline Respiratory: positive: Chest non-tender, No respiratory distress, Breath sounds nml Cardiovascular: positive: Regular rate & rhythm Peripheral Pulses: positive: 2+ Abdomen: positive: Non-tender, Other (obese, intact bowel sounds) Rectal: positive: Stool - heme POS Back: positive: Nml inspection Skin: positive: Color nml, Other (skin tear left forearm) Extremities: positive: Non-tender Neurologic/Psychiatric: positive: Oriented x3 Sepsis Event Note (H) - Evaluation Current Stage of Sepsis: Ruled out Conclusion/Plan - Problem List (1) Acute upper GI bleed Conclusion/Plan: The patient with development of anemia presumably over the course of this week with GI bleeding. He presents with hypotension which is resolved with administration of IV fluids. I anticipate that we will check serial hemoglobins I have ordered 2 for the next 12 hours. I have spoken with Dr. Huynh on-call surgeon so that he is aware of this patient. Patient is typed and crossed and will be given blood if he needs it. Patient is placed on Protonix IV twice daily. We will hold his aspirin. We will do mechanical DVT prophylaxis only. I will keep him on clear liquid diet for the possible situation where he would need to be emergently scoped. (2) Anemia due to acute blood loss Conclusion/Plan: Hemoglobin 15.6 in August of this year at [facility]. Hemoglobin currently 8.1. Patient has been symptomatic with this. 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 He will be transfused for hemoglobin of 6 or less. He has been typed and crossed in the emergency department. He will be given maintenance fluids overnight. (3) Adrenal insufficiency Conclusion/Plan: Related to complications for treatment for stage IV metastatic melanoma. His home dosing is hydrocortisone 20 mg every a.m., 10 mg every p.m. with Florinef 0.05 mg. I have doubled his hydrocortisone dosing. (4) Metastatic melanoma Conclusion/Plan: History of metastatic melanoma. Part of the workup for this was an EGD and colonoscopy at [facility] in 2018 which were reportedly clear. He gets either a CT/MRI of his body or PET scan every 3 months he is due for a PET scan later this month. He follows with oncology his last visit was in October 2023. According to this note he has metastatic melanoma involving the right chest wall, lungs, lymph nodes, brain, liver and gallbladder. His last chemotherapy was on February 25, 2023 and he is doing well without evidence of recurrence. 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 Need confirmation of Synthroid dose before ordering here in the hospital. Qualifiers: Hypothyroidism type: postoperative Qualified Code(s): E89.0 - Postprocedural hypothyroidism (6) Hypokalemia Conclusion/Plan: I have ordered LR for maintenance fluids as this has some potassium in it. Additionally will give him just 10 mill equivalents of IV potassium for a potassium of 3.3 on admission. - Lab Results Fish Bones: 12/05/23 17:53 12/05/23 15:00
[2023-12-05] MEDS ORDERED: SODIUM CHLORIDE FLUSH 0.9% 10 ML SYRINGE IVP PRN (18:04)
[2023-12-05] MEDS ORDERED: ACETAMINOPHEN 325 MG TABLET PO PRN (18:04)
[2023-12-05] MEDS: POTASSIUM CHLOR 10 MEQ/100 ML 10 MEQ/100 ML BAG IV ONE (19:41)
[2023-12-05] MEDS: LACTATED RINGERS 1,000 ML IV SCH (19:42)
[2023-12-05] MEDS: HYDROCORTISONE 10 MG TABLET PO SCH (20:31)
[2023-12-05] MEDS: PANTOPRAZOLE 40 MG VIAL IVP SCH (20:32)
[2023-12-06] MEDS: SODIUM CHLORIDE FLUSH 0.9% 10 ML SYRINGE IVP SCH (01:29)
[2023-12-06 05:16] LABS: BASOPHILS % (AUTO) 0.8 %; EOSINOPHILS # (AUTO) 0.2 10^3/uL (0.0-0.7); EOSINOPHILS % (AUTO) 5.1 %; HCT - HEMATOCRIT 27.1 % (42.0-52.0); HGB - HEMOGLOBIN 8.3 g/dL (14.0-18.0); LYMPHOCYTES # (AUTO) 0.6 10^3/uL (1.5-3.5); MEAN CORPUSCULAR HEMOGLOBIN 27.4 pg (27.0-31.0); MEAN CORPUSCULAR HGB CONC 30.6 g/dL (32.0-36.0); MEAN CORPUSCULAR VOLUME 89.4 fL (80.0-94.0); MEAN PLATELET VOLUME 11.5 fL (7.4-11.4); MONOCYTES # (AUTO) 0.3 10^3/uL (0.0-1.0); MONOCYTES % (AUTO) 7.4 %; NEUTROPHILS # (AUTO) 2.6 10^3/uL (1.5-6.6); NEUTROPHILS % (AUTO) 66.4 %; PLT - PLATELET COUNT 118 10^3/uL (130-450); RED BLOOD COUNT 3.03 10^6/uL (4.70-6.10); RED CELL DISTRIBUTION WIDTH 17.5 % (12.0-15.0); WHITE BLOOD COUNT 3.9 x10^3/uL (4.8-10.8)
[2023-12-06 05:33] LABS: CALCIUM 7.5 mg/dL (8.5-10.3); POTASSIUM 3.4 mmol/L (3.5-4.5)
[2023-12-06] MEDS: HYDROCORTISONE SUCCINATE 100 MG/2 ML VIAL IVP SCH (07:55)
[2023-12-06] MEDS: LACTATED RINGERS 1,000 ML IV ONE (07:55)
[2023-12-06] MEDS ORDERED: HYDROCORTISONE 10 MG TABLET PO SCH (08:00)
[2023-12-06 08:26] LABS: HCT - HEMATOCRIT 25.8 % (42.0-52.0); HGB - HEMOGLOBIN 7.8 g/dL (14.0-18.0)
[2023-12-06] MEDS: FLUDROCORTISONE 0.1 MG TABLET PO SCH (08:34)
[2023-12-06] MEDS: LEVOTHYROXINE 25 MCG TABLET PO SCH (08:34)
[2023-12-06] MEDS ORDERED: FLUDROCORTISONE 0.1 MG TABLET PO SCH (09:00)
[2023-12-06 10:02] LABS: ESTIMATED AVERAGE GLUCOSE 100 mg/dL (70-100); HEMOGLOBIN A1c% 5.1 % (4.27-6.07)
--- NOTE | 2023-12-06 11:10 | PHARMACY PROGRESS NOTE ---
- Best Possible Medication History Admit Date and Time: 12/05/23 1804 Processed by: Pharmacy Secondary Source(s): Pharmacy records (COMPLETED 12/05/23 UPON ATTEMPT 12/06/23), Insurance records As the person ultimately responsible for medication therapy, providers are able to order a medication from an existing home medication list in [facility] via the "Reconcile Routine" prior to Confirmation of that medication by data support analyst. Such practice is discouraged except when the physician, in their clinical judgment, deems that a medical need exists for a medication without regard to previous use.
--- NOTE | 2023-12-06 15:28 | PROVIDER PROGRESS NOTE ---
Subjective - Prog Note Date Prog Note Date: 12/06/23 Prog Note Time: 15:28 - Subjective Pt reports feeling: No change Subjective: He denied having any melena overnight and had no abdominal pain, nausea, vomiting. This morning though he was noted to be hypotensive in the 60s after he got up into the his chair. His only complaint was fatigue however he denied having any dizziness, chest pain, diaphoresis, nausea, etc. questioning him further about his home Cortef and fludrocortisone, he indicates that since he had not been feeling well, he has not taken those medications since 12/02/2023. He was not aware that he had to continue taking those medications even if not feeling well. He was given 1 L LR bolus along with 100 mg IV Solu-Cortef which improved his hypotension rapidly. Objective - Vital Signs/Intake & Output Reviewed Vital Signs: Yes Vital Signs: Vital Signs x48h Temp Pulse Resp BP BP Pulse Ox 12/06/23 10:36 112/66 12/06/23 09:10 101/49 L 12/06/23 07:32 36.6 C 73 16 60/42 L 90 L Intake & Output: Intake & Output 12/03/23 12/04/23 12/05/23 12/06/23 23:59 23:59 23:59 23:59 Intake Total 1100 2768.333 Balance 1100 2768.333 - Objective General Appearance: positive: Other (Appears pale and fatigued but no acute distress and he is alert/oriented.) Eyes Bilateral: positive: Normal inspection, PERRL, EOMI ENT: positive: ENT inspection nml, Pharynx nml, No signs of dehydration Neck: positive: Nml inspection, Thyroid nml, No JVD, Trachea midline Respiratory: positive: Chest non-tender, No respiratory distress, Breath sounds nml. negative: Wheezes, Rales, Rhonchi Cardiovascular: positive: Regular rate & rhythm, No murmur, No gallop Peripheral Pulses: 2+ Dorsalis pedis (R), 2+ Dorsalis pedis (L) Abdomen: positive: Non-tender, No organomegaly, Nml bowel sounds, No distention Back: positive: Nml inspection Skin: positive: No rash, Warm, Dry, Pallor Extremities: positive: No pedal edema Neurologic/Psychiatric: positive: Oriented x3, CN's nml (2-12), Motor nml, Sensation nml - Lab Results Fish Bones: 12/06/23 08:17 12/06/23 04:21 Other Labs: Lab Results x24hrs 12/06/23 12/06/23 12/06/23 Range/Units 08:17 08:17 04:21 WBC (4.8-10.8) x10^3/uL RBC (4.70-6.10) 10^6/uL Hgb 7.8 L (14.0-18.0) g/dL Hct 25.8 L (42.0-52.0) % MCV (80.0-94.0) fL MCH (27.0-31.0) pg MCHC (32.0-36.0) g/dL RDW (12.0-15.0) % Plt Count (130-450) 10^3/uL MPV (7.4-11.4) fL Neut # (Auto) (1.5-6.6) 10^3/uL Lymph # (Auto) (1.5-3.5) 10^3/uL [place] # (Auto) (0.0-1.0) 10^3/uL Eos # (Auto) (0.0-0.7) 10^3/uL Baso # (Auto) (0.0-0.1) 10^3/uL Absolute Nucleated RBC x10^3/uL Nucleated RBC % /100WBC Sodium (135-145) mmol/L Potassium (3.5-4.5) mmol/L Chloride (101-111) mmol/L Carbon Dioxide (21-32) mmol/L Anion Gap (6-13) BUN (6-20) mg/dL Creatinine (0.6-1.3) mg/dL Estimated GFR (MDRD) (>89) Glucose (74-104) mg/dL Estimat Average Glucose 100 (70-100) mg/dL Hemoglobin A1c % 5.1 (4.27-6.07) % Lactic Acid 1.0 (0.5-2.2) mmol/L Calcium (8.5-10.3) mg/dL Magnesium (1.7-2.3) mg/dL Total Bilirubin (0.2-1.0) mg/dL AST (10-42) IU/L ALT (10-60) IU/L Alkaline Phosphatase (42-121) IU/L Total Protein (6.4-8.9) g/dL Albumin (3.2-5.5) g/dL Globulin (2.1-4.2) g/dL Albumin/Globulin Ratio (1.0-2.2) Lipase (11-82) U/L Nasal Adenovirus (PCR) Nasal B. parapertussis DNA (PCR) Nasal Coronavir 229E PCR Nasal Coronavir HKU1 PCR Nasal Coronavir NL63 PCR Nasal Coronavir OC43 PCR Nasal Enterovir/Rhinovir PCR Nasal Influenza B PCR Nasal Influenza A PCR Nasal Parainfluen 1 PCR Nasal Parainfluen 2 PCR Nasal Parainfluen 3 PCR Nasal Parainfluen 4 PCR Nasal RSV (PCR) Nasal B.pertussis DNA PCR Nasal C.pneumoniae (PCR) Manuel Human Metapneumo PCR Nasal M.pneumoniae (PCR) Nasal SARS-CoV-2 (PCR) Blood Type Blood Type Recheck Antibody Screen 12/06/23 12/06/23 12/06/23 Range/Units 04:21 04:21 01:38 WBC 3.9 L (4.8-10.8) x10^3/uL RBC 3.03 L (4.70-6.10) 10^6/uL Hgb 8.3 L 7.9 L (14.0-18.0) g/dL Hct 27.1 L (42.0-52.0) % MCV 89.4 (80.0-94.0) fL MCH 27.4 (27.0-31.0) pg MCHC 30.6 L (32.0-36.0) g/dL RDW 17.5 H (12.0-15.0) % Plt Count 118 L (130-450) 10^3/uL MPV 11.5 H (7.4-11.4) fL Neut # (Auto) 2.6 (1.5-6.6) 10^3/uL Lymph # (Auto) 0.6 L (1.5-3.5) 10^3/uL [place] # (Auto) 0.3 (0.0-1.0) 10^3/uL Eos # (Auto) 0.2 (0.0-0.7) 10^3/uL Baso # (Auto) 0.0 (0.0-0.1) 10^3/uL Absolute Nucleated RBC 0.00 x10^3/uL Nucleated RBC % 0.0 /100WBC Sodium 141 (135-145) mmol/L Potassium 3.4 L (3.5-4.5) mmol/L Chloride 111 (101-111) mmol/L Carbon Dioxide 23 (21-32) mmol/L Anion Gap 7.0 (6-13) BUN 30 H (6-20) mg/dL Creatinine 1.0 (0.6-1.3) mg/dL Estimated GFR (MDRD) 73 L (>89) Glucose 76 (74-104) mg/dL Estimat Average Glucose (70-100) mg/dL Hemoglobin A1c % (4.27-6.07) % Lactic Acid (0.5-2.2) mmol/L Calcium 7.5 L (8.5-10.3) mg/dL Magnesium (1.7-2.3) mg/dL Total Bilirubin (0.2-1.0) mg/dL AST (10-42) IU/L ALT (10-60) IU/L Alkaline Phosphatase (42-121) IU/L Total Protein (6.4-8.9) g/dL Albumin (3.2-5.5) g/dL Globulin (2.1-4.2) g/dL Albumin/Globulin Ratio (1.0-2.2) Lipase (11-82) U/L Nasal Adenovirus (PCR) Nasal B. parapertussis DNA (PCR) Nasal Coronavir 229E PCR Nasal Coronavir HKU1 PCR Nasal Coronavir NL63 PCR Nasal Coronavir OC43 PCR Nasal Enterovir/Rhinovir PCR Nasal Influenza B PCR Nasal Influenza A PCR Nasal Parainfluen 1 PCR Nasal Parainfluen 2 PCR Nasal Parainfluen 3 PCR Nasal Parainfluen 4 PCR Nasal RSV (PCR) Nasal B.pertussis DNA PCR Nasal C.pneumoniae (PCR) Manuel Human Metapneumo PCR Nasal M.pneumoniae (PCR) Nasal SARS-CoV-2 (PCR) Blood Type Blood Type Recheck Antibody Screen 12/05/23 12/05/23 12/05/23 Range/Units 19:57 17:53 16:11 WBC (4.8-10.8) x10^3/uL RBC (4.70-6.10) 10^6/uL Hgb 8.7 L 9.0 L (14.0-18.0) g/dL Hct 29.9 L (42.0-52.0) % MCV (80.0-94.0) fL MCH (27.0-31.0) pg MCHC (32.0-36.0) g/dL RDW (12.0-15.0) % Plt Count (130-450) 10^3/uL MPV (7.4-11.4) fL Neut # (Auto) (1.5-6.6) 10^3/uL Lymph # (Auto) (1.5-3.5) 10^3/uL [place] # (Auto) (0.0-1.0) 10^3/uL Eos # (Auto) (0.0-0.7) 10^3/uL Baso # (Auto) (0.0-0.1) 10^3/uL Absolute Nucleated RBC x10^3/uL Nucleated RBC % /100WBC Sodium (135-145) mmol/L Potassium (3.5-4.5) mmol/L Chloride (101-111) mmol/L Carbon Dioxide (21-32) mmol/L Anion Gap (6-13) BUN (6-20) mg/dL Creatinine (0.6-1.3) mg/dL Estimated GFR (MDRD) (>89) Glucose (74-104) mg/dL Estimat Average Glucose (70-100) mg/dL Hemoglobin A1c % (4.27-6.07) % Lactic Acid (0.5-2.2) mmol/L Calcium (8.5-10.3) mg/dL Magnesium (1.7-2.3) mg/dL Total Bilirubin (0.2-1.0) mg/dL AST (10-42) IU/L ALT (10-60) IU/L Alkaline Phosphatase (42-121) IU/L Total Protein (6.4-8.9) g/dL Albumin (3.2-5.5) g/dL Globulin (2.1-4.2) g/dL Albumin/Globulin Ratio (1.0-2.2) Lipase (11-82) U/L Nasal Adenovirus (PCR) Nasal B. parapertussis DNA (PCR) Nasal Coronavir 229E PCR Nasal Coronavir HKU1 PCR Nasal Coronavir NL63 PCR Nasal Coronavir OC43 PCR Nasal Enterovir/Rhinovir PCR Nasal Influenza B PCR Nasal Influenza A PCR Nasal Parainfluen 1 PCR Nasal Parainfluen 2 PCR Nasal Parainfluen 3 PCR Nasal Parainfluen 4 PCR Nasal RSV (PCR) Nasal B.pertussis DNA PCR Nasal C.pneumoniae (PCR) Manuel Human Metapneumo PCR Nasal M.pneumoniae (PCR) Nasal SARS-CoV-2 (PCR) Blood Type A POSITIVE Blood Type Recheck Antibody Screen NEGATIVE 12/05/23 12/05/23 12/05/23 Range/Units 15:05 15:00 15:00 WBC (4.8-10.8) x10^3/uL RBC (4.70-6.10) 10^6/uL Hgb (14.0-18.0) g/dL Hct (42.0-52.0) % MCV (80.0-94.0) fL MCH (27.0-31.0) pg MCHC (32.0-36.0) g/dL RDW (12.0-15.0) % Plt Count (130-450) 10^3/uL MPV (7.4-11.4) fL Neut # (Auto) (1.5-6.6) 10^3/uL Lymph # (Auto) (1.5-3.5) 10^3/uL [place] # (Auto) (0.0-1.0) 10^3/uL Eos # (Auto) (0.0-0.7) 10^3/uL Baso # (Auto) (0.0-0.1) 10^3/uL Absolute Nucleated RBC x10^3/uL Nucleated RBC % /100WBC Sodium 140 (135-145) mmol/L Potassium 3.3 L (3.5-4.5) mmol/L Chloride 109 (101-111) mmol/L Carbon Dioxide 25 (21-32) mmol/L Anion Gap 6.0 (6-13) BUN 39 H (6-20) mg/dL Creatinine 1.2 (0.6-1.3) mg/dL Estimated GFR (MDRD) 59 L (>89) Glucose 133 H (74-104) mg/dL Estimat Average Glucose (70-100) mg/dL Hemoglobin A1c % (4.27-6.07) % Lactic Acid (0.5-2.2) mmol/L Calcium 8.0 L (8.5-10.3) mg/dL Magnesium 2.0 (1.7-2.3) mg/dL Total Bilirubin 0.7 (0.2-1.0) mg/dL AST 13 (10-42) IU/L ALT 7 L (10-60) IU/L Alkaline Phosphatase 30 L (42-121) IU/L Total Protein 5.5 L (6.4-8.9) g/dL Albumin 3.5 (3.2-5.5) g/dL Globulin 2.0 L (2.1-4.2) g/dL Albumin/Globulin Ratio 1.8 (1.0-2.2) Lipase 25 (11-82) U/L Nasal Adenovirus (PCR) NOT DETECTED Nasal B. parapertussis DNA (PCR) NOT DETECTED Nasal Coronavir 229E PCR NOT DETECTED Nasal Coronavir HKU1 PCR NOT DETECTED Nasal Coronavir NL63 PCR NOT DETECTED Nasal Coronavir OC43 PCR NOT DETECTED Nasal Enterovir/Rhinovir PCR NOT DETECTED Nasal Influenza B PCR NOT DETECTED Nasal Influenza A PCR NOT DETECTED Nasal Parainfluen 1 PCR NOT DETECTED Nasal Parainfluen 2 PCR NOT DETECTED Nasal Parainfluen 3 PCR NOT DETECTED Nasal Parainfluen 4 PCR NOT DETECTED Nasal RSV (PCR) NOT DETECTED Nasal B.pertussis DNA PCR NOT DETECTED Nasal C.pneumoniae (PCR) NOT DETECTED Manuel Human Metapneumo PCR NOT DETECTED Nasal M.pneumoniae (PCR) NOT DETECTED Nasal SARS-CoV-2 (PCR) NOT DETECTED Blood Type Blood Type Recheck A POSITIVE Antibody Screen 12/05/23 Range/Units 15:00 WBC 4.8 (4.8-10.8) x10^3/uL RBC 3.14 L (4.70-6.10) 10^6/uL Hgb 8.5 L (14.0-18.0) g/dL Hct 27.9 L (42.0-52.0) % MCV 88.9 (80.0-94.0) fL MCH 27.1 (27.0-31.0) pg MCHC 30.5 L (32.0-36.0) g/dL RDW 17.4 H (12.0-15.0) % Plt Count 148 (130-450) 10^3/uL MPV 11.5 H (7.4-11.4) fL Neut # (Auto) 3.1 (1.5-6.6) 10^3/uL Lymph # (Auto) 0.9 L (1.5-3.5) 10^3/uL [place] # (Auto) 0.3 (0.0-1.0) 10^3/uL Eos # (Auto) 0.2 (0.0-0.7) 10^3/uL Baso # (Auto) 0.0 (0.0-0.1) 10^3/uL Absolute Nucleated RBC 0.00 x10^3/uL Nucleated RBC % 0.0 /100WBC Sodium (135-145) mmol/L Potassium (3.5-4.5) mmol/L Chloride (101-111) mmol/L Carbon Dioxide (21-32) mmol/L Anion Gap (6-13) BUN (6-20) mg/dL Creatinine (0.6-1.3) mg/dL Estimated GFR (MDRD) (>89) Glucose (74-104) mg/dL Estimat Average Glucose (70-100) mg/dL Hemoglobin A1c % (4.27-6.07) % Lactic Acid (0.5-2.2) mmol/L Calcium (8.5-10.3) mg/dL Magnesium (1.7-2.3) mg/dL Total Bilirubin (0.2-1.0) mg/dL AST (10-42) IU/L ALT (10-60) IU/L Alkaline Phosphatase (42-121) IU/L Total Protein (6.4-8.9) g/dL Albumin (3.2-5.5) g/dL Globulin (2.1-4.2) g/dL Albumin/Globulin Ratio (1.0-2.2) Lipase (11-82) U/L Nasal Adenovirus (PCR) Nasal B. parapertussis DNA (PCR) Nasal Coronavir 229E PCR Nasal Coronavir HKU1 PCR Nasal Coronavir NL63 PCR Nasal Coronavir OC43 PCR Nasal Enterovir/Rhinovir PCR Nasal Influenza B PCR Nasal Influenza A PCR Nasal Parainfluen 1 PCR Nasal Parainfluen 2 PCR Nasal Parainfluen 3 PCR Nasal Parainfluen 4 PCR Nasal RSV (PCR) Nasal B.pertussis DNA PCR Nasal C.pneumoniae (PCR) Manuel Human Metapneumo PCR Nasal M.pneumoniae (PCR) Nasal SARS-CoV-2 (PCR) Blood Type Blood Type Recheck Antibody Screen Sepsis Event Note (H) - Evaluation Current Stage of Sepsis: Ruled out Assessment/Plan - Problem List (1) Acute upper GI bleed Impression: In the ED 4 days prior to admission he had been having nausea and diarrhea with dark/black stools. This was associated with increased weakness, malaise but denies any acid reflux. -Holding home aspirin. -Continue IV Protonix 40 mg twice daily. -Hemoglobin has remained stable overnight. Not likely to be acutely bleeding. -Will need to discuss timing of possible EGD with surgery however need to address his hypotension/adrenal crisis as noted below. (2) Anemia due to acute blood loss Impression: His baseline hemoglobin is in the 15-16 range with the last hemoglobin in our system checked on 09/16/2023 and it was 15.6 at that time. At presentation to the ER his hemoglobin was 8.5. -Treating acute upper GI bleed as noted above. -Hemoglobin has remained essentially stable during his stay thus far ranging from 7.9-9.0. -They have not witnessed any ongoing melena or other bleeding issues during his stay thus far. -Transfuse for hemoglobin less than 7. -Check iron panel. 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 He is supposed to take hydrocortisone 20 mg in the morning and 10 mg in the evening with Florinef 0.05 mg. He has not been taking that for the past 4 days as he was feeling unwell and did not think that he should take medications. -His hypotension on presentation and significant hypotension this morning is likely secondary to adrenal crisis. -Placed on 100 mg IV Solu-Cortef 3 times daily for now. If he responds appropriately can decrease to 50 mg 3 times daily tomorrow. -Increase home fludrocortisone to 0.1 mg daily. (4) Hypothyroidism Impression: This is secondary to his panhypopituitarism as noted above. -Resume home Synthroid. Qualifiers: Hypothyroidism type: due to medication Qualified Code(s): E03.2 - Hypothyroidism due to medicaments and other exogenous substances (5) Metastatic melanoma Impression: Has a history of metastatic melanoma and apparently had undergone an EGD/colonoscopy at the [facility] in 2019 which were reportedly clear. He gets a CT/MRI or PET scan every 3 months and is status post immunotherapy in the past. The immunotherapy did cause panhypopituitarism as noted above. He follows closely with oncology with his last visit in October of this year. His melanoma is metastatic to the right chest wall, lungs, lymph nodes, brain, liver and gallbladder. -No active oncologic issues at this time. 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 -Treat adrenal and hypothyroid issues as noted above. -Can hold home testosterone for now.
[2023-12-06] MEDS: POTASSIUM CHLORIDE 20 MEQ TABLET PO ONE (17:13)
[2023-12-06 17:23] LABS: ABSOLUTE RETICS # AUTO 0.106 10^6/uL (0.020-0.110); HCT - HEMATOCRIT 29.6 % (42.0-52.0); HGB - HEMOGLOBIN 9.3 g/dL (14.0-18.0); RED BLOOD COUNT 3.34 10^6/uL (4.70-6.10); RETICULOCYTE COUNT % (AUTO) 3.16 % (0.5-2.3)
[2023-12-06 17:53] LABS: THYROID STIMULATING HORMONE 0.17 uIU/mL (0.34-5.60)
[2023-12-06 18:02] LABS: FERRITIN 20.4 ng/mL (23.9-336.2)
[2023-12-07 05:07] LABS: BASOPHILS % (AUTO) 0.2 %; EOSINOPHILS % (AUTO) 0.1 %; HGB - HEMOGLOBIN 8.3 g/dL (14.0-18.0); LYMPHOCYTES # (AUTO) 0.4 10^3/uL (1.5-3.5); LYMPHOCYTES % (AUTO) 4.4 %; MEAN CORPUSCULAR HEMOGLOBIN 27.1 pg (27.0-31.0); MEAN CORPUSCULAR HGB CONC 30.7 g/dL (32.0-36.0); MEAN CORPUSCULAR VOLUME 88.2 fL (80.0-94.0); MEAN PLATELET VOLUME 11.7 fL (7.4-11.4); MONOCYTES # (AUTO) 0.1 10^3/uL (0.0-1.0); MONOCYTES % (AUTO) 1.5 %; NEUTROPHILS # (AUTO) 7.5 10^3/uL (1.5-6.6); NEUTROPHILS % (AUTO) 90.9 %; PLT - PLATELET COUNT 146 10^3/uL (130-450); RED BLOOD COUNT 3.06 10^6/uL (4.70-6.10); RED CELL DISTRIBUTION WIDTH 17.2 % (12.0-15.0); WHITE BLOOD COUNT 8.2 x10^3/uL (4.8-10.8)
[2023-12-07 05:36] LABS: POTASSIUM 3.8 mmol/L (3.5-4.5)
[2023-12-07] MEDS ORDERED: FERRIC GLUCONATE 125 MG in SODIUM CHLORIDE 0.9% 100ML 100 ML IV ONE (08:10)
--- NOTE | 2023-12-07 08:45 | CONSULTATION NOTE ---
Surgery Consult - Admit Date Hospital Admission Date: 12/05/23 - Consult Date Consult Date: 12/07/23 Requesting Provider: Roel - Chief Complaint Chief Complaint: Melena - Home Meds/Allergies Home Medications: Patient History Medication Instructions Recorded Confirmed Levothyroxine Sodium [Levoxyl] 25 mcg PO DAILY 08/28/15 12/05/23 Fludrocortisone [Florinef] 0.05 mg PO DAILY 07/22/18 12/05/23 Hydrocortisone 10 mg PO DAILY PM 09/24/19 12/05/23 Hydrocortisone 20 mg PO DAILY 09/24/19 12/05/23 Tadalafil [Cialis] 10 mg PO DAILY PRN 12/05/23 12/05/23 Testosterone Cypionate 150 mg IM Q14D 12/05/23 12/05/23 Allergies/Adverse Reactions: Allergies Allergy/AdvReac Type Severity Reaction Status Date / Time nivolumab [From Opdivo] AdvReac Intermediate LOWER Verified 12/05/23 14:49 EXTREMITY PAIN morphine AdvReac Itching Verified 12/05/23 14:49 - Vital Signs Vital Signs: Last Vital Signs Temp 97.9 F 12/07/23 07:58 Pulse 86 12/07/23 07:58 Resp 16 12/07/23 07:58 BP 125/66 12/07/23 07:58 Pulse Ox 97 12/07/23 07:58 O2 Flow Rate Intake & Output: Intake & Output 12/04/23 12/05/23 12/06/23 12/07/23 23:59 23:59 23:59 23:59 Intake Total 1100 3768.333 1000 Balance 1100 3768.333 1000 - Lab Results Result Diagrams: 12/07/23 04:30 12/07/23 04:30 - Consultation Note Consultation Note: General Surgery Consultation Note Assessment: 1) Anemia, melena suspect UGI source. No clinical or lab evidence of an active GI bleed at this time. 2) Metastatic malignant melanoma 3) Panhypopituitarism Recommendation: 1) EGD tomorrow 2) NPO after midnight 3) Continue PPI Consent: Randolph has been counseled for the procedure, it's indications, risks, benefits and expected outcome as well as alternative therapies. We specifically discussed risks associated with anesthesia and insertion of the endoscope into the UGI tract which includes bleeding and/or injury to the esophagus which may require surgical intervention. Randolph understands, agrees, and consents to the proposed operative strategy and requests that we proceed with the procedure as outlined in our discussion. <><><><><><><><><><> Reason for Consultation Anemia, melena OLYA Dickson is a 77 year old male who was admitted to the Medical Hospitalist service 12/05/23 with anemia, melena, and a history of metastatic malignant kely anoma. He has been hemodynamically stable since admission except for mild orthostasis which is thought due to adrenal insufficiency related to his immunotherapy-induced panhypopituitarism. I am requested to perform EGD to evaluate the source and etiology of the anemia and melena. Randolph underwent EGD/CS 6 years ago as part of his continued cancer surveillance strategy and both examinations were normal (according to the patient). He is scheduled for a routine MRI/CT scan next Friday. He cancer is managed through our local cancer clinic. Randolph tells me that he and his spouse traveled to [place] on Friday. Then on Friday he noted the black stools associated with diarrhea. The diarrhea has subsequently stopped. He denies eating tainted food and does not think the trip was particularly stressful. He takes a baby ASA daily to prevent DVT, something that was prescribed when he was treated for polycythemia. He occasionally uses Tums for GERD symptoms. He has no prior history of esophagitis or PUD. He does not smoke. Past Medical History - HTN, Hypothyroidism, Nephrolithiasis, Osteoarthritis, GERD, Metastatic malignant melanoma Past Surgical History - T&A, EGD/CS 6 years ago Family History - Leukemia (Uncle); Lung cancer (Mother/Aunts) Social History - [place] with spouse; Denies ETOH/Cigarette use Current Medications See "Medication" section Allergies See "Allergy" section ROS Pertinent positives Melena; light-headed All other reviewed systems negative Physical Examination Vital Signs: T 97.9; P 86; BP 125/66; RR 16 BMI: 33.5 GENERAL APPEARANCE: Normal development, normal body habitus, normal grooming PSYCHIATRIC: AAO; Comfortable EYES: Pupils equal, round and reactive to light, sclera anicteric EARS, NOSE, MOUTH, THROAT: Hearing normal, Oral mucous membranes moist and without lesions; NECK: No crepitus, lymphadenopathy, or thyromegaly LUNGS: Clear to auscultation without wheezing; No use of accessory muscles to breathe CARDIOVASCULAR: Heart-NSR; Palpable carotid arteries - no bruits; Pedal pulses palpable; No peripheral edema ABD: Soft, non-distended; Non-tender; No palpable masses; + BS LYMPHATIC: Neck, without palpable adenopathy EXTREMITIES: No clubbing, cyanosis, infections SKIN: Anicteric; No rashes, lesions, Ulcerations Labs See "Labs" section Imaging N/A Zack Navarrete MD, [facility] General Surgery Service [phone]
[2023-12-07] MEDS: FERRIC GLUCONATE 125 MG in SODIUM CHLORIDE 0.9% 100ML 100 ML IV ONE (08:59)
[2023-12-07] MEDS ORDERED: polyethylene glycoL 3350 17 GM PACKET PO PRN (10:10)
[2023-12-07] MEDS ORDERED: DOCUSATE SODIUM 250 MG CAPSULE PO SCH (11:00)
[2023-12-07] MEDS ORDERED: SENNA 8.6 MG TABLET PO SCH (11:00)
--- NOTE | 2023-12-07 11:16 | PROVIDER PROGRESS NOTE ---
Subjective - Prog Note Date Prog Note Date: 12/07/23 Prog Note Time: 11:14 - Subjective Pt reports feeling: Improved Subjective: As documented yesterday, he had significant hypotension in the morning however he responded promptly to stress dose IV Solu-Cortef. He denies having any further issues after that and feels well this morning. He denied having any melena however nursing reports that he did have a melenic bowel movement this morning. He denies any abdominal pain, chest pain, shortness of breath, cough, dyspnea, fevers. Objective - Vital Signs/Intake & Output Reviewed Vital Signs: Yes Vital Signs: Vital Signs x48h Temp Pulse Resp BP Pulse Ox 12/07/23 07:58 36.6 C 86 16 125/66 97 Intake & Output: Intake & Output 12/04/23 12/05/23 12/06/23 12/07/23 23:59 23:59 23:59 23:59 Intake Total 1100 3768.333 1680 Balance 1100 3768.333 1680 - Objective General Appearance: positive: No acute distress, Alert Eyes Bilateral: positive: Normal inspection, PERRL, EOMI ENT: positive: ENT inspection nml, Pharynx nml, No signs of dehydration Neck: positive: Nml inspection, Thyroid nml, No JVD, Trachea midline Respiratory: positive: No respiratory distress, Breath sounds nml. negative: Wheezes, Rales, Rhonchi Cardiovascular: positive: Regular rate & rhythm, No murmur, No gallop Abdomen: positive: Non-tender, No organomegaly, Nml bowel sounds, No distention Skin: positive: Color nml, No rash, Warm, Dry Extremities: positive: Nml appearance, No pedal edema Neurologic/Psychiatric: positive: Oriented x3, CN's nml (2-12), Motor nml - Lab Results Fish Bones: 12/07/23 04:30 12/07/23 04:30 Other Labs: Lab Results x24hrs 12/07/23 12/07/23 12/06/23 Range/Units 04:30 04:30 17:17 WBC 8.2 (4.8-10.8) x10^3/uL RBC 3.06 L (4.70-6.10) 10^6/uL Hgb 8.3 L (14.0-18.0) g/dL Hct 27.0 L (42.0-52.0) % MCV 88.2 (80.0-94.0) fL MCH 27.1 (27.0-31.0) pg MCHC 30.7 L (32.0-36.0) g/dL RDW 17.2 H (12.0-15.0) % Plt Count 146 (130-450) 10^3/uL MPV 11.7 H (7.4-11.4) fL Reticulocyte % (Auto) (0.5-2.3) % Neut # (Auto) 7.5 H (1.5-6.6) 10^3/uL Lymph # (Auto) 0.4 L (1.5-3.5) 10^3/uL [place] # (Auto) 0.1 (0.0-1.0) 10^3/uL Eos # (Auto) 0.0 (0.0-0.7) 10^3/uL Baso # (Auto) 0.0 (0.0-0.1) 10^3/uL Absolute Nucleated RBC 0.00 x10^3/uL Nucleated RBC % 0.0 /100WBC Absolute Retic (0.020-0.110) 10^6/uL Sodium 139 (135-145) mmol/L Potassium 3.8 (3.5-4.5) mmol/L Chloride 110 (101-111) mmol/L Carbon Dioxide 23 (21-32) mmol/L Anion Gap 6.0 (6-13) BUN 16 (6-20) mg/dL Creatinine 1.0 (0.6-1.3) mg/dL Estimated GFR (MDRD) 73 L (>89) Glucose 130 H (74-104) mg/dL Calcium 8.0 L (8.5-10.3) mg/dL Magnesium 2.0 (1.7-2.3) mg/dL Iron 17 L (50-212) ug/dL TIBC 353 (250-450) ug/dL % Saturation 5 L (20-50) % Transferrin 252 (203-362) mg/dL Ferritin 20.4 L (23.9-336.2) ng/mL Vitamin B12 407 (180-914) pg/mL Folate 13.8 (5.90 - >24.8) ng/mL TSH 0.17 L (0.34-5.60) uIU/mL 12/06/23 Range/Units 17:17 WBC (4.8-10.8) x10^3/uL RBC 3.34 L (4.70-6.10) 10^6/uL Hgb 9.3 L (14.0-18.0) g/dL Hct 29.6 L (42.0-52.0) % MCV (80.0-94.0) fL MCH (27.0-31.0) pg MCHC (32.0-36.0) g/dL RDW (12.0-15.0) % Plt Count (130-450) 10^3/uL MPV (7.4-11.4) fL Reticulocyte % (Auto) 3.16 H (0.5-2.3) % Neut # (Auto) (1.5-6.6) 10^3/uL Lymph # (Auto) (1.5-3.5) 10^3/uL [place] # (Auto) (0.0-1.0) 10^3/uL Eos # (Auto) (0.0-0.7) 10^3/uL Baso # (Auto) (0.0-0.1) 10^3/uL Absolute Nucleated RBC x10^3/uL Nucleated RBC % /100WBC Absolute Retic 0.106 (0.020-0.110) 10^6/uL Sodium (135-145) mmol/L Potassium (3.5-4.5) mmol/L Chloride (101-111) mmol/L Carbon Dioxide (21-32) mmol/L Anion Gap (6-13) BUN (6-20) mg/dL Creatinine (0.6-1.3) mg/dL Estimated GFR (MDRD) (>89) Glucose (74-104) mg/dL Calcium (8.5-10.3) mg/dL Magnesium (1.7-2.3) mg/dL Iron (50-212) ug/dL TIBC (250-450) ug/dL % Saturation (20-50) % Transferrin (203-362) mg/dL Ferritin (23.9-336.2) ng/mL Vitamin B12 (180-914) pg/mL Folate (5.90 - >24.8) ng/mL TSH (0.34-5.60) uIU/mL Sepsis Event Note (H) - Evaluation Current Stage of Sepsis: Ruled out Assessment/Plan - Problem List (1) Acute upper GI bleed Impression: 4 days prior to admission he had been having nausea and diarrhea with dark/black stools. This was associated with increased weakness, malaise but denies any acid reflux. Most likely has an upper GI bleed. -Holding home aspirin. -Continue IV Protonix 40 mg twice daily. -Hemoglobin has remained stable. Has no melenic bowel movements since admission until this morning. -General Surgery following, anticipate EGD tomorrow. (2) Anemia due to acute blood loss Impression: His baseline hemoglobin is in the 15-16 range with the last hemoglobin in our system checked on 09/16/2023 and it was 15.6 at that time. At presentation to the ER his hemoglobin was 8.5. -Treating acute upper GI bleed as noted above. -Hemoglobin has remained essentially stable during his stay thus far ranging fro m 7.9-9.0.. -Transfuse for hemoglobin less than 7. -Has iron deficiency noted on labs. Will give a dose of IV Ferrlecit today, start oral iron supplements tomorrow. 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 He is supposed to take hydrocortisone 20 mg in the morning and 10 mg in the evening with Florinef 0.05 mg. He has not been taking that for the past 4 days as he was feeling unwell and did not think that he should take medications. -His hypotension on presentation and significant hypotension after admission is likely secondary to adrenal crisis. -Decrease IV Solucortef to 100 mg BID from TID dosing. Tomorrow evening, provided BP is unremarkable after EGD, can decrease dose to 50 mg BID. -Continue fludrocortisone to 0.1 mg daily, can decrease to 0.05 mg daily on Friday morning. (4) Hypothyroidism Impression: This is secondary to his panhypopituitarism as noted above. -Continue home Synthroid. -Check TSH and FT4. Qualifiers: Hypothyroidism type: due to medication Qualified Code(s): E03.2 - Hypothyroidism due to medicaments and other exogenous substances (5) Metastatic melanoma Impression: Has a history of metastatic melanoma and apparently had undergone an EGD/colonoscopy at the [facility] in 2019 which were reportedly clear. He gets a CT/MRI or PET scan every 3 months and is status post immunotherapy in the past. The immunotherapy did cause panhypopituitarism as noted above. He follows closely with oncology with his last visit in October of this year. His melanoma is metastatic to the right chest wall, lungs, lymph nodes, brain, liver and gallbladder. -No active oncologic issues at this time. 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 -Treat adrenal and hypothyroid issues as noted above. -Can hold home testosterone for now.
[2023-12-07] MEDS: HYDROCORTISONE SUCCINATE 100 MG/2 ML VIAL IVP SCH (23:32)
[2023-12-08 04:50] LABS: BASOPHILS % (AUTO) 0.2 %; EOSINOPHILS # (AUTO) 0.1 10^3/uL (0.0-0.7); HCT - HEMATOCRIT 24.6 % (42.0-52.0); HGB - HEMOGLOBIN 7.3 g/dL (14.0-18.0); LYMPHOCYTES # (AUTO) 0.4 10^3/uL (1.5-3.5); LYMPHOCYTES % (AUTO) 4.7 %; MEAN CORPUSCULAR HEMOGLOBIN 27.2 pg (27.0-31.0); MEAN CORPUSCULAR HGB CONC 29.7 g/dL (32.0-36.0); MEAN CORPUSCULAR VOLUME 91.8 fL (80.0-94.0); MEAN PLATELET VOLUME 11.4 fL (7.4-11.4); MONOCYTES # (AUTO) 0.3 10^3/uL (0.0-1.0); MONOCYTES % (AUTO) 3.1 %; NEUTROPHILS % (AUTO) 87.1 %; PLT - PLATELET COUNT 147 10^3/uL (130-450); RED BLOOD COUNT 2.68 10^6/uL (4.70-6.10); RED CELL DISTRIBUTION WIDTH 17.6 % (12.0-15.0)
[2023-12-08 04:58] LABS: INR 1.3 (0.8-1.2)
[2023-12-08 05:29] LABS: BUN - BLOOD UREA NITROGEN 15 mg/dL (6-20); CALCIUM 7.6 mg/dL (8.5-10.3); CARBON DIOXIDE - CO2 24 mmol/L (21-32); CHLORIDE 111 mmol/L (101-111); CREATININE 1.2 mg/dL (0.6-1.3); GFR - MDRD 59 (>89); GLUCOSE 117 mg/dL (74-104); POTASSIUM 3.3 mmol/L (3.5-4.5); SODIUM 141 mmol/L (135-145)
[2023-12-08] MEDS ORDERED: LIDOCAINE-PF 2% 10 ML AMP SUBQ ONE (07:51)
[2023-12-08] MEDS ORDERED: PROPOFOL 200 MG/20 ML VIAL IVP ONE ×2 (07:51→08:26)
[2023-12-08] MEDS ORDERED: FERROUS SULFATE 325 MG TABLET PO SCH (08:00)
--- NOTE | 2023-12-08 08:05 | ANESTHESIA ---
Pre-Anesthesia VS, & Labs - Diagnosis ugi bleed - Procedure egd Vital Signs: Temp Pulse Resp BP Pulse Ox O2 Flow Rate 37.1 C 73 16 132/76 H 95 12/08/23 08:00 12/08/23 08:00 12/08/23 08:00 12/08/23 08:00 12/08/23 08:00 Height: 5 ft 8 in Weight (kg): 100 kg Body Mass Index: 33.5 BMI Classification: Obese - NPO >8 hours - Lab Results Current Lab Results: Laboratory Tests 12/08/23 04:19: PT 14.0 H, INR 1.3 H 12/08/23 04:19: Sodium 141, Potassium 3.3 L, Chloride 111, Carbon Dioxide 24, Anion Gap 6.0, BUN 15, Creatinine 1.2, Estimated GFR (MDRD) 59 L, Glucose 117 H, Calcium 7.6 L, Free T4 Direct < 0.25 L 12/08/23 04:19: WBC 8.0, RBC 2.68 L, Hgb 7.3 L, Hct 24.6 L, MCV 91.8, MCH 27.2, MCHC 29.7 L, RDW 17.6 H, Plt Count 147, MPV 11.4, Neut # (Auto) 7.0 H, Lymph # (Auto) 0.4 L, [place] # (Auto) 0.3, Eos # (Auto) 0.1, Baso # (Auto) 0.0, Absolute Nucleated RBC 0.00, Nucleated RBC % 0.0 12/07/23 04:30: Sodium 139, Potassium 3.8, Chloride 110, Carbon Dioxide 23, Anion Gap 6.0, BUN 16, Creatinine 1.0, Estimated GFR (MDRD) 73 L, Glucose 130 H, Calcium 8.0 L, Magnesium 2.0 12/07/23 04:30: WBC 8.2, RBC 3.06 L, Hgb 8.3 L, Hct 27.0 L, MCV 88.2, MCH 27.1, MCHC 30.7 L, RDW 17.2 H, Plt Count 146, MPV 11.7 H, Neut # (Auto) 7.5 H, Lymph # (Auto) 0.4 L, [place] # (Auto) 0.1, Eos # (Auto) 0.0, Baso # (Auto) 0.0, Absolute Nucleated RBC 0.00, Nucleated RBC % 0.0 12/06/23 17:17: Iron 17 L, TIBC 353, % Saturation 5 L, Transferrin 252, Ferritin 20.4 L, Vitamin B12 407, Folate 13.8, TSH 0.17 L 12/06/23 17:17: RBC 3.34 L, Hgb 9.3 L, Hct 29.6 L, Reticulocyte % (Auto) 3.16 H, Absolute Retic 0.106 12/06/23 08:17: Hgb 7.8 L, Hct 25.8 L 12/06/23 08:17: Lactic Acid 1.0 12/06/23 04:21: Estimat Average Glucose 100, Hemoglobin A1c % 5.1 12/06/23 04:21: Sodium 141, Potassium 3.4 L, Chloride 111, Carbon Dioxide 23, Anion Gap 7.0, BUN 30 H, Creatinine 1.0, Estimated GFR (MDRD) 73 L, Glucose 76, Calcium 7.5 L 12/06/23 04:21: WBC 3.9 L, RBC 3.03 L, Hgb 8.3 L, Hct 27.1 L, MCV 89.4, MCH 27.4, MCHC 30.6 L, RDW 17.5 H, Plt Count 118 L, MPV 11.5 H, Neut # (Auto) 2.6, Lymph # (Auto) 0.6 L, [place] # (Auto) 0.3, Eos # (Auto) 0.2, Baso # (Auto) 0.0, Absolute Nucleated RBC 0.00, Nucleated RBC % 0.0 12/06/23 01:38: Hgb 7.9 L 12/05/23 19:57: Hgb 8.7 L 12/05/23 17:53: Hgb 9.0 L, Hct 29.9 L 12/05/23 16:11: Blood Type A POSITIVE, Antibody Screen NEGATIVE 12/05/23 15:00: Blood Type Recheck A POSITIVE 12/05/23 15:00: Sodium 140, Potassium 3.3 L, Chloride 109, Carbon Dioxide 25, Anion Gap 6.0, BUN 39 H, Creatinine 1.2, Estimated GFR (MDRD) 59 L, Glucose 133 H, Calcium 8.0 L, Magnesium 2.0, Total Bilirubin 0.7, AST 13, ALT 7 L, Alkaline Phosphatase 30 L, Total Protein 5.5 L, Albumin 3.5, Globulin 2.0 L, Albumin/Globulin Ratio 1.8, Lipase 25 12/05/23 15:00: WBC 4.8, RBC 3.14 L, Hgb 8.5 L, Hct 27.9 L, MCV 88.9, MCH 27.1, MCHC 30.5 L, RDW 17.4 H, Plt Count 148, MPV 11.5 H, Neut # (Auto) 3.1, Lymph # (Auto) 0.9 L, [place] # (Auto) 0.3, Eos # (Auto) 0.2, Baso # (Auto) 0.0, Absolute Nucleated RBC 0.00, Nucleated RBC % 0.0 Fish Bones: 12/08/23 04:19 12/08/23 04:19 Home Medications and Allergies Home Medications: Ambulatory Orders Tadalafil [Cialis] 10 mg PO DAILY PRN 12/05/23 Testosterone Cypionate 150 mg IM Q14D 12/05/23 Active Medications Acetaminophen (Acetaminophen 325 Mg Tablet) 650 mg PO Q4HR PRN PRN Reason: Pain 1 to 4, or Fever Ferrous Sulfate (Ferrous Sulfate 325 Mg Tablet) 325 mg PO DAILYWM [facility] Fludrocortisone Acetate (Fludrocortisone 0.1 Mg Tablet) 0.1 mg PO DAILY [facility] Last Admin: 12/07/23 08:59 Dose: 0.1 mg Hydrocortisone Sodium Succinate (Hydrocortisone Succinate 100 Mg/2 Ml Vial) 100 mg IVP BID [facility] Last Admin: 12/07/23 23:32 Dose: 100 mg Lactated Ringer's (Lr) 1,000 mls @ 100 mls/hr IV .Q10H [facility] Last Admin: 12/07/23 23:42 Dose: 100 mls/hr Levothyroxine Sodium (Levothyroxine 25 Mcg Tablet) 25 mcg PO QDAC [facility] Last Admin: 12/08/23 06:59 Dose: 25 mcg Pantoprazole Sodium (Pantoprazole 40 Mg Vial) 40 mg IVP BID [facility] Last Admin: 12/07/23 23:32 Dose: 40 mg Polyethylene Glycol (Polyethylene Glycol 3350 17 Gm Packet) 17 gm PO DAILY PRN PRN Reason: Bowel Protocol Sodium Chloride (Sodium Chloride Flush 0.9% 10 Ml Syringe) 10 ml IVP PRN PRN PRN Reason: NEEDED PER PROVIDER ORDERS Sodium Chloride (Sodium Chloride Flush 0.9% 10 Ml Syringe) 10 ml IVP 0100,0900,1700 [facility] Last Admin: 12/07/23 23:32 Dose: 10 ml Levothyroxine Sodium [Levoxyl] 25 mcg PO DAILY 08/28/15 Fludrocortisone [Florinef] 0.05 mg PO DAILY 07/22/18 Hydrocortisone 10 mg PO DAILY PM 09/24/19 Hydrocortisone 20 mg PO DAILY 09/24/19 Tadalafil [Cialis] 10 mg PO DAILY PRN 12/05/23 Testosterone Cypionate 150 mg IM Q14D 12/05/23 Allergies/Adverse Reactions: Allergies Allergy/AdvReac Type Severity Reaction Status Date / Time nivolumab [From Opdivo] AdvReac Intermediate LOWER Verified 12/05/23 14:49 EXTREMITY PAIN morphine AdvReac Itching Verified 12/05/23 14:49 Anes History & Medical History - Anesthetic History Anesthesia Complications: reports: No previous complications - Medical History Cardiovascular: reports: Hypertension, Murmur Pulmonary: reports: None Gastrointestinal: reports: None, GI bleed Urinary: reports: Kidney stones Neuro: reports: None Musculoskeletal: reports: Osteoarthritis Endocrine/Autoimmune: reports: HyPOthyroidism Blood Disorders: reports: None Skin: reports: Other (metastatic melanoma in remission. Getting PET scan? in a month for periodic review. ) Smoking Status: Never smoker Psychosocial: reports: No issues indicated - Surgical History General: reports: Colonoscopy, EGD, Other Eyes Ears Nose Throat (EENT): reports: Tonsil/Adenoidectomy, Other Cardiothoracic: reports: Other Exam General: Alert, Oriented x3 Dental: WNL, Other (upper right bridge removed) Mouth Openin Fingerbreadth Neck Mobility: Normal Mallampati classification: II Thyromental Distance: 4-6 cm Respiratory: Lungs clear Cardiovascular: Regular rate Plan Anesthesia Type: Total IV Consent for Procedure(s) Verified and Reviewed: Yes Code Status: Attempt Resuscitation ASA classification: 3-Severe systemic disease Is this case an emergency?: Yes
[2023-12-08] MEDS: EPINEPHrine 1 MG/ML AMP IM ONE (08:26)
[2023-12-08] MEDS ORDERED: EPINEPHrine 1 MG/ML AMP ONE (08:26)
--- NOTE | 2023-12-08 08:57 | OPERATIVE REPORT ---
Operative Report - General Admit Date: 12/05/23 - Other Other Information/Narrative: General Surgery Brief Procedure Note (see "Provation" for details) Preop Diagnosis: Anemia, melena Postop Diagnosis: Pre-pyloric superficial ulcers (2) with largest of the two (8 mm) and associated with slow, active ooze. Ulcers treated with dilute epi injection. Biopsy of antral mucosa for HP taken. No complications Procedure: EGD with injection of ulcers and biopsy for HP Recommendation: 1) Mylanta 30 ml PO Q 6 hiours 2) PPI for 6-8 weeks 3) H&H Q 6 hrs for 24 hrs 4) Follow up PCP in 2-3 weeks for H&H check 5) Avoid ASA or other NSAID's Zack Navarrete MD, FACS General Surgery Service
[2023-12-08] MEDS: LEVOTHYROXINE 100 MCG TABLET PO ONE (09:14)
[2023-12-08] MEDS: LEVOTHYROXINE 25 MCG TABLET PO ONE (09:14)
[2023-12-08 10:08] LABS: HCT - HEMATOCRIT 24.5 % (42.0-52.0); HGB - HEMOGLOBIN 7.5 g/dL (14.0-18.0)
--- NOTE | 2023-12-08 11:39 | ANESTHESIA POST OP EVALUATION ---
Anesthesia Post Eval - Post Anesthesia Eval Vitals: Last Vital Signs Temp 37.0 C 12/08/23 09:15 Pulse 83 12/08/23 09:15 Resp 16 12/08/23 09:15 BP 139/78 H 12/08/23 09:15 Pulse Ox 98 12/08/23 09:15 O2 Flow Rate CV Function Including HR & BP: Stable Pain Control: Satisfactory Nausea & Vomiting: Negative Mental Status: Baseline Respiratory Status: Airway Patent Hydration Status: Satisfactory Anesthesia Complications: None
--- NOTE | 2023-12-08 12:39 | PROVIDER PROGRESS NOTE ---
Subjective - Prog Note Date Prog Note Date: 12/08/23 Prog Note Time: 12:37 - Subjective Pt reports feeling: No change Subjective: Yesterday afternoon he started to have some melena and this morning his hemoglobin had dropped to 7.3. He denies having any abdominal pain and denies any melena this morning. He did feel dizzy with standing but his vitals have remained stable. He denies having any nausea, vomiting, chest pain or shortness of breath. He went for EGD this morning which showed to prepyloric superficial ulcers with slow oozing that were injected with epinephrine. Objective - Vital Signs/Intake & Output Reviewed Vital Signs: Yes Vital Signs: Vital Signs x48h Temp Pulse Resp BP BP Pulse Ox 12/08/23 09:15 37.0 C 83 16 139/78 H 98 12/08/23 08:45 36.6 C 80 14 110/58 L 97 12/08/23 08:00 37.1 C 73 16 132/76 H 95 Intake & Output: Intake & Output 12/05/23 12/06/23 12/07/23 12/08/23 23:59 23:59 23:59 23:59 Intake Total 1100 3768.333 4065.000 925 Balance 1100 3768.333 4065.000 925 - Objective General Appearance: positive: No acute distress, Alert, Mild distress Eyes Bilateral: positive: Normal inspection, PERRL, EOMI ENT: positive: ENT inspection nml, Pharynx nml, No signs of dehydration Neck: positive: Nml inspection, Thyroid nml, No JVD, Trachea midline Respiratory: positive: No respiratory distress, Breath sounds nml. negative: Wheezes, Rales, Rhonchi Cardiovascular: positive: Regular rate & rhythm, No murmur, No gallop Abdomen: positive: Non-tender, No organomegaly, Nml bowel sounds, No distention Skin: positive: Color nml, No rash, Warm, Dry Extremities: positive: Nml appearance, No pedal edema Neurologic/Psychiatric: positive: Oriented x3, CN's nml (2-12), Motor nml, Sensation nml - Lab Results Fish Bones: 12/08/23 09:58 12/08/23 04:19 Other Labs: Lab Results x24hrs 12/08/23 12/08/23 12/08/23 Range/Units 09:58 04:19 04:19 WBC (4.8-10.8) x10^3/uL RBC (4.70-6.10) 10^6/uL Hgb 7.5 L (14.0-18.0) g/dL Hct 24.5 L (42.0-52.0) % MCV (80.0-94.0) fL MCH (27.0-31.0) pg MCHC (32.0-36.0) g/dL RDW (12.0-15.0) % Plt Count (130-450) 10^3/uL MPV (7.4-11.4) fL Neut # (Auto) (1.5-6.6) 10^3/uL Lymph # (Auto) (1.5-3.5) 10^3/uL [place] # (Auto) (0.0-1.0) 10^3/uL Eos # (Auto) (0.0-0.7) 10^3/uL Baso # (Auto) (0.0-0.1) 10^3/uL Absolute Nucleated RBC x10^3/uL Nucleated RBC % /100WBC PT 14.0 H (9.9-12.6) secs INR 1.3 H (0.8-1.2) Sodium 141 (135-145) mmol/L Potassium 3.3 L (3.5-4.5) mmol/L Chloride 111 (101-111) mmol/L Carbon Dioxide 24 (21-32) mmol/L Anion Gap 6.0 (6-13) BUN 15 (6-20) mg/dL Creatinine 1.2 (0.6-1.3) mg/dL Estimated GFR (MDRD) 59 L (>89) Glucose 117 H (74-104) mg/dL Calcium 7.6 L (8.5-10.3) mg/dL Free T4 Direct < 0.25 L (0.58-1.64) ng/dL 12/08/23 Range/Units 04:19 WBC 8.0 (4.8-10.8) x10^3/uL RBC 2.68 L (4.70-6.10) 10^6/uL Hgb 7.3 L (14.0-18.0) g/dL Hct 24.6 L (42.0-52.0) % MCV 91.8 (80.0-94.0) fL MCH 27.2 (27.0-31.0) pg MCHC 29.7 L (32.0-36.0) g/dL RDW 17.6 H (12.0-15.0) % Plt Count 147 (130-450) 10^3/uL MPV 11.4 (7.4-11.4) fL Neut # (Auto) 7.0 H (1.5-6.6) 10^3/uL Lymph # (Auto) 0.4 L (1.5-3.5) 10^3/uL [place] # (Auto) 0.3 (0.0-1.0) 10^3/uL Eos # (Auto) 0.1 (0.0-0.7) 10^3/uL Baso # (Auto) 0.0 (0.0-0.1) 10^3/uL Absolute Nucleated RBC 0.00 x10^3/uL Nucleated RBC % 0.0 /100WBC PT (9.9-12.6) secs INR (0.8-1.2) Sodium (135-145) mmol/L Potassium (3.5-4.5) mmol/L Chloride (101-111) mmol/L Carbon Dioxide (21-32) mmol/L Anion Gap (6-13) BUN (6-20) mg/dL Creatinine (0.6-1.3) mg/dL Estimated GFR (MDRD) (>89) Glucose (74-104) mg/dL Calcium (8.5-10.3) mg/dL Free T4 Direct (0.58-1.64) ng/dL Sepsis Event Note (H) - Evaluation Current Stage of Sepsis: Ruled out Assessment/Plan - Problem List (1) Acute upper GI bleed Impression: 4 days prior to admission he had been having nausea and diarrhea with dark/black stools. This was associated with increased weakness, malaise but denies any acid reflux. Most likely has an upper GI bleed. -Holding home aspirin, would discontinue this at discharge. -Continue IV Protonix 40 mg twice daily. -Hemoglobin dropped today, will repeat H/H and transfuse if hemoglobin < 7. -General Surgery following, appreciate assistance. EGD showed two pre-pyloric ulcers with active oozing that were injected with epinephrine. -Follow recommendations noted in operative report. -If hemoglobin remains stable, can discharge tomorrow. (2) Anemia due to acute blood loss Impression: His baseline hemoglobin is in the 15-16 range with the last hemoglobin in our system checked on 09/16/2023 and it was 15.6 at that time. At presentation to the ER his hemoglobin was 8.5. -Treating acute upper GI bleed as noted above. -Hemoglobin has remained essentially stable during his stay thus far ranging from 7.9-9.0. -Transfuse for hemoglobin less than 7. -Has iron deficiency noted on labs. Received one dose of IV Ferrlecit this hospitalization. Start oral iron supplements today. 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 He is supposed to take hydrocortisone 20 mg in the morning and 10 mg in the evening with Florinef 0.05 mg. He has not been taking that for the past 4 days as he was feeling unwell and did not think that he should take medications. -His hypotension on presentation and significant hypotension after admission is likely secondary to adrenal crisis. -Decrease IV Hydrocortisone to 50 mg BID today. Tomorrow can switch to 40 mg Cortef in the morning and 20 mg Cortef in the evening for two days, then drop to 20 mg qAM and 10 mg qPM thereafter. -Continue fludrocortisone to 0.1 mg daily, can decrease to 0.05 mg daily on Friday morning. (4) Hypothyroidism Impression: This is secondary to his panhypopituitarism as noted above. -Continue home Synthroid. -TSH and FT4 both low. Increase dose of synthroid to 150 mcg daily. Qualifiers: Hypothyroidism type: due to medication Qualified Code(s): E03.2 - Hypothyroidism due to medicaments and other exogenous substances (5) Metastatic melanoma Impression: Has a history of metastatic melanoma and apparently had undergone an EGD/colono scopy at the [facility] in 2019 which were reportedly clear. He gets a CT/MRI or PET scan every 3 months and is status post immunotherapy in the past. The immunotherapy did cause panhypopituitarism as noted above. He follows closely with oncology with his last visit in October of this year. His melanoma is metastatic to the right chest wall, lungs, lymph nodes, brain, liver and gallbladder. -No active oncologic issues at this time. -Has outpatient CT and MRI scheduled for tomorrow, can still get these performed. 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 -Treat adrenal and hypothyroid issues as noted above. -Can hold home testosterone for now.
[2023-12-08] MEDS: FERROUS SULFATE 325 MG TABLET PO SCH (15:04)
[2023-12-08 18:06] LABS: HGB - HEMOGLOBIN 8.2 g/dL (14.0-18.0)
[2023-12-08] MEDS: HYDROCORTISONE SUCCINATE 100 MG/2 ML VIAL IVP SCH (20:45)
[2023-12-09 05:23] LABS: BASOPHILS % (AUTO) 0.1 %; EOSINOPHILS % (AUTO) 0.3 %; HCT - HEMATOCRIT 23.5 % (42.0-52.0); HGB - HEMOGLOBIN 7.1 g/dL (14.0-18.0); LYMPHOCYTES % (AUTO) 7.2 %; MEAN CORPUSCULAR HEMOGLOBIN 27.1 pg (27.0-31.0); MEAN CORPUSCULAR HGB CONC 30.2 g/dL (32.0-36.0); MEAN CORPUSCULAR VOLUME 89.7 fL (80.0-94.0); MEAN PLATELET VOLUME 11.1 fL (7.4-11.4); MONOCYTES % (AUTO) 5.1 %; NEUTROPHILS % (AUTO) 81.4 %; PLT - PLATELET COUNT 149 10^3/uL (130-450); RED BLOOD COUNT 2.62 10^6/uL (4.70-6.10); RED CELL DISTRIBUTION WIDTH 17.8 % (12.0-15.0); WHITE BLOOD COUNT 7.7 x10^3/uL (4.8-10.8)
[2023-12-09 05:40] LABS: ABNORMAL LYMPHS % (MANUAL) 0 %
[2023-12-09 05:42] LABS: CALCIUM 7.3 mg/dL (8.5-10.3); CREATININE 1.3 mg/dL (0.6-1.3); POTASSIUM 3.2 mmol/L (3.5-4.5)
[2023-12-09] MEDS: LEVOTHYROXINE 75 MCG TABLET PO SCH (06:14)
[2023-12-09 06:36] LABS: BAND NEUTROPHILS % (MANUAL) 2 %; DIFFERENTIAL COMMENT MANUAL DIFFERENTIAL; LYMPHOCYTES # (MANUAL) 1.1 10^3/uL (1.5-3.5); LYMPHOCYTES % (MANUAL) 14 %; MONOCYTES # (MANUAL) 0.2 10^3/uL (0.0-1.0); NEUTROPHILS # (MANUAL) 6.4 10^3/uL (1.5-6.6); PLATELET ESTIMATE, MANUAL NORMAL (130-450,000) (NORMAL); RBC MORPHOLOGY (MULTIPLE) NORMAL APPEARANCE (NORMAL)
[2023-12-09] MEDS: FLUDROCORTISONE 0.1 MG TABLET PO SCH (08:06)
--- NOTE | 2023-12-09 09:21 | PROVIDER PROGRESS NOTE ---
Progress Note General Surgery Progress Note Patient tolerating a general diet. No bowel motions. H&H remain low but no clinical evidence of active bleeding at this time. Continue PI/Mylanta; Serial H&H; Transfuse as indicated Rashaad Navarrete MD, FACS General Surgery Service
[2023-12-09 12:27] LABS: HCT - HEMATOCRIT 27.5 % (42.0-52.0); HGB - HEMOGLOBIN 8.5 g/dL (14.0-18.0)
--- NOTE | 2023-12-09 15:51 | Discharge Plan ---
Discharge Plan Problem Reviewed?: Yes Disposition: Home, Self Care Condition: Stable Prescriptions: Ferrous Sulfate [Feosol] 325 mg PO DAILY 30 Days #30 tablet Pantoprazole [Protonix] 40 mg PO DAILY #30 tablet Diet: Regular Activity Restrictions: Activity as Tolerated Shower Restrictions: No Driving Restrictions: No Weight Bearing: Full Weight Instruction Topics: Ulcer Bleeding Peptic Tx Health Concerns: Per Sowmya Morton's history and physical: 77-year-old gentleman who presents to the emergency department after initially presenting to walk-in clinic and was noted to have hypotension. Has a 4-day history of diarrhea and nausea. Notes that his stools have been rather dark with increasing weakness and malaise as the week has gone on. 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 He is currently in remission with his last dose of chemotherapy on February 25, 2023. He gets either a PET scan or a CT/MRI every 3 months he is due for a PET scan later this month in [place]. He has a history of chemotherapy induced adrenal insufficiency for which she takes hydrocortisone 10 mg at at bedtime and 20 mg in the morning as well as Florinef 0.05 mg daily. He takes an 81 mg aspirin every day for DVT prophylaxis. He does not take any NSAIDs. He does not drink alcohol. He does not smoke cigarettes. With regards to his CODE STATUS he request to be full code and full care. His is his medical decision-maker. Had an EGD and colonoscopy in 2019 as part of his workup related to his melanoma. He was diagnosed with his melanoma in December 2017. Hospital Course: Mr. Diaz was admitted to the hospital as an inpatient on December 05, 2023 with a diagnosis of gastrointestinal hemorrhage. Treatment was initiated with IV Protonix 40 mg twice daily. He received no transfusions during this hospitalization. General surgery was consulted and on December 08, 2023 the patient underwent an upper endoscopy procedure which revealed prepyloric superficial ulcers with the largest of the 2 being approximately 8 mm in size. The superficial ulcers were oozing and was treated with dilute epinephrine injection. Biopsies were taken from the antral mucosa for helicobacter pylori evaluation. Today he is hemodynamically stable and denies chest pain, shortness of breath and abdominal pain. He is hemoglobin hematocrit is stable at 8.5/27.5. Patient is stable for discharge to home. Plan of Treatment: 1. Continue all medications as prescribed. 2. Please avoid alcohol consumption, use of NSAIDs such as ibuprofen and naproxen. 3. Please discontinue aspirin. Recommend discussing with your primary care provider if this medication requires reinitiation at some point. 4. Please go to an acute care facility, emergency room or your primary care office for symptoms of worsening fatigue, dizziness, vomiting blood. 5. Please follow-up with your primary care provider Dr. Joanna Shepherd and make an appointment to follow-up with Dr. Navarrete in 8-12 weeks. 6. Please be sure to follow-up on your Helicobacter pylori results with Dr. Shepherd or Dr. Navarrete. 7. You may take the iron tablets daily or alternatively you can take them every Friday, Friday and Friday until they are gone or you received different instructions from your primary care provider. 8. Please take the pantoprazole 40 mg tablet, 1 tablet daily for 8 weeks. Care Goals: Goal of care is to return to baseline function. Assessment: (1) Acute upper GI bleed Impression: EGD showed two pre-pyloric ulcers with active oozing that were injected with epinephrine. -Follow recommendations noted in operative report. Recommend discontinuing aspirin. Recommend repeating hemoglobin/hematocrit in 2-4 weeks in addition to iron studies (2) Anemia due to acute blood loss Impression: Patient received iron intravenously as an inpatient. And will continue with ferrous sulfate as an outpatient for 1 month. Recommend repeating iron studies at that time. 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 Continue treatment with Florinef, hydrocortisone, testosterone and levothyroxine as prescribed. (4) Hypothyroidism Impression: This is secondary to his panhypopituitarism as noted above. -Continue home Synthroid. (5) Metastatic melanoma Impression: Has a history of metastatic melanoma and apparently had undergone an EGD/colonoscopy at the [facility] in 2019 which were reportedly clear. He gets a CT/MRI or PET scan every 3 months and is status post immunotherapy in the past. The immunotherapy did cause panhypopituitarism as noted above. He follows closely with oncology with his last visit in October of this year. His melanoma is metastatic to the right chest wall, lungs, lymph nodes, brain, liver and gallbladder. -No active oncologic issues at this time. 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 -Treat adrenal and hypothyroid issues as noted above. No Smoking: If you smoke, Please STOP! Call for help. Follow-up with: Joanna Shepherd MD [Primary Care Provider] -
--- NOTE | 2023-12-09 15:51 | DISCHARGE SUMMARY ---
"Discharge Summary Admit Date: 12/05/23 Discharge Date: 12/09/23 Discharging Provider: Gigi Mora MD Primary Care Provider: Joanna Shepherd Code Status: Attempt Resuscitation Condition at Discharge: Stable Discharge Disposition: 01 Home, Self Care Discharge Facility Name: [facility] - DIAGNOSES Admission Diagnoses: (1) Acute upper GI bleed (2) Anemia due to acute blood loss (3) Adrenal insufficiency (4) Metastatic melanoma (5) Hypothyroidism (6) Hypokalemia Discharge Diagnoses with Status of Each Condition: (1) Acute upper GI bleed (2) Anemia due to acute blood loss (3) Adrenal insufficiency (4) Hypothyroidism (5) Metastatic melanoma (6) Panhypopituitarism - HPI History of Present Illness: Per Sowmya Morton's history and physical: 77-year-old gentleman who presents to the emergency department after initially presenting to walk-in clinic and was noted to have hypotension. Has a 4-day history of diarrhea and nausea. Notes that his stools have been rather dark with increasing weakness and malaise as the week has gone on. 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 He is currently in remission with his last dose of chemotherapy on February 25, 2023. He gets either a PET scan or a CT/MRI every 3 months he is due for a PET scan later this month in [place]. He has a history of chemotherapy induced adrenal insufficiency for which she takes hydrocortisone 10 mg at at bedtime and 20 mg in the morning as well as Florinef 0.05 mg daily. He takes an 81 mg aspirin every day for DVT prophylaxis. He does not take any NSAIDs. He does not drink alcohol. He does not smoke cigarettes. With regards to his CODE STATUS he request to be full code and full care. His is his medical decision-maker. Had an EGD and colonoscopy in 2019 as part of his workup related to his melanoma. He was diagnosed with his melanoma in December 2017. - CONSULTS | PROCEDURES Consultations: 12/07/23 General Surgery (Dr. Zack Navarrete) Procedures: 12/08/23 Upper Endoscopy - HOSPITAL COURSE Hospital Course: Mr. Diaz was admitted to the hospital as an inpatient on December 05, 2023 with a diagnosis of gastrointestinal hemorrhage. Treatment was initiated with IV Protonix 40 mg twice daily. He received no transfusions during this hospitalization. General surgery was consulted and on December 08, 2023 the patient underwent an upper endoscopy procedure which revealed prepyloric superficial ulcers with the largest of the 2 being approximately 8 mm in size. The superficial ulcers were oozing and was treated with dilute epinephrine injection. Biopsies were taken from the antral mucosa for helicobacter pylori evaluation. Today he is hemodynamically stable and denies chest pain, shortness of breath and abdominal pain. He is hemoglobin hematocrit is stable at 8.5/27.5. Patient is stable for discharge to home. - ALLERGIES Allergies/Adverse Reactions: Allergies Allergy/AdvReac Type Severity Reaction Status Date / Time nivolumab [From Opdivo] AdvReac Intermediate LOWER Verified 12/05/23 14:49 EXTREMITY PAIN morphine AdvReac Itching Verified 12/05/23 14:49 - MEDICATIONS Home Medications: Ambulatory Orders Medication Instructions Recorded Confirmed Levothyroxine Sodium [Levoxyl] 25 mcg PO DAILY 08/28/15 12/05/23 Fludrocortisone [Florinef] 0.05 mg PO DAILY 07/22/18 12/05/23 Hydrocortisone 10 mg PO DAILY PM 09/24/19 12/05/23 Hydrocortisone 20 mg PO DAILY 09/24/19 12/05/23 Tadalafil [Cialis] 10 mg PO DAILY PRN 12/05/23 12/05/23 Testosterone Cypionate 150 mg IM Q14D 12/05/23 12/05/23 Ferrous Sulfate [Feosol] 325 mg PO DAILY 30 Days #30 tablet 12/09/23 Pantoprazole [Protonix] 40 mg PO DAILY #30 tablet 12/09/23 - PHYSICAL EXAM AT DISCHARGE General Appearance: positive: No acute distress, Alert Eyes Bilateral: positive: Conjunctivae nml Neck: positive: No JVD Respiratory: positive: Other (Good air exchange in all lung wilson no wheezing no crackles.) Cardiovascular: positive: Other (Positive S1-S2 no extra heart sounds.) Abdomen: positive: Non-tender, No distention Skin: positive: No rash Extremities: positive: No pedal edema Neurologic/Psychiatric: positive: Oriented x3, Motor nml - LABS Result Diagrams: 12/09/23 12:22 12/09/23 05:10 - SEPSIS Current Stage of Sepsis: Ruled out - QUALITY (Female Hip Fx Only) Was patient sent home on osteoporosis medication?: No - FOLLOW UP Follow Up: Follow-up in 2-[address] Joanna Shepherd and Dr. Zack Navarrete. - TIME SPENT Time Spent in Discharge (Minutes): 28"
[2023-12-09 17:33] VITALS: BP 148/81; O2SAT 97
== END 2023-12-09 17:31 | disposition home or self-care (01) | DRG 378 ==
LOC: ED 14:41 → MS2 18:04
PROVIDERS: ADMIT Physician Assistant Medical; ATTEND Internal Medicine
PROC: 0W3P8ZZ Control Bleeding in Gastrointestinal Tract, Via Natural or Artificial Opening Endoscopic (ICD-10-PCS; 2023-12-08)
PROC: 0DB78ZX Excision of Stomach, Pylorus, Via Natural or Artificial Opening Endoscopic, Diagnostic (ICD-10-PCS; principal; 2023-12-08 09:00)
DX: K92.2 Gastrointestinal hemorrhage, unspecified (principal); K25.4 Chronic or unspecified gastric ulcer with hemorrhage; D62 Acute posthemorrhagic anemia; E27.3 Drug-induced adrenocortical insufficiency; E23.0 Hypopituitarism; T45.1X5A Adverse effect of antineoplastic and immunosuppressive drugs, initial encounter; R19.7 Diarrhea, unspecified; E03.9 Hypothyroidism, unspecified; Z85.820 Personal history of malignant melanoma of skin; Z79.82 Long term (current) use of aspirin; Z92.21 Personal history of antineoplastic chemotherapy; I95.89 Other hypotension; E87.6 Hypokalemia; I10 Essential (primary) hypertension
CPT/HCPCS: 36415; 80048; 80053; 82272; 82607; 82728; 82746; 83036; 83540; 83605; 83690; 83735; 84439; 84443; 84466; 85014; 85018; 85025; 85045; 85610; 86850; 86900; 86901; 87633; 93005; 96361; 96374; 99284; 99285; A9270; J2916; J7120; 87338